=== PATIENT | female | born 1945 | race Caucasian/White ===

== ENCOUNTER → 2017-05-06 10:09 | Outpatient (CLI) | payer MEDICARE, OTHER, SELFPAY ==
[2017-05-06 12:47] LABS: Vitamin D,25 Hydroxy 27.3 ng/mL (19.95-100.01)
== END ==
PROVIDERS: Family Provider Internal Medicine; PCP Internal Medicine; Visit Provider Podiatrist
DX: S92.352A Displaced fracture of fifth metatarsal bone, left foot, initial encounter for closed fracture (principal); X58.XXXA Exposure to other specified factors, initial encounter; E55.9 Vitamin D deficiency, unspecified
CPT/HCPCS: 36415; 82306

== ENCOUNTER → 2017-12-24 09:58 | Outpatient (CLI) | payer MEDICARE, OTHER, SELFPAY | PROVIDERS: Family Provider Internal Medicine; PCP Internal Medicine; Referring Provider Podiatrist; Visit Provider Podiatrist | DX: L03.032 Cellulitis of left toe (principal) ==

== ENCOUNTER → 2017-12-24 18:02 | Outpatient (CLI) | payer SELFPAY | PROVIDERS: Visit Provider Podiatrist | DX: S91.105A Unspecified open wound of left lesser toe(s) without damage to nail, initial encounter (principal) | CPT/HCPCS: 87070; 87075; 87205 ==

== ENCOUNTER → 2018-05-29 15:38 | Outpatient (CLI) | payer MEDICARE, OTHER, SELFPAY ==
[2015-09-16 09:15] VITALS: BMI 29.2
== END ==
PROVIDERS: Referring Provider Internal Medicine Pulmonary Disease; Visit Provider Internal Medicine Pulmonary Disease
DX: J44.9 Chronic obstructive pulmonary disease, unspecified (principal); R05 Cough
CPT/HCPCS: 87070; 87077; 87186; 87205

== ENCOUNTER → 2018-08-21 09:44 | Outpatient (CLI) | payer MEDICARE, OTHER, SELFPAY ==
[2015-09-16 09:15] VITALS: BMI 29.2
[2018-08-21 12:23] LABS: Absolute Lymphocyte Count 1.54 X10^3/ul (0.83-4.51); Absolute Neutrophil Count 3.3 X10^3/uL (2.0-7.7); Basophil# 0.02 X10^3/uL; Basophil% 0.4 % (0-1); Eosinophil# 0.27 X10^3/uL; Eosinophils% 4.9 % (0-5); Hematocrit 41.2 % (37-47); Hemoglobin 13.3 g/dl (12.0-15.0); Lymphocyte # 1.54 X10^3/ul (4.0); Lymphocyte % 28.1 % (19-41); Mean Corp Hgb Conc 32.3 g/gl (32-36); Mean Corpuscular Hgb 27.1 pg (27.0-32.0); Mean Corpuscular Volume 84.1 fL (81-99); Mean Platelet Vol. 9.9 fl (6.2-12.0); Monocyte% 5.5 % (0-10); Neutrophil # 3.34 X10^3/uL (2.7-7.7); Neutrophil % 60.9 % (47-70); Platelet Count 163 K/mm3 (150-450); RBC Distribution Width CV 14.9 % (11.6-14.6); RBC Distribution Width SD 45.3 fl (35.1-43.9); White Blood Count 5.5 K/mm3 (4.4-11.0)
[2018-08-21 12:36] LABS: POSITIVE COUNT NO; POSITIVE DIFFERENTIAL NO; POSITIVE MORPHOLOGY NO
[2018-08-21 12:37] LABS: AST(SGOT) 25 U/L (15-37); Alanine Aminotransfer ALT/SGPT 27 U/L (13-56); Albumin, Serum 3.7 g/dL (3.2-5.0); Alkaline Phosphatase 92 U/L (45-117); Anion Gap 6 (5-15); BUN 24 mg/dL (7-18); BUN/Creat Ratio 22.6 RATIO (10-20); Calcium,Total 8.8 mg/dL (8.5-10.1); Chloride 107 mmol/L (98-107); Cholesterol 145 mg/dL (200); Creatinine, Serum 1.06 mg/dL (0.55-1.02); EST Glomerular Filtration Rate 54 mL/min (>60); Est Glom Filt Rate - Afr Amer 66 mL/min (>60); Free T3 1.6 pg/mL (2.18-3.98); Globulin 3.7 g/dL (2.2-4.2); Glucose 88 mg/dL (74-106); High Density Lipoprotein 35 mg/dL; Potassium 4.2 mmol/L (3.5-5.1); Protein, Total 7.4 g/dL (6.4-8.2); Sodium Level 138 mmol/L (136-145); T4 Free Direct 1.01 ng/dL (0.76-1.46); Thyroid Stim Hormone (TSH) 3.48 uIU/mL (0.358-3.74); Triglycerides 152 mg/dL; Very Low Density Lipoprotein 30 mg/dL (5-40)
[2018-08-21 13:16] LABS: Vitamin D,25 Hydroxy 38.6 ng/mL (29.95-100.01)
== END ==
PROVIDERS: Family Provider Family Medicine; PCP Family Medicine; Referring Provider Family Medicine; Visit Provider Family Medicine
DX: E55.9 Vitamin D deficiency, unspecified (principal); E03.9 Hypothyroidism, unspecified; E78.5 Hyperlipidemia, unspecified; R53.83 Other fatigue; Z51.81 Encounter for therapeutic drug level monitoring
CPT/HCPCS: 36415; 80053; 80061; 82306; 84439; 84443; 84481; 85025

== ENCOUNTER → 2018-08-21 13:16 | Outpatient (CLI) | payer MEDICARE, OTHER, SELFPAY ==
[2015-09-16 09:15] VITALS: BMI 29.2
--- NOTE | 2018-08-21 13:18 | US_ITS ---
STUDY: THYROID ULTRASOUND REASON FOR EXAM: Female, 73 years old. Thyromegaly TECHNIQUE: Ultrasound evaluation of the thyroid was performed with real-time and static stevens-scale imaging. COMPARISON: None. FINDINGS: RIGHT LOBE: The right lobe of the thyroid gland measures 3.1 x 1.1 x 1.0 cm. There is a homogeneous echotexture. There is a well-defined hypoechoic nodule of the posterior mid pole measuring 0.8 x 0.7 x 0.5 cm. There is minimal perinodular vascularity. Margins are regular. LEFT LOBE: The left lobe of the thyroid gland measures 3.1 x 0.8 x 0.9 cm. There is a homogeneous echotexture. There are no demonstrated solid, cystic or complex lesions. ISTHMUS: The isthmus measures 2 mm . The regional lymph nodes are normal. US/Thyroid IMPRESSION: Well-defined hypoechoic nodule of the posterior midpole of the right thyroid lobe measuring 0.8 x 0.7 x 0.5 cm. There is minimal perinodular vascularity. Margins are regular. There is no thyromegaly. Follow-up ultrasound in 6 months is recommended to assess for stability. Electronically Signed: Obey Hernandez MD at 22:10 EDT , Service support ,
== END ==
PROVIDERS: Family Provider Family Medicine; PCP Family Medicine; Referring Provider Family Medicine; Visit Provider Family Medicine
DX: E03.9 Hypothyroidism, unspecified (principal); E01.0 Iodine-deficiency related diffuse (endemic) goiter; E55.9 Vitamin D deficiency, unspecified; E78.5 Hyperlipidemia, unspecified; R53.83 Other fatigue; Z51.81 Encounter for therapeutic drug level monitoring
CPT/HCPCS: 36415; 76536; 80053; 80061; 82306; 84439; 84443; 84481; 85025

== ENCOUNTER → 2019-01-01 10:21 | Outpatient (CLI) | payer MEDICARE, OTHER, SELFPAY ==
[2015-09-16 09:15] VITALS: BMI 29.2
[2019-01-01 11:33] LABS: Absolute Lymphocyte Count 1.26 X10^3/uL (0.83-4.51); Basophil# 0.02 X10^3/uL; Basophil% 0.4 % (0-1); Eosinophil# 0.12 X10^3/uL; Eosinophils% 2.5 % (0-5); Hematocrit 40.5 % (37-47); Hemoglobin 12.9 g/dL (12.0-15.0); Lymphocyte # 1.26 X10^3/ul (4.0); Lymphocyte % 26.8 % (19-41); Mean Corp Hgb Conc 31.9 g/dL (32-36); Mean Corpuscular Volume 84.9 fL (81-99); Mean Platelet Vol. 9.8 fl (6.2-12.0); Monocyte# 0.29 X10^3/uL; Monocyte% 6.2 % (0-10); NRBC Flagged by Analyzer 0 % (0-5); Neutrophil # 3.01 X10^3/uL (2.7-7.7); Neutrophil % 63.9 % (47-70); Platelet Count 143 K/mm3 (150-450); RBC Distribution Width CV 14.4 % (11.6-14.6); RBC Distribution Width SD 44.6 fl (35.1-43.9); Red Blood Count 4.77 M/mm3 (4.2-5.4); White Blood Count 4.7 K/mm3 (4.4-11.0)
== END ==
PROVIDERS: Family Provider Family Medicine; PCP Family Medicine; Referring Provider Internal Medicine Pulmonary Disease; Visit Provider Internal Medicine Pulmonary Disease
DX: J44.9 Chronic obstructive pulmonary disease, unspecified (principal); T78.40XA Allergy, unspecified, initial encounter
CPT/HCPCS: 36415; 85025

== ENCOUNTER → 2019-02-20 09:02 | Outpatient (CLI) | payer MEDICARE, OTHER, SELFPAY ==
--- NOTE | 2019-02-20 09:05 | US_ITS ---
STUDY: THYROID ULTRASOUND REASON FOR EXAM: Female, 73 years old. Thyroid nodule TECHNIQUE: Ultrasound evaluation of the thyroid was performed with real-time and static stevens-scale imaging. COMPARISON: 08/21/2018 FINDINGS: RIGHT LOBE: The right lobe of the thyroid gland measures 2.9 x 1.2 x 1.1 cm. There is a homogeneous echotexture. There is no change in the 8 mm hypoechoic solid nodule posteriorly in the right lobe consistent with an adenoma. LEFT LOBE: The left lobe of the thyroid gland measures 3.4 x 1.0 x 1.2 cm. There is a homogeneous echotexture. There are no demonstrated solid, cystic or complex lesions. ISTHMUS: The isthmus measures 2 mm thick. . The regional lymph nodes are normal. US/Thyroid IMPRESSION: No change in 8mm adenoma the right lobe. Electronically Signed: Hunter Dai MD at 11:16 EST Tel , Service support ,
== END ==
PROVIDERS: Family Provider Family Medicine; PCP Family Medicine; Referring Provider Family Medicine; Visit Provider Family Medicine
DX: E04.1 Nontoxic single thyroid nodule (principal)
CPT/HCPCS: 76536

== ENCOUNTER 2019-05-14 15:35 | Emergency (ER) | payer MEDICARE, OTHER, SELFPAY ==
[2019-05-14 15:37] VITALS: BP 137/90; PULSE 112; RESP 18; TEMP 37.3; O2SAT 96; BMI 28.8
--- NOTE | 2019-05-14 16:53 | RAD_ITS ---
STUDY: X-RAY - LEFT KNEE REASON FOR EXAM: Female, 73 years old. pain after fall TECHNIQUE: 3 view(s) of the knee. COMPARISON: None. FINDINGS: Normal visualized distal femur. Normal visualized proximal tibia and fibula. Normal proximal tibiofibular articulation. Mildly narrowed medial femorotibial compartment. Normal lateral femorotibial compartment. Normal patellofemoral articulation. The soft tissue structures are unremarkable. RAD/Knee 3 Views IMPRESSION: Mild degenerative changes. No evidence for acute fracture Electronically Signed: Irwin Pena MD at 18:08 EST , Service support ,
--- NOTE | 2019-05-14 16:53 | RAD_ITS ---
STUDY: X-RAY - PELVIS REASON FOR EXAM: Female, 73 years old. pain after fall TECHNIQUE: One view of the pelvis was obtained. COMPARISON: None. FINDINGS: There is a non-specific bowel gas pattern. Normal visualized soft tissue structures. Normal bilateral iliac wings, sacroiliac joints and visualized sacrum. Normal visualized bilateral superior and inferior pubic rami. Normal pubic symphysis. Normal ischial tuberosities. Normal visualized right femoral head. Normal right acetabulum. Normal right hip joint. Normal visualized left femoral head. Normal left acetabulum. Severely narrowed left hip joint RAD/Pelvis 1 or 2 Views IMPRESSION: No evidence for acute hip or pelvic fracture Electronically Signed: Irwin Pena MD at 18:07 EST , Service support ,
--- NOTE | 2019-05-14 16:53 | RAD_ITS ---
STUDY: X-RAY - LEFT FEMUR REASON FOR STUDY: Female, 73 years old. pain after fall TECHNIQUE: 4 view(s) of the femur. COMPARISON: None. FINDINGS: Normal visualized femur. Normal visualized soft tissue structure. 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
--- NOTE | 2019-05-14 16:53 | CT_ITS ---
STUDY: CT CERVICAL SPINE WITHOUT CONTRAST REASON FOR EXAM: Female, 73 years old. PT STATED FALL YESTERDAY RADIATION DOSAGE (If Supplied By Facility): CTDIvol = ( 22.26 ) mGy, DLP = ( 493.39 ) mGycm TECHNIQUE: High resolution transaxial imaging was performed without contrast material. Sagittal and coronal images were reconstructed. Individualized dose optimization techniques were used for this CT. COMPARISON: None FINDINGS: Normal craniovertebral junction. Normal anterior atlantoaxial articulation. Normal odontoid process. Decreased cervical lordosis. Normal vertebral bodies and posterior osseous elements. C2-3: Normal endplates. Normal disc height and morphology. Normal central canal. Mild right neuroforaminal stenosis and severe narrowing on the left secondary to bony hypertrophy. C3-4: Mild endplate spurring.. Normal disc height and morphology. Normal central canal. Severe bilateral neuroforaminal stenosis secondary to bony hypertrophy. C4-5: Mild endplate spurring.. Normal disc height and morphology. Normal central canal. Mild bilateral neural foraminal encroachment secondary to bony hypertrophy.. C5-6: Narrowed disc space and endplate spurring. Mild narrowing of the central canal. Severe right neuroforaminal stenosis secondary to bony hypertrophy. C6-7: Narrowed disc space and endplate spurring. No focal disc protrusion. Moderate left neuroforaminal stenosis secondary to bony hypertrophy.. C7-T1: Normal endplates. Normal disc height and morphology. Normal central canal and intervertebral neuroforamina. Normal visualized soft tissue structures. CT/Spine Cervical without Contras IMPRESSION: No evidence for acute fracture or subluxation. Advanced spondylosis and multilevel spinal stenosis largely due to bony hypertrophy. Electronically Signed: Irwin Pena MD at 17:47 EST , Service support ,
--- NOTE | 2019-05-14 16:53 | CT_ITS ---
STUDY: CT BRAIN WITHOUT CONTRAST REASON FOR EXAM: Female, 73 years old. PT STATED FALL YESTERDAY RADIATION DOSAGE (If Supplied By Facility): CTDIvol = ( 44.99 ) mGy, DLP = ( 779.24 ) mGycm TECHNIQUE: Transaxial CT imaging of the brain was performed without administration of intravenous contrast material. Individualized dose optimization techniques were used for this CT. COMPARISON: No relevant priors. FINDINGS: Normal soft tissue structures. Normal calvarium. Calcification of cavernous carotids. Mild atrophy and moderate periventricular white matter ischemic changes. Normal basal ganglia and thalami. Normal brainstem. Normal cerebellum. There is no intracranial hemorrhage. There are no findings of an acute ischemic infarction. Normal visualized paranasal sinuses. CT/Brain/Head without Contrast IMPRESSION: Moderate periventricular white matter ischemic changes. No evidence for acute intracranial bleed. Electronically Signed: Irwin Pena MD at 17:43 EST , Service support ,
--- NOTE | 2019-05-14 16:53 | RAD_ITS ---
STUDY: X-RAY - LEFT TIBIA AND FIBULA REASON FOR EXAM: Female, 73 years old. pain after fall TECHNIQUE: 2 view(s) of the tibia and fibula were obtained. COMPARISON: None. FINDINGS: Normal visualized tibia. Normal visualized fibula. The soft tissue structures are unremarkable. RAD/Tibia & Fibula 2 Views IMPRESSION: Normal x-ray examination of the tibia and fibula. Electronically Signed: Irwin Pena MD at 18:08 EST , Service support ,
--- NOTE | 2019-05-14 16:53 | RAD_ITS ---
STUDY: X-RAY - LEFT FOOT CLINICAL: Female, 73 years old. pain after a fall TECHNIQUE: 3 view(s) of the foot. COMPARISON: None. FINDINGS: Status post talonavicular fusion.. Prominent posterior enthesophyte of the calcaneus Normal visualized subtalar, talonavicular, calcaneocuboid, tarsal and tarsometatarsal articulations. Normal metatarsi. Normal metatarsophalangeal joint of the great toe. Normal tibial and fibular sesamoid bones. Normal interphalangeal joint of the great toe. Normal phalanges of the great toe. Normal second through fifth metatarsophalangeal joints. Normal interphalangeal joints. 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 The soft tissue structures are unremarkable. RAD/Foot min 3 Views IMPRESSION: No evidence for acute fracture or dislocation. Other findings as above Electronically Signed: Irwin Pena MD at 18:05 EST , Service support ,
--- NOTE | 2019-05-14 16:54 | EKG12_ITS ---
Test Reason : FELL Blood Pressure : / mmHG Vent. Rate : 104 BPM Atrial Rate : 104 BPM P-R Int : 132 ms QRS Dur : 068 ms QT Int : 320 ms P-R-T Axes : -12 -49 -19 degrees QTc Int : 420 ms Sinus tachycardia Left axis deviation Anterolateral infarct , age undetermined , cannot be excluded Abnormal ECG Confirmed by JORDON MANN, HEMA ([id number]), tape editor MILI MARTELL ([id number]) on 05/18/2019 9:51:26 AM Referred By: NOEMI Confirmed By:HEMA RUVALCABA MD
--- NOTE | 2019-05-14 16:59 | ED.VIS.FALL ---
History of Present Illness Chief Complaint: Fall Informant: Patient, Family Occurred: Yesterday Mechanism/Context: Same level fall Usually ambulates: Walker Quality of Pain: - - pain Current Severity: Severe Maximum Severity: Severe Worsened by: movement, palpation Relieved by: nothing Narrative: Patient fell last night in her bathroom and has no idea why or if she had any prodromal symptoms or not. Son states that she had a sudden syncopal episode 4 months ago and wonders if maybe she had another one today but he did not witness it, he just heard her fall from another room and then went to find her dazed but not unconscious. She has fibromyalgia for which she sees pain management and is on Opana in addition to other pain medications, walks with a walker at baseline, and states that her pain is usually relatively well controlled but has not been since she fell yesterday. She has not been able to walk at all since then due to pain in her left lower extremity mostly. She also hit her head and it is giving her pain throughout her neck as well. No new focal neurologic symptoms but she has a history of weakness in her left side due to polio. - Past Medical History (1) Fibromyalgia Status: Chronic (2) Polio Status: Chronic Past Medical History - Allergies and Home Meds Allergies/Adverse Reactions: Allergies meperidine HCl [From Demerol] Allergy (Verified 05/14/19 15:35) HALLUCINATIONS Primary Care Physician: Norma Contreras DO [Primary Care Provider] - Lives: With Family Smoking Status: Former smoker Review of Systems General: Denies: Chills, Fever, Sweats Eyes: Denies: Visual changes - bilaterally, Diplopia ENT: Denies: Bilateral ear pain, Rhinorrhea, Sore throat Cardiovascular: Denies: Chest pain, Palpitations Respiratory: Denies: Dyspnea, Cough, Dyspnea on exertion Gastrointestinal: Denies: Abdominal pain, Nausea, Vomiting, Diarrhea, Melena, Hematochezia Genitourinary: Denies: Dysuria, Hematuria, Frequency Musculoskeletal: Reports: Neck pain, Back pain - Chronic, unchanged, Extremity Pain Skin: Denies: Rash, Abscess, Wounds Neurological: Reports: Headache, Weakness - Chronic left side, unchanged. Denies: Numbness Psych: Reports: Anxiety. Denies: Suicidal thoughts Physical Exam Vital Signs/Narrative: Vital Signs Temp Pulse Resp BP Pulse Ox 05/14/19 15:37 99.2 F H 112 H 18 137/90 H 96 Inital Vital Signs reviewed: Yes General: Well nourished, Well developed, - - NAD. Appears uncomfortable in pain Head: Normocephalic, Atraumatic Eyes: Perrl, EOMI ENT: TM's clear, No hemotympanum or drainage, No trauma, - - No midfacial tenderness/trauma. Negative for: Hemotympanum, Otorrhea, Nasal trauma Neck: Spinal Tenderness - Diffuse without step-off or evidence of trauma, Paraspinal Tenderness - Diffuse bilateral Cardiovascular: Regular rate, Regular rhythm, No murmurs Respiratory: No distress, CTA bilaterally, Chest nontender Abdomen: Soft, Nontender, Nondistended, Normal bowel sounds Back: Nontender Extremeties: Able to move left lower extremity throughout. Limited in ankle. Tenderness throughout the left lower extremity even with very superficial palpation, with the exception only at the toes. She is tender everywhere else and it is a very nonfocal exam, from the hip all the way down to the foot. There is a small contusion on the patella anteriorly. There is no deformities. There is no effusion in the knee. The ankle appears little swollen diffusely. The other 3 extremities are atraumatic with range of motion throughout without pain. Skin: Normal color, No rash, No Trauma Neurological: Alert, Oriented x3, Cranial nerves II-XII grossly intact, Normal Sensation, Weakness - Mild, left side Psychological: - - Anxious Diagnostic/Tx/Re-eval Impressions Brain CT 05/14/19 16:53 IMPRESSION: Moderate periventricular white matter ischemic changes. No evidence for acute intracranial bleed. Electronically Signed: Irwin Pena MD at 17:43 EST , Service support , Cervical Spine CT 05/14/19 16:53 IMPRESSION: No evidence for acute fracture or subluxation. Advanced spondylosis and multilevel spinal stenosis largely due to bony hypertrophy. 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 Other findings as above Electronically Signed: Irwin Pena MD at 18:05 EST , Service support , Knee X-Ray 05/14/19 16:53 IMPRESSION: Mild degenerative changes. No evidence for acute fracture Electronically Signed: Irwin Pena MD at 18:08 EST , Service support , Pelvis X-Ray 05/14/19 16:53 IMPRESSION: No evidence for acute hip or pelvic fracture Electronically Signed: Irwin Pena MD at 18:07 EST , Service support , Tibia/Fibula X-Ray 05/14/19 16:53 IMPRESSION: Normal x-ray examination of the tibia and fibula. Electronically Signed: Irwin Pena MD at 18:08 EST , Service support , Ankle X-Ray 05/14/19 17:30 IMPRESSION: Bimalleolar sprain. No evidence for acute fracture Electronically Signed: Irwin Pena MD at 18:02 EST , Service support , 05/14/19 16:53 CT Brain [Brain/Head without Contrast] [CT] Stat Femur Min 2 Views [RAD] Stat Foot min 3 Views [RAD] Stat Knee 3 Views [RAD] Stat Pelvis 1 or 2 Views [RAD] Stat Spine Cervical without Contras [CT] Stat Tibia & Fibula 2 Views [RAD] Stat 05/14/19 17:30 Ankle min 3 Views [RAD] Stat Laboratory Results 05/14/19 05/14/19 05/14/19 17:10 17:10 18:40 WBC 8.3 RBC 4.78 Hgb 12.4 Hct 39.9 MCV 83.5 MCH 25.9 L MCHC 31.1 L RDW Std Deviation 47.7 H RDW Coeff of Shahnaz 15.7 H Plt Count 120 L MPV 10.3 Immature Gran % (Auto) 0.100 Neut % (Auto) 87.4 H Lymph % (Auto) 7.7 L [place] % (Auto) 4.3 Eos % (Auto) 0.4 Baso % (Auto) 0.1 Absolute Neuts (auto) 7.2 Absolute Lymphs (auto) 0.64 L Nucleated RBC % 0 Sodium 139 Potassium 3.8 Chloride 107 Carbon Dioxide 27.0 Anion Gap 5 BUN 19 H Creatinine 1.00 Estim Creat Clear Calc 42.68 Est GFR (MDRD) Af Amer 70 Est GFR (MDRD) Non-Af 58 L BUN/Creatinine Ratio 19.0 Glucose 106 Calcium 9.0 Troponin I < 0.015 Urine Color Yellow Urine Clarity Clear Urine pH 6.0 Ur Specific Lilly 1.020 Urine Protein 30 H Urine Glucose (UA) Normal Urine Ketones 50 H Urine Occult Blood 25 H Urine Nitrite Negative Urine Bilirubin Negative Urine Urobilinogen Normal Ur Leukocyte Esterase 25 H Urine RBC 0 SEEN Urine WBC 0-5 SEEN Ur Squamous Epith Cells 0-5 SEEN Urine Bacteria RARE Urine Mucus 0 SEEN - Rhythm Strip Rhythm Strip: Sinus Tach Rate: 104 Ectopy: None - EKG Initial EKG Interpretation: No Acute Injury Pattern, Sinus Tachycardia, Non-Specific ST Changes, - - lad Prior: No Prior - Medical Decision Making Work-up is unremarkable. She did not lose consciousness, but he has been found her awake right after the fall. Work-up shows no sign of an intracranial injury, cervical injury, or bony injury of the left lower extremity. Her left ankle is a little swollen, family states it was not like that before the fall, consistent with a sprain. The exact mechanism of the injury of her ankle is unknown. She had an extended visit in the ER because she was in so much pain, her fibromyalgia did not help matters. She was having neck spasms. She was not able to bear weight, but once we got an Aircast on her ankle, she was able to bear weight with a walker without any other assistance. is comfortable taking her home. Given appropriate discharge instructions and reasons to return. The cause of the fall is unknown but I see no concerning abnormalities on her work-up. This is only the second time this is happened, and as I discussed with the , I know she is on muscle relaxers and medication such as Opana can certainly cause people to have a higher risk of falling, but she also has a history of polio with residual weakness in the left lower extremity which could also cause her to fall. Follow-up advised. ED Disposition - Plan for ED Patient: Disposition: Home or Assisted Living Diagnosis: Fibromyalgia, Injury of left lower extremity, Fall, Left ankle sprain, Cervical strain, acute Instructions: FALL, Uncertain Cause, Sprain, Ankle, with X-Ray Referrals: Norma Contreras DO [Primary Care Provider] - 3-5 Days
--- NOTE | 2019-05-14 17:06 | ED.RN ---
NO OLD EKG
[2019-05-14] MEDS: HYDROmorphone 1 MG/ML Syringe IV (17:12)
[2019-05-14 17:25] LABS: Absolute Lymphocyte Count 0.64 X10^3/uL (0.83-4.51); Absolute Neutrophil Count 7.2 X10^3/uL (2.0-7.7); Basophil# 0.01 X10^3/uL; Basophil% 0.1 % (0-1); Eosinophil# 0.03 X10^3/uL; Eosinophils% 0.4 % (0-5); Hematocrit 39.9 % (37-47); Hemoglobin 12.4 g/dL (12.0-15.0); Lymphocyte # 0.64 X10^3/ul (4.0); Lymphocyte % 7.7 % (19-41); Mean Corp Hgb Conc 31.1 g/dL (32-36); Mean Corpuscular Hgb 25.9 pg (27.0-32.0); Mean Corpuscular Volume 83.5 fL (81-99); Mean Platelet Vol. 10.3 fl (6.2-12.0); Monocyte# 0.36 X10^3/uL; Monocyte% 4.3 % (0-10); NRBC Flagged by Analyzer 0 % (0-5); Neutrophil # 7.23 X10^3/uL (2.7-7.7); Neutrophil % 87.4 % (47-70); Platelet Count 120 K/mm3 (150-450); RBC Distribution Width CV 15.7 % (11.6-14.6); RBC Distribution Width SD 47.7 fl (35.1-43.9); Red Blood Count 4.78 M/mm3 (4.2-5.4); White Blood Count 8.3 K/mm3 (4.4-11.0)
--- NOTE | 2019-05-14 17:30 | RAD_ITS ---
STUDY: X-RAY - LEFT ANKLE REASON FOR EXAM: Female, 73 years old. fall yesterday, pain TECHNIQUE: 3 view(s) of the ankle. COMPARISON: None. FINDINGS: Normal visualized distal tibia and fibula. Normal medial and lateral malleoli. Normal tibiotalar articulation and ankle mortise. Normal visualized talus . Plantar calcaneal spur and posterior enthesophyte The visualized subtalar, talonavicular, calcaneocuboid and tarsal articulations are normal. Bimalleolar soft tissue swelling.. RAD/Ankle min 3 Views IMPRESSION: Bimalleolar sprain. No evidence for acute fracture Electronically Signed: Irwin Pena MD at 18:02 EST , Service support ,
[2019-05-14 17:43] LABS: Anion Gap 5 (5-15); BUN 19 mg/dL (7-18); Chloride 107 mmol/L (98-107); EST Glomerular Filtration Rate 58 mL/min (>60); Est Glom Filt Rate - Afr Amer 70 mL/min (>60); Estimated Creatinine Clearance 42.68 ml/min; Glucose 106 mg/dL (74-106); Potassium 3.8 mmol/L (3.5-5.1); Sodium Level 139 mmol/L (136-145)
[2019-05-14 17:52] VITALS: BP 137/75; PULSE 110; RESP 18; O2SAT 99
[2019-05-14 18:53] LABS: Mucous, Urine 0 SEEN /hpf (<or=2+); Red Blood Cells-Urine 0 SEEN /hpf (0-5)
[2019-05-14 19:01] VITALS: BP 90/75; PULSE 107; RESP 16; O2SAT 95
[2019-05-14 19:01] LABS: Color, Urine Yellow (Yellow); Glucose, Dipstick Normal (Normal); Ketone-Dipstick 50 mg/dl (Negative); Leukocyte Esterase-Dipstick 25 /ul (Negative); Nitrite-Dipstick Negative (Negative); Occult Blood-Urine 25 /ul (Negative); Protein-Dipstick 30 mg/dl (Negative); Urine Bilirubin Dipstick Negative (Negative); Urine Clarity Clear (Clear); Urine Urobilinogen Normal (Normal)
[2019-05-14 19:39] LABS: Bacteria RARE /hpf (None Seen); Squamous Epithelial Cells - UA 0-5 SEEN /hpf (5-10); White Blood Cells 0-5 SEEN /hpf (0-5)
[2019-05-14] MEDS: HYDROmorphone 0.5 MG/0.5 ML SYRINGE IV (20:18)
[2019-05-14 21:00] VITALS: BP 102/77; PULSE 102; RESP 17; O2SAT 94
[2019-05-14 22:22] VITALS: BP 101/87; PULSE 100; RESP 18; O2SAT 98
== END 2019-05-14 22:23 | disposition home or self-care (01) ==
PROVIDERS: Emergency Provider Emergency Medicine; PCP Family Medicine
DX: S16.1XXA Strain of muscle, fascia and tendon at neck level, initial encounter (principal); S93.402A Sprain of unspecified ligament of left ankle, initial encounter; S80.02XA Contusion of left knee, initial encounter; W18.39XA Other fall on same level, initial encounter; Y93.9 Activity, unspecified; Y92.012 Bathroom of single-family (private) house as the place of occurrence of the external cause; M79.7 Fibromyalgia; Z87.891 Personal history of nicotine dependence
CPT/HCPCS: 70450; 72125; 72170; 73552; 73562; 73590; 73610; 73630; 80048; 81001; 84484; 85025; 93005; 96361; 96374; 96376; 99285; J7040; A4216

== ENCOUNTER → 2019-08-24 08:32 | Outpatient (CLI) | payer MEDICARE, OTHER, SELFPAY ==
[2019-08-24 09:18] LABS: Absolute Lymphocyte Count 1.39 X10^3/uL (0.83-4.51); Absolute Neutrophil Count 3.1 X10^3/uL (2.0-7.7); Basophil# 0.03 X10^3/uL; Basophil% 0.6 % (0-1); Eosinophil# 0.21 X10^3/uL; Eosinophils% 4.3 % (0-5); Hematocrit 41.9 % (37-47); Hemoglobin 13.3 g/dL (12.0-15.0); Lymphocyte # 1.39 X10^3/ul (4.0); Lymphocyte % 28.2 % (19-41); Mean Corp Hgb Conc 31.7 g/dL (32-36); Mean Corpuscular Hgb 27.1 pg (27.0-32.0); Mean Corpuscular Volume 85.5 fL (81-99); Mean Platelet Vol. 10.4 fl (6.2-12.0); Monocyte# 0.23 X10^3/uL; Monocyte% 4.7 % (0-10); NRBC Flagged by Analyzer 0 % (0-5); Neutrophil # 3.06 X10^3/uL (2.7-7.7); POSITIVE COUNT YES; RBC Distribution Width SD 46.8 fl (35.1-43.9); White Blood Count 4.9 K/mm3 (4.4-11.0)
[2019-08-24 09:21] LABS: Platelet Count 106 K/mm3 (150-450)
[2019-08-24 09:56] LABS: ALB/GLOB Ratio 0.9 RATIO (0.9-2.4); AST(SGOT) 38 U/L (15-37); Alanine Aminotransfer ALT/SGPT 28 U/L (13-56); Albumin, Serum 3.5 g/dL (3.2-5.0); Alkaline Phosphatase 96 U/L (45-117); Anion Gap 4 (5-15); BUN 16 mg/dL (7-18); BUN/Creat Ratio 17.5 RATIO (10-20); Calcium,Total 9.7 mg/dL (8.5-10.1); Chloride 107 mmol/L (98-107); Cholesterol 151 mg/dL (200); Creatinine, Serum 0.91 mg/dL (0.55-1.02); EST Glomerular Filtration Rate 64 mL/min (>60); Est Glom Filt Rate - Afr Amer 78 mL/min (>60); Free T3 1.6 pg/mL (2.18-3.98); Glucose 82 mg/dL (74-106); High Density Lipoprotein 37 mg/dL; Potassium 4.4 mmol/L (3.5-5.1); Protein, Total 7.5 g/dL (6.4-8.2); Sodium Level 141 mmol/L (136-145); T4 Free Direct 1.06 ng/dL (0.76-1.46); Thyroid Stim Hormone (TSH) 2.19 uIU/mL (0.358-3.74); Triglycerides 133 mg/dL; Very Low Density Lipoprotein 27 mg/dL (5-40)
== END ==
PROVIDERS: Family Provider Family Medicine; PCP Family Medicine; Referring Provider Family Medicine; Visit Provider Family Medicine
DX: E55.9 Vitamin D deficiency, unspecified (principal); E03.9 Hypothyroidism, unspecified; E78.5 Hyperlipidemia, unspecified; R53.83 Other fatigue; Z51.81 Encounter for therapeutic drug level monitoring
CPT/HCPCS: 36415; 80053; 80061; 82306; 84439; 84443; 84481; 85025

== ENCOUNTER → 2019-09-09 10:34 | Outpatient (CLI) | payer MEDICARE, OTHER, SELFPAY ==
--- NOTE | 2019-09-09 10:53 | EKG12_ITS ---
Test Reason : PRE OP Blood Pressure : / mmHG Vent. Rate : 083 BPM Atrial Rate : 083 BPM P-R Int : 174 ms QRS Dur : 072 ms QT Int : 360 ms P-R-T Axes : 032 -55 010 degrees QTc Int : 423 ms Normal sinus rhythm Left axis deviation Anterolateral infarct , age undetermined Abnormal ECG Confirmed by MANASA SIMS ([id number]), editor index MILI MARTELL ([id number]) on 09/15/2019 8:26:35 AM Referred By: DANNY NELSON Confirmed By:MANASA SIMS
== END ==
PROVIDERS: PCP Family Medicine
DX: Z79.899 Other long term (current) drug therapy (principal)
CPT/HCPCS: 93005

== ENCOUNTER → 2019-11-20 10:31 | Outpatient (CLI) | payer MEDICARE, OTHER, SELFPAY ==
[2019-11-20 12:44] LABS: Free T3 1.7 pg/mL (2.18-3.98); Thyroid Stim Hormone (TSH) 0.07 uIU/mL (0.358-3.74)
== END ==
PROVIDERS: PCP Family Medicine; Visit Provider Family Medicine
DX: E03.9 Hypothyroidism, unspecified (principal)
CPT/HCPCS: 36415; 84439; 84443; 84481

== ENCOUNTER → 2020-04-04 11:14 | Outpatient (CLI) | payer MEDICARE, OTHER, SELFPAY ==
[2020-04-04 13:42] LABS: T4 Free Direct 0.63 ng/dL (0.76-1.46); Thyroid Stim Hormone (TSH) 0.01 uIU/mL (0.358-3.74)
== END ==
PROVIDERS: PCP Family Medicine; Visit Provider Family Medicine
DX: E03.9 Hypothyroidism, unspecified (principal)
CPT/HCPCS: 36415; 84439; 84443; 84481

== ENCOUNTER → 2020-06-21 15:16 | Outpatient (CLI) | payer MEDICARE, OTHER, SELFPAY ==
[2020-06-21 16:50] LABS: Free T3 2.7 pg/mL (2.18-3.98); T4 Free Direct 0.43 ng/dL (0.76-1.46); Thyroid Stim Hormone (TSH) 0.02 uIU/mL (0.358-3.74)
== END ==
PROVIDERS: PCP Family Medicine; Referring Provider Family Medicine; Visit Provider Family Medicine
DX: E03.9 Hypothyroidism, unspecified (principal)
CPT/HCPCS: 84439; 84443; 84481

== ENCOUNTER → 2020-08-31 09:29 | Outpatient (CLI) | payer MEDICARE, OTHER, SELFPAY ==
--- NOTE | 2020-08-31 09:33 | EKG12_ITS ---
Test Reason : HIGH RISK MEDS Blood Pressure : / mmHG Vent. Rate : 087 BPM Atrial Rate : 087 BPM P-R Int : 164 ms QRS Dur : 074 ms QT Int : 352 ms P-R-T Axes : 032 -43 007 degrees QTc Int : 423 ms Normal sinus rhythm Left axis deviation Low voltage QRS Abnormal ECG Confirmed by CAROLINA MANN, JEWELL ([id number]), television news video editor MILI MARTELL ([id number]) on 09/01/2020 11:18:14 A M Referred By: DANNY ANAYA Confirmed By:KYLE FIGUEROA MD
== END ==
PROVIDERS: PCP Family Medicine
DX: Z79.891 Long term (current) use of opiate analgesic (principal)
CPT/HCPCS: 93005

== ENCOUNTER 2021-06-14 06:38 | Observation (INO) | payer MEDICARE, OTHER, SELFPAY ==
--- NOTE | 2021-03-14 21:15 | PCM.HP.BLA ---
History and Physical History and Physical [facility] Patient Name: Veronica Bazzi : 1945 From: ELYSE DAVIS PA-C DATE OF SURGERY: 03/22/2021 SCHEDULED PROCEDURE: left total hip arthroplasty HISTORY OF PRESENT ILLNESS: Preoperative history and physical exam was performed on March 06, 2021. This is a 75-year-old female who has had ongoing pain for years with her left hip. It is been getting progressively worse over the past 1 year. Patient's pain has been dull and stabbing with burning. Pain can reach 9/10 with activities. Pain is increased with going up and down stairs, walking, standing. She has pain getting up from a seated position. She does have start up pain. She feels weaker on the left when compared to the right. She gets occasional numbness down the left leg. Pain is located in the buttock region and groin. It does occasionally wake her at night. She feels unsafe going up and down stairs and walking due to the pain. She has difficulty with activities of daily living including housework, shopping, and leisure activities such as walking. Patient has tried rest and heat with minimal relief. She has been using a cane. She is currently in pain management in which she is currently using methadone and Percocet. Patient denies previous surgery on the left hip. 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 Patient currently denies any recent chest pain, shortness of breath, fevers chills or recent infections. We are obtaining surgical clearance from her primary care physician Dr. Contreras. We are also reaching out the patient's pain management physician for postoperative narcotics. Patient has medical history pertinent for fibromyalgia, thyroid disease, post polio, depression, chronic obstructive pulmonary disease, sleep apnea with use of CPAP machine, and hypertension. REVIEW OF SYSTEMS: ROS: Const: Reports anxiety, weight change, but denies anorexia, fever and difficulty sleeping. CV: Reports peripheral vascular disease, but denies chest pain, heart murmur and irregular heartbeat. Resp: Reports sleep apnea, shortness of breath and wheezing, but denies asthma, cough, pneumonia and tuberculosis. GI: Reports constipation, but denies diarrhea, heartburn, nausea, rectal itching, bloody stools and vomiting. : Denies incontinence. Musculo: Reports pain, trouble walking and weakness, but denies leg swelling. Skin: Denies Raynaud's, history of shingles and tattoo. Neuro: Reports difficulty with balance and dizziness but denies ambulatory dysfunction, numbness/tingling and tremor. Psych: Reports anxiety, depression and stress, but denies insomnia and mental illness. Eleazar/Lymph: Denies anemia, bleeding/bruising tendency and past transfusion. Reviewed, no changes. PAST MEDICAL HISTORY: Advance Care Plan: No Advance Directives Effective Date: 01/09/2021 PMH: Medical Problems: Arthritis, Fibromyalgia, Thyroid Disease, Post Polio, Depression, Chronic Obstructive Pulmonary Disease (COPD), Sleep Apnea, High Blood Pressure Accidents: Fracture - BACK FX - 1999 LT ANKLE FX IN [employer] RT Ankle - (05/14/2019) Surgical Hx: Appendectomy - (1966) GTZ Gallbladder - [facility]Z Shoulder Arthroscopy Rt - (12/18/2008) [facility] BY DR. SEGAL Anesthesia Complications: None Assistive Devices: Cane, Glasses, Brace Reviewed and updated. SOCIAL HISTORY: SH: Marital: .Occupation: Homemaker.Work Status: Housewife.Hand Dominance: Right-handed. Personal Habits: Cigarette Use: Former - 2 PACKS/DAY FOR 10 YEARS.Smokeless Tobacco: Never Used Smokeless Tobacco.E-Cigarette Use: Never used.Alcohol: Currently consumes alcohol, Has consumed alcohol in the past, Occasionally.Drug Use: Denies Use.Enjoy Exercising: Never Exercises. Reviewed, no changes. VITALS: Ht: 59 Wt: 131lb 4oz Wt k.535 BMI: 26.5 BP: 140/60 Pulse: 102 Resp: 20 T: 95.4 T: 35.2C Pain Level: 5 ALLERGIES: Vicodin - Sick Demerol - Goofy MEDICATIONS: Percocet 5-325 mg 1-2 po q6H PRN PAIN, Neurontin 300 mg 1 po BID, Lopressor 50 mg 1/2-1 tab PO daily, Calcium 400mg 1 tab PO tid, Trazodone HCL 150 mg 1 tab PO qhs, Zoloft 100 mg 2 tabs PO daily, Methadone HCL 5 mg 1po q12hrs prn, Senokot 8.6 mg 1 by mouth once daily, Aspirin Adult Low Dose 81 mg by mouth 1 a day, Trelegy Ellipta 100-62.5-25 mcg/Inh once A day, Prilosec OTC 20 mg 1 by mouth every day, Ventolin HFA 108 (90 Base) mcg/Act as needed, Levothyroxine Sodium 25 mcg 1po qday, Daily Vitamin , Liothyronine Sodium 25 mcg, Diclofenac Potassium 25 mg 3 daily, Atorvastatin Calcium 10 mg 1 by mouth every day, Flonase Allergy Relief 50 mcg/Act 0.5mcg, Montelukast Sodium 10 mg 1 by mouth every day, Ipratropium [place] 0.06 % twice a day, Bupropion Hydrochloride ER (XL) 300 mg, Alprazolam 0.5 mg 1 by mouth every day, Ipratropium [place] 0.06 % twice a day PRE-OP EXAM: General appearance:NORMAL Other: Eyes: Conjunctivae and lids: NORMAL Pupils: ERR Ears, Nose, Mouth, and Throat: NORMAL Other: Inspection of lips, teeth and gums: NORMAL Other: Neck: Examination of neck: no masses noted. Respiratory: Assessment of respiratory effort: NORMAL Other: Auscultation of lungs: clear to auscultation no wheezes, rhonchi or rales. Cardiovascular: Auscultation of heart: regular rate and rhythm, no murmurs, gallops or rubs. PHYSICAL EXAMINATION: Patient does walk with an antalgic gait using I cane. Patient has foot drop on the right. She has tenderness to palpation over bilateral greater trochanteric regions. Left hip range of motion: 80 flexion, internal rotation 40, external rotation 35 with pain on range of motion. 4/5 hip strength secondary to pain. Left leg is 4 mm shorter than the right. IMAGING STUDIES: Previous x-rays of the left hip reveal joint space narrowing, subchondral sclerosis, osteophyte formation consistent with severe stage IV osteoarthritis with bony erosions of the femoral head and acetabulum. Acetabulum shows evidence of dysplastic nature where shallow acetabulum likely related to her polio. IMPRESSION: 1. Severe left hip osteoarthritis 2. Fibromyalgia 3. Hypertension 4. Thyroid disease 5. Depression 6. Chronic obstructive pulmonary disease 7. Sleep apnea 8. Postpolio PLAN: Dr. Lyle Mora did discuss and review with the patient all treatment options including surgical versus nonsurgical options. Patient does wish to proceed with the above-stated procedure. Potential risks, benefits, and complications of the procedure were discussed in detail including but not limited to , infection, nerve and blood vessel damage, persistent pain, numbness, tingling, paresthesias, blood clot, pulmonary embolism, and requirement for possible further surgery. The patient expressed full understanding and has no further questions for the doctor. Patient does agree to proceed with the above-stated procedure and has signed the surgery consent form. We discussed the current risks associated with COVID 19. This does include the risk of exposure while in the hospital. Patient was reassured local hospitals have low infection rates and are taking all necessary precautions to avoid exposure to patients. In addition, we discussed strategies that can be used to help limit exposure including those that limit the patient's time in the hospital. Also using strategies to limit the patient's need for continued inpatient services after being discharged from the hospital. Patient was notified that we will need to comply with any screening or testing the hospital wishes to perform or that surgery may be delayed for any positive results. This dictation was created using voice recognition software. Phonetic and/or grammatical errors may exist. ___ I have re-examined the patient. There are no clinical changes since date of exam. ___ See progress notes for changes. ___ Dictated on admission Date: Time: Signature:
--- NOTE | 2021-03-20 10:20 | EKG12_ITS ---
Test Reason : PREOP Blood Pressure : / mmHG Vent. Rate : 079 BPM Atrial Rate : 079 BPM P-R Int : 162 ms QRS Dur : 074 ms QT Int : 372 ms P-R-T Axes : 035 -49 004 degrees QTc Int : 426 ms Normal sinus rhythm Left axis deviation Low voltage QRS Nonspecific ST abnormality Abnormal ECG Confirmed by MARY MANN, NICK ([id number]), commercial production editor JAMEE WITT ([id number]) on 03/20/2021 2:05:16 PM Referred By: Lyle Mora Confirmed By:NICK HERNANDEZ MD
[2021-03-20 10:50] LABS: Absolute Neutrophil Count 2.6 X10^3/uL (2.0-7.7); Basophil# 0.02 X10^3/uL; Basophil% 0.5 % (0-1); Eosinophil# 0.16 X10^3/uL; Eosinophils% 3.7 % (0-5); Hematocrit 38.5 % (37-47); Hemoglobin 11.8 g/dL (12.0-15.0); Lymphocyte % 27.9 % (19-41); Mean Corp Hgb Conc 30.6 g/dL (32-36); Mean Corpuscular Hgb 26.2 pg (27.0-32.0); Mean Corpuscular Volume 85.4 fL (81-99); Mean Platelet Vol. 10.5 fl (6.2-12.0); Monocyte# 0.32 X10^3/uL; Monocyte% 7.4 % (0-10); NRBC Flagged by Analyzer 0 % (0-5); Neutrophil # 2.58 X10^3/uL (2.7-7.7); Platelet Count 202 K/mm3 (150-450); RBC Distribution Width CV 15.2 % (11.6-14.6); RBC Distribution Width SD 46.2 fl (35.1-43.9); Red Blood Count 4.51 M/mm3 (4.2-5.4); White Blood Count 4.3 K/mm3 (4.4-11.0)
[2021-03-20 11:21] LABS: Magnesium 2.4 mg/dL (1.6-2.6)
[2021-03-20 11:30] LABS: Anion Gap 6 (5-15); BUN 8 mg/dL (7-18); BUN/Creat Ratio 10.2 RATIO (10-20); Calcium,Total 9.7 mg/dL (8.5-10.1); Chloride 106 mmol/L (98-107); Creatinine, Serum 0.78 mg/dL (0.55-1.02); EST Glomerular Filtration Rate 76 mL/min (>60); Est Glom Filt Rate - Afr Amer 92 mL/min (>60); Glucose 75 mg/dL (74-106); Potassium 3.8 mmol/L (3.5-5.1); Sodium Level 139 mmol/L (136-145)
--- NOTE | 2021-05-29 12:17 | RAD_ITS ---
STUDY: X-RAY CHEST REASON FOR EXAM: Female, 75 years old. Preop for pelvic surgery TECHNIQUE: PA and lateral views of the chest. COMPARISON: None. FINDINGS: The lungs are mildly hyperexpanded with chronic interstitial changes but no superimposed process. There is no demonstrated pleural abnormality. Normal size heart. Normal mediastinum and keena. Normal visualized pulmonary arteries. There is atherosclerotic calcification of the aortic arch with tortuosity. There are diffuse degenerative changes of the visualized thoracic spine. Normal visualized ribs, clavicles, and shoulders. There is no demonstrated abnormality of the visualized soft tissue structures of the upper abdomen. RAD/Chest PA and Lateral IMPRESSION: Chronic interstitial changes, no superimposed acute pulmonary process Electronically Signed: Irvin Hill MD at 10:10 EDT ,
[2021-05-29 13:25] LABS: Absolute Lymphocyte Count 1.57 X10^3/uL (0.83-4.51); Basophil# 0.02 X10^3/uL; Basophil% 0.4 % (0-1); Eosinophil# 0.23 X10^3/uL; Eosinophils% 4.5 % (0-5); Hematocrit 39.2 % (37-47); Hemoglobin 12.3 g/dL (12.0-15.0); Lymphocyte # 1.57 X10^3/ul (0.83-4.51); Lymphocyte % 30.5 % (19-41); Mean Corp Hgb Conc 31.4 g/dL (32-36); Mean Corpuscular Hgb 27.2 pg (27.0-32.0); Mean Corpuscular Volume 86.7 fL (81-99); Mean Platelet Vol. 9.7 fl (6.2-12.0); Monocyte# 0.29 X10^3/uL; Monocyte% 5.6 % (0-10); NRBC Flagged by Analyzer 0 % (0-5); Neutrophil # 3.03 X10^3/uL (2.7-7.7); Neutrophil % 58.8 % (47-70); Platelet Count 109 K/mm3 (150-450); RBC Distribution Width CV 15.2 % (11.6-14.6); RBC Distribution Width SD 48.8 fl (35.1-43.9); Red Blood Count 4.52 M/mm3 (4.2-5.4); White Blood Count 5.2 K/mm3 (4.4-11.0)
[2021-05-29 13:59] LABS: Albumin, Serum 3.6 g/dL (3.2-5.0); Anion Gap 3 (5-15); BUN 26 mg/dL (7-18); BUN/Creat Ratio 27.5 RATIO (10-20); Calcium,Total 9.8 mg/dL (8.5-10.1); Chloride 106 mmol/L (98-107); Creatinine, Serum 0.94 mg/dL (0.55-1.02); EST Glomerular Filtration Rate 62 mL/min (>60); Est Glom Filt Rate - Afr Amer 75 mL/min (>60); Glucose 78 mg/dL (74-106); Potassium 4.4 mmol/L (3.5-5.1); Sodium Level 139 mmol/L (136-145)
--- NOTE | 2021-05-30 14:34 | HP.PCM_ITS ---
History and Physical History and Physical [facility] Patient Name: Veronica Bazzi : 1945 From: ELYSE DAVIS PA-C DATE OF SURGERY: 06/14/2021 SCHEDULED PROCEDURE: left total hip arthroplasty HISTORY OF PRESENT ILLNESS: Preoperative history and physical exam was performed on May 30, 2021. This is a 75-year-old female who was initially scheduled to undergo left total hip arthroplasty in March 2021. However her preoperative lab work came back normal with low nutritional value. Patient was placed on protein shakes twice daily. Surgery was rescheduled. Patient is continued to complain of left hip pain. She has had ongoing pain for years but has always been increased over the past 1 year. Patient still gets pain constantly going up and down stairs and walking. She has increased pain with standing. She does get start up pain. She still feels weaker in the left lower leg than the right. She has increased pain getting up from a seated position. Pain awakens her at nighttime. She has fallen secondary to the hip pain. Patient feels unsafe with all activities due to the pain. Patient has tried rest, heat with minimal relief. She has used a cane for ambulatory assistance. Patient has been through clinical manager home care, physical therapy, and home exercises with no relief. She denies previous surgery on the left hip. She has been on oral medications and is currently with pain management currently using methadone and Percocet. We are in contact with the pain management doctor Dr. Mares in which we will manage the pain for the first 6 weeks following surgery. We are to stop the methadone and utilize oxycodone for pain control. We have also obtain surgical clearance from the primary care physician Dr. Contreras. Patient has medical history pertinent for fibromyalgia, thyroid disease, post polio, depression, chronic obstructive pulmonary disease, sleep apnea with use of CPAP, and hypertension. She currently denies any chest pain, shortness of breath, fevers chills or recent infections. After failing conservative measures and discussing treatment options with Dr. Lyle Mora, the patient does wish to proceed with a left total hip arthroplasty. REVIEW OF SYSTEMS: Review Of Systems: Constitutional: Reports anxiety, weight change, but denies anorexia, fever and difficulty sleeping. Cardiovasular: Reports peripheral vascular disease, but denies chest pain, heart murmur and irregular heartbeat. Respiratory: Reports sleep apnea, shortness of breath and wheezing, but denies asthma, cough, pneumonia and tuberculosis. Gastrointestinal: Reports constipation, but denies diarrhea, heartburn, nausea, rectal itching, bloody stools and vomiting. Genitourinary: Denies incontinence. Musculoskeletal: Reports pain, trouble walking and weakness, but denies leg swelling. Skin: Denies Raynaud's, history of shingles and tattoo. Neurological: Reports difficulty with balance and dizziness but denies ambulatory dysfunction, numbness/tingling and tremor. Psychiatric: Reports anxiety, depression and stress, but denies insomnia and mental illness. Hematologic/Lymphatic: Denies anemia, bleeding/bruising tendency and past transfusion. Reviewed and updated. PAST MEDICAL HISTORY: Advance Care Plan: No Advance Directives Effective Date: 01/09/2021 Past Medical History: Medical Problems: Arthritis, Fibromyalgia, Thyroid Disease, Post Polio, Depression, Chronic Obstructive Pulmonary Disease (COPD), Sleep Apnea, High Blood Pressure Accidents: Fracture - BACK FX - 1999 LT ANKLE FX IN [employer] RT Ankle - (05/14/2019) Surgical Hx: Appendectomy - (1966) [facility] Gallbladder - [facility]Z Shoulder Arthroscopy Rt - (12/18/2008) [facility] BY DR. SEGAL RT Foot Reconstruction, LT Foot Reconstruction Anesthesia Complications: None Assistive Devices: Cane, Glasses - READING, Brace Reviewed and updated. SOCIAL HISTORY: Social History: Marital: .Occupation: Homemaker.Work Status: Housewife.Hand Dominance: Right-handed. Personal Habits: Cigarette Use: Former - 2 PACKS/DAY FOR 10 YEARS.Smokeless Tobacco: Never Used Smokeless Tobacco.E-Cigarette Use: Never used.Alcohol: Denies use.Drug Use: Denies Use.Enjoy Exercising: Never Exercises. Reviewed and updated. VITALS: Ht: 62 Wt: 132lb Wt k.875 BMI: 24.1 BP: 126/80 Pulse: 83 Resp: 16 T: 97.9 T: 36.6C Pain Level: 3 ALLERGIES: Vicodin - Sick Demerol - Goofy MEDICATIONS: Ferrous Sulfate 325 (65 Fe) MG take 1 tablet by mouth twice a day, Folic Acid 1 mg 1 by mouth every day, Percocet 5-325 mg 1-2 po q6H PRN PAIN, Neurontin 300 mg 1 po BID, Lopressor 50 mg 1/2-1 tab PO daily, Calcium 400mg 1 tab PO tid, Trazodone HCL 150 mg 1 tab PO qhs, Zoloft 100 mg 2 tabs PO daily, Methadone HCL 5 mg 1po q12hrs prn, Senokot 8.6 mg 1 by mouth once daily, Aspirin Adult Low D ose 81 mg by mouth 1 a day, Trelegy Ellipta 100-62.5-25 mcg/Inh once A day, Prilosec OTC 20 mg 1 by mouth every day, Ventolin HFA 108 (90 Base) mcg/Act as needed, Levothyroxine Sodium 25 mcg 1po qday, Daily Vitamin 1po qday, Liothyronine Sodium 25 mcg, Diclofenac Potassium 25 mg 3 daily, Atorvastatin Calcium 10 mg 1 by mouth every day, Flonase Allergy Relief 50 mcg/Act 0.5mcg, Montelukast Sodium 10 mg 1 by mouth every day, Ipratropium [place] 0.06 % twice a day, Bupropion Hydrochloride ER (XL) 300 mg 1po qday, Alprazolam 0.5 mg 1 by mouth every day PRE-OP EXAM: General appearance:NORMAL Other: Eyes: Conjunctivae and lids: NORMAL Pupils: ERR Ears, Nose, Mouth, and Throat: NORMAL Other: Inspection of lips, teeth and gums: NORMAL Other: Neck: Examination of neck: no masses noted. Respiratory: Assessment of respiratory effort: NORMAL Other: Auscultation of lungs: clear to auscultation no wheezes, rhonchi or rales. Cardiovascular: Auscultation of heart: regular rate and rhythm, no murmurs, gallops or rubs. PHYSICAL EXAMINATION: Patient currently uses and I cane. She does walk with an antalgic gait. Patient has foot drop on her right lower extremity. The left hip continues to have tenderness over the lateral aspect of the greater trochanteric region. She has increased pain with any range of motion of the left hip. Flexion approximately 80, internal rotation 35, external rotation 35 with pain. 4/5 hip strength secondary to pain. Left leg is 4 mm shorter than the right. Sensation intact to light touch. IMAGING STUDIES: Previous x-rays of the left hip reveal joint space narrowing, subchondral sclerosis, osteophyte formation consistent with severe stage IV osteoarthritis with bony erosions of the femoral head and acetabulum. Acetabulum shows evidence of dysplastic nature where shallow acetabulum likely related to her polio. IMPRESSION: 1. Severe left hip osteoarthritis 2. Fibromyalgia 3. Hypertension 4. Thyroid disease 5. Depression 6. Chronic obstructive pulmonary disease 7. Sleep apnea 8. Postpolio PLAN: Dr. Lyle Mora did discuss and review with the patient all treatment options including surgical versus nonsurgical options. Patient does wish to proceed with the above-stated procedure. Potential risks, benefits, and complications of the procedure were discussed in detail including but not limited to , infection, nerve and blood vessel damage, persistent pain, numbness, tingling, paresthesias, blood clot, pulmonary embolism, and requirement for possible further surgery. The patient expressed full understanding and has no further questions for the doctor. Patient does agree to proceed with the above-stated procedure and has signed the surgery consent form. We discussed the current risks associated with COVID 19. This does include the risk of exposure while in the hospital. Patient was reassured local hospitals have low infection rates and are taking all necessary precautions to avoid exposure to patients. In addition, we discussed strategies that can be used to help limit exposure including those that limit the patient's time in the hospital. Also using strategies to limit the patient's need for continued inpatient services after being discharged from the hospital. Patient was notified that we will need to comply with any screening or testing the hospital wishes to perform or that surgery may be delayed for any positive results. This dictation was created using voice recognition software. Phonetic and/or grammatical errors may exist. ___ I have re-examined the patient. There are no clinical changes since date of exam. ___ See progress notes for changes. ___ Dictated on admission Date: Time: Signature:
[2021-06-14] VITALS (24 sets, daily range): BP systolic 83–143; BP diastolic 46–82; PULSE 70–107; RESP 12–18; TEMP 36.4–37.2; O2SAT 92–100; BMI 24.2
[2021-06-14 06:11] LABS: Bedside Glucose 101 mg/dL (74-106)
[2021-06-14] MEDS: Acetaminophen 500 MG Tablet 1000 MG PO ×3 (06:21→22:02)
[2021-06-14] MEDS: Gabapentin 600 MG Tablet PO (06:21)
[2021-06-14] MEDS: Celecoxib 200 MG Capsule 400 MG PO (06:21)
[2021-06-14] MEDS: Lactated Ringers 1,000 ML 999 ML IV ×2 (06:22→10:10)
--- NOTE | 2021-06-14 06:41 | PCM.OPRPT ---
Report of Operation Date of Procedure: 06/14/21 Pre-Operative Diagnosis: Left hip primary osteoarthritis Post-Operative Diagnosis: Left hip primary osteoarthritis Surgery/Procedure Performed:: Left minimally invasive direct anterior hip replacement Description of Surgical Findings:: Stable hip with equal leg lengths Surgeon: Lyle Mora heat treating bluer: Shane Garcia Type of Anesthesia: Spinal Anesthesiologist: Altaf Smyth Special Medications: 2 g Ancef, 1 g TXA at incision, 1 g TXA closure, 10 mg Decadron, joint cocktail (5 mg Duramorph, 30 mL of 0.5% Ropivicaine, 1000 units of epinephrine, 30 mg of Toradol) Specimen's removed: Bony cuts Estimated Blood Loss (mL): 200 Fluids Replaced: 700 mL crystalloid Description of Procedure: Components used: 1. Accolade 2 Ruthie femoral stem size 3 127? 2. Ruthie trident 2 acetabular shell size 54 mm 3. [place] X3 polyethylene 42E 4. [place] Biolox delta 38mm, 0mm femoral head 5. [place] MDM metal liner alpha code E Brief history operative indications: 75 yo F who failed conservative measures for their hip osteoarthritis. X-rays were consistent with osteoarthritis including joint space narrowing, osteophyte formation and subchondral cysts. Total hip replacement was discussed with the patient with risks and benefits including but not limited to blood loss, DVTs, PEs, neurovascular damage, dislocation, general risks of anesthesia including loss of life. Patient demonstrated an understanding medical clearance is obtained the patient was consented for surgery. Patient had atypical asymmetric left hip morphology. Preoperatively she was examined and noted to have a leg length discrepancy. Procedure: On the date of procedure the patient's L hip was marked in the preoperative area. Patient was then taken back to the operating room where anesthesia assumed control of the C-spine and airway and administered anesthetic. Patient was transferred to the operating table and placed in the supine position. The hips were placed at the break of the bed and a sacral bump was placed. L The lower extremity was then prepped out in a sterile fashion using chlorhexidine while the surgeon scrubbed. The PA was vital in the positioning of the patient. Upon reentering the room the left lower extremity was draped in the standard orthopedic fashion and the incision was marked. A timeout was called and everyone agreed upon the side, the site, the procedure be performed, antibody given, and patient's identity. At this time incision was made through skin, subcutaneous tissue, and fat down to fascia. The fascia was then incised and the TFL was retracted laterally. A retractor was placed on the lateral border of the femoral neck. Attention was directed to the inferior portion of the approach and all crossing vessels were identified and appropriately coagulated. A retractor was then placed on the medial portion of the femoral neck. The anterior capsule was then cleared of all soft tissue and then H shaped capsulotomy was made. The retractors were then placed inside the capsule. The femoral neck was identified and a cleanup cut was made. At this time a power corkscrew was used to remove the femoral head. Attention was then turned toward the acetabulum where the soft tissues were appropriately retracted and the acetabulum was sequentially reamed to 54 mm. A 54 mm cup was then selected and impacted into place. 3 SCREWS WERE PLACED IN SAFE ZONE Acetabular liner was impacted into place and locking mechanism was verified. The position of the acetabular cup was then verified under live fluoroscopy. Attention was then turned to the femur. Soft tissue releases on the medial and lateral femoral neck were appropriately done, the leg was externally rotated and lateralized. A Carter retractor was placed medially and proximally to the greater trochanter this allowed appropriate visualization and exposure of the femoral canal. Rongeour was then used to remove excess lateral bone. A canal finder and entry broach were used to open the proximal canal. Once we verified we were down the femoral canal we subsequently broached up to a size 3 femur. The appropriate neck was placed in the previously selected head was trialed with a 0 mm neck. Traction was pulled and the hip was reduced with internal rotation. Once it was appropriately reduced and stability was checked. There was minimal shuck, equal leg lengths and appropriate stability with hyperextension and external rotation as well as with 90? flexion and internal rotation. Fluoroscopy was then also used to verify the position of the components and leg lengths using the PRERESECTION FLUORO OF THE OPERATIVE SIDE for comparison. The trial components were then dislocated the proximal femur was again exposed and the components were removed from the wound. The final components were verified and opened. The wound was copiously irrigated out with normal saline. The acetabulum was checked for any residual debris. The final components were placed and impacted. Traction and internal rotation were again used to reduce the hip. After adequate reduction the hip remained stable with appropriate leg lengths. The final components were once again checked with live fluoroscopy and were found to be satisfactory. The wound was then copiously irrigated with normal saline once more, and hemostasis was obtained. Closure was then done using #1 Vicryl runner to close the fascia. A 2-0 vicryl interuppted sutures were used to close the subcutaneous skin. A 3-0 Monocryl and Steri-Strips were used for final skin closure. A Silverlon dressing was placed. Patient was awakened by anesthesia and transferred to the [facility]. Patient was then transferred to the PACU for recovery. During the course of the procedure the physician guide alpine (PE) played a vital role. Their intimate knowledge of my steps in the procedure aided in safe and expedient completion of the procedure. The PE played a vital rolls in positioning particularly in obtaining the appropriate positioning of the sacral bump. The PE was also vital in the retraction of soft tissues during the exposure and especially the femoral work as this is a vital part of the procedure to prevent complications and fractures. The PE was also vital and protecting soft tissues during times of bony cuts and reaming. He also played a vital role in closure with my direct supervision. The PE was also important during reduction and dislocation of the joint and trials intraoperatively. Postoperative plan: Patient will get 24 hours postop antibiotics. Patient will get in-house physical therapy and will be weight-bear as tolerated. Patient will follow up in office in 2 weeks for a wound check and x-rays. Aspirin 81 mg twice daily. Complications No intraoperative complications Admit VTE Documentation VTE Present on Admission: No VTE Mechan Device Prophylaxis: SCD's and Thigh High DANNY Hose VTE Pharm Prophylaxis ordered?: Yes
[2021-06-14] MEDS: Cefazolin 2 GM in 0.9% Normal Saline 100 ML IV (07:22)
--- NOTE | 2021-06-14 07:30 | RAD_ITS ---
STUDY: X-RAY - PELVIS AND LEFT HIP REASON FOR EXAM: Female, 75 years old. PAIN TECHNIQUE: 1 views of the pelvis and hip. COMPARISON: 05/14/2019 FINDINGS: 14 seconds of fluoroscopy of the left hip was utilized (in the operating room during hip arthroplasty in 8 images are submitted for interpretation.. RAD/Hip 1 view with Pelvis IMPRESSION: Fluoroscopy during left hip arthroplasty. Electronically Signed: Hunter Dai MD at 17:07 EDT ,
--- NOTE | 2021-06-14 07:30 | HIP_PTH ---
PATIENT: MARIUM ADAN LOC: MS3 U#:[id number] AGE/SX: 75/F ROOM: VT317 RE06/14/[address]: Dr. Lyle Mora MD : 1945 BED: 1 DIS: 06/15/2021 SPEC #: [id number] RECD: 06/14/21 11:32 STATUS: CHAS BOWIE #: [id number] JORDANA: 06/14/21 07:[address]: Lyle Mora DEPT: SURGICAL PATHOLOGY RECD BY: Felicita Lux ENTERED: 06/14/21 12:27 SP TYPE: TOTAL HIP OTHR DR: Dr. Norma Contreras, DO Tissues: Hip, NOS Procedures: Decalcification bone/plaque Surgery Specimen Level IV HEADER OPERATION: ERAS, direct anterior total hip arthroplasty PRE-OP DIAGNOSIS: Left hip osteoarthritis TISSUE SUBMITTED: Left femoral head MICROSCOPIC DIAGNOSIS Left femoral head, total hip resection: Severe degenerative joint disease. AM:aida 06/22/2021 MICROSCOPIC DESCRIPTION Slides are reviewed. GROSS DESCRIPTION Received is one container labeled with the patient's name and designated left femoral head. The specimen consists of a talbert femoral head measuring 4.5 x 5 x 4 cm. The articular surface displays prominent osteophyte formation and bone erosion. Also present in the container is a detached piece of bone consistent with portion of femoral neck measuring 3 x 1.5 x 1 cm. Also present in the container are a few detached fragments of bone measuring in aggregate 3 x 1.5 x 1 cm. The soft tissue predominantly consists of bone reaming measuring in aggregate 9 x 8 x 2 cm. Manager Recruiting sections are submitted in two cassettes as follows: 1 ? bone reamings, 2 ? femoral head after decalcification. / SJ:aida 06/14/2021 TC:5 CPT: 62871, 63252
[2021-06-14] MEDS: TXA 1000mg in NS100 100ml (IVPB at Incision) 660 MG IV (07:32)
[2021-06-14] MEDS: dexAMETHasone 10 MG/ML Vial IV (07:50)
[2021-06-14] MEDS: TXA 1000mg in NS100 100ml (IVPB at Closure) 660 MG IV (09:05)
--- NOTE | 2021-06-14 09:51 | RAD_ITS ---
STUDY: X-RAY - PELVIS AND LEFT HIP REASON FOR EXAM: Female, 75 years old. Post Op -- AP both hips on single jesús/lateral of op hip PACU TECHNIQUE: 2 views of the pelvis and hip. COMPARISON: None. FINDINGS: The patient is status post left total hip replacement. There is good alignment. Postoperative soft tissue changes. RAD/Hip Min 2 Views (Portable) IMPRESSION: Status post left total hip replacement. There is good alignment. Postoperative soft tissue changes. Electronically Signed: Dave Palma MD at 11:27 EDT ,
[2021-06-14] MEDS: Lactated Ringers 1,000 ML 125 ML IV (11:05)
--- NOTE | 2021-06-14 14:34 | PN.HOSP_ITS ---
Documented by User: Cortney Valenzuela NP, CONTRACT TECHNICAL WRITER-C 06/14/21 14:40 Subjective Subjective Patient seen and examined. Underwent left hip replacement secondary to primary osteoarthritis. Hospitalist services consulted for medical management. Patient denies significant pain. Denies other symptoms or complaints. Objective Data Objective Data Vital Signs: Vital Signs Temp Pulse Resp BP Pulse Ox 97.7 F L 80 18 102/82 H 98 06/14/21 13:40 06/14/21 13:40 06/14/21 13:40 06/14/21 13:40 06/14/21 13:40 Oxygen Flow Rate (L/min) 4 Oxygen Delivery Method Room Air Weight: 132 lb 4.438 oz Body Mass Index (BMI) 24.2 Intake & Output: Intake and Output for Last 24 Hours 06/12/21 06/13/21 06/14/21 23:59 23:59 23:59 Intake Total 3233.5 / 3233.5 Balance 3233.5 / 3233.5 Lab / Micro Data Result Diagrams: 05/29/21 12:05 05/29/21 12:05 Labs: Laboratory Results - last 24 hr 06/14/21 06:04: POC Glucose 101 Micro: Microbiology 06/13/21 12:36 Interface Orders SARS-CoV-2 Antigen (Rapid) - Final 05/29/21 12:05 Nasal Secretion Nasal Screen MRSA/MSSA - Final 03/20/21 09:49 Swab (Method) Nasal Screen MRSA/MSSA - Final 03/20/21 10:36 Interface Orders SARS-CoV-2 Antigen (Rapid) - Final Radiography Diagnostic Testing: Radiology Impression Hip X-Ray 06/14/21 09:51 IMPRESSION: Status post left total hip replacement. There is good alignment. Postoperative soft tissue changes. Electronically Signed: Dave Palma MD at 11:27 EDT , Physical Exam Const alert, oriented x3 and no apparent distress Orientation / Consciousness: awake, oriented to person, oriented to place and oriented to time HEENT normocephalic and moist oral mucous membranes Eyes PERRL, EOMs intact bilaterally and conjunctivae normal Neck no lymphadenopathy Resp normal respiratory effort and clear to auscultation bilaterally Cardio regular rate, regular rhythm and no murmurs Peripheral Pulses: pulses 2+ throughout GI normal to inspection, nondistended, normoactive bowel sounds, non-tender and non-distended Extremity normal to inspection Skin no rashes or lesions noted Skin Narrative: Postop dressing intact Lesions: no lesions Rashes: no rashes Trauma: no lacerations or abrasions Neuro CN's II-XII intact bilaterally, no focal motor deficits, no sensory deficits noted and deep tendon reflexes 2+ bilaterally Psych mental status grossly normal and affect normal Assessment & Plan Assessment/Plan (1) Hip osteoarthritis: PLAN: 1. Left hip primary osteoarthritis status post left anterior hip replacement-management per orthopedic medicine. PT/OT. As needed pain regimen. 2. Chronic COPD-no exacerbation. As needed albuterol aerosol. 3. ALETHA-continue PAP regimen. 4. Hypertension-continue metoprolol 5. Arthritis/fibromyalgia-on methadone, gabapentin. 6. Anxiety/depression-on sertraline, bupropion, as needed alprazolam. 7. Hyperlipidemia-continue statin. 8. GERD-continue PPI. DVT prophylaxis-aspirin twice daily per surgery This patient was seen by ARIANE Garcia under the supervision of Dr. Howard. Time spent examining patient, reviewing data and subsequent management of care: 12 Minutes Documented by User: Dr. Khai Howard MD 06/14/21 15:27 Objective Data Lab / Micro Data Result Diagrams: 05/29/21 12:05 05/29/21 12:05 Charges/Coding Addendum Addendum: Dr. Howard: I personally reviewed the chart and examined the patient, and agree with the above findings. 75-year-old female presents to the hospital for an elective left hip replacement secondary to osteoarthritis. She is doing well, pain is controlled. Denies any changes to her medications or medical history recently. Can continue with her home medications at this time and monitor renal function. Clinical time spent in all aspects of patient care: 14 minutes Visit Charges OBSV E&M: 67129 Subsequent observation care L2
[2021-06-14] MEDS: Ipratropium Bromide 0.06% NASAL SPRAY 1 SPRAY NASAL ×2 (14:55→22:00)
[2021-06-14] MEDS: Cefazolin 1 GM/50 ML BAG IV (15:00)
[2021-06-14] MEDS: oxyCODONE 5 MG Tablet PO (17:34)
[2021-06-14] MEDS: Ensure Surgery 237 ML LIQUID PO (17:34)
[2021-06-14] MEDS: Aspirin 81 MG TAB.CHEW PO (17:34)
[2021-06-14] MEDS: Budesonide Respules 0.5 MG/2 ML AMPUL.NEB. INHALATION (19:35)
[2021-06-14] MEDS: Ipratropium/Albuterol Sulfate 3 ML AMPUL.NEB INHALATION (19:35)
[2021-06-14] MEDS: Morphine 4 MG/ML Syringe IV (19:53)
[2021-06-14] MEDS: Sertraline 100 MG Tablet 200 MG PO (22:02)
[2021-06-14] MEDS: Senna/Docusate Sodium 1 Tablet 2 TABLET PO (22:02)
[2021-06-14] MEDS: traZODone 100 MG Tablet PO (22:02)
[2021-06-14] MEDS: Gabapentin 300 MG Capsule PO (22:02)
[2021-06-14] MEDS: Atorvastatin Calcium 10 MG Tablet PO (22:04)
[2021-06-15] MEDS: Cefazolin 1 GM/50 ML BAG IV (01:16)
[2021-06-15 01:28] VITALS: BP 100/55; PULSE 95; RESP 18; TEMP 36.5; O2SAT 97
[2021-06-15] MEDS: oxyCODONE 5 MG Tablet PO ×2 (04:24→08:38)
[2021-06-15 04:30] VITALS: BP 119/64; PULSE 65; RESP 18; TEMP 36.7; O2SAT 97
[2021-06-15 06:10] LABS: Hematocrit 25.3 % (37-47); Hemoglobin 8.5 g/dL (12.0-15.0); Mean Corp Hgb Conc 33.6 g/dL (32-36); Mean Corpuscular Hgb 28.5 pg (27.0-32.0); Mean Corpuscular Volume 84.9 fL (81-99); Mean Platelet Vol. 10.3 fl (6.2-12.0); POSITIVE COUNT YES; Platelet Count 75 K/mm3 (150-450); RBC Distribution Width CV 14.9 % (11.6-14.6); Red Blood Count 2.98 M/mm3 (4.2-5.4); White Blood Count 5.6 K/mm3 (4.4-11.0)
[2021-06-15 06:11] LABS: Scan Indicated on CBC? Y/N YES- FLAGS NOTED
[2021-06-15] MEDS: Ipratropium Bromide 0.06% NASAL SPRAY 1 SPRAY NASAL (06:18)
[2021-06-15] MEDS: Acetaminophen 500 MG Tablet 1000 MG PO ×2 (06:19→14:26)
[2021-06-15 06:34] LABS: Anion Gap 2 (5-15); BUN 26 mg/dL (7-18); BUN/Creat Ratio 32.2 RATIO (10-20); Calcium,Total 8.7 mg/dL (8.5-10.1); Chloride 111 mmol/L (98-107); Creatinine, Serum 0.81 mg/dL (0.55-1.02); EST Glomerular Filtration Rate 74 mL/min (>60); Est Glom Filt Rate - Afr Amer 89 mL/min (>60); Estimated Creatinine Clearance 48.92 ml/min; Glucose 114 mg/dL (74-106); Potassium 4.6 mmol/L (3.5-5.1); Sodium Level 141 mmol/L (136-145)
[2021-06-15 06:35] LABS: Differential Comment SCANNED
[2021-06-15] MEDS: Ipratropium/Albuterol Sulfate 3 ML AMPUL.NEB INHALATION ×2 (07:19→14:20)
[2021-06-15 07:24] VITALS: PULSE 88; RESP 18; O2SAT 91
[2021-06-15] MEDS: Budesonide Respules 0.5 MG/2 ML AMPUL.NEB. INHALATION (07:29)
[2021-06-15] MEDS: Ensure Surgery 237 ML LIQUID PO ×2 (08:01→11:54)
[2021-06-15] MEDS: Aspirin 81 MG TAB.CHEW PO (08:01)
[2021-06-15] MEDS: Calcium Carbonate 500 MG Tablet 1000 MG PO (08:01)
[2021-06-15] MEDS: Famotidine 20 MG Tablet PO (08:02)
[2021-06-15] MEDS: Pantoprazole Sodium 20 MG Tablet PO (08:03)
[2021-06-15] MEDS: Cholecalciferol (VIT D3) 25 MCG TABLET (1,000 UNITS) PO (08:04)
[2021-06-15] MEDS: Senna/Docusate Sodium 1 Tablet 2 TABLET PO (08:04)
[2021-06-15] MEDS: buPROPion (XL) 300 MG TABLET.XL PO (08:04)
[2021-06-15] MEDS: Diclofenac 75 MG Tablet PO (08:04)
[2021-06-15] MEDS: Montelukast 10 MG Tablet PO (08:05)
[2021-06-15 08:11] VITALS: BP 107/96; PULSE 96; RESP 16; TEMP 36.4; O2SAT 98
[2021-06-15 08:37] VITALS: BP 107/96; PULSE 96
[2021-06-15] MEDS: Gabapentin 300 MG Capsule PO (08:37)
[2021-06-15] MEDS: Fluticasone 0.05% 1 SPRAY NASAL.SRY NASAL (08:37)
[2021-06-15] MEDS: Metoprolol Tartrate 25 MG Tablet PO (08:37)
--- NOTE | 2021-06-15 10:22 | PN.ORTHO_ITS ---
Subjective Subjective The patient was sitting in bedside chair upon examination. Patient denies any chest pain, shortness of breath, dizziness, lightheadedness, nausea or vomiting, or calf pain. Pain is controlled on medications. No adverse overnight events. Overall patient is doing well. She just had physical therapy and tolerated this well. Patient also reports she has her at home. Plan is for discharge home with outpatient physical therapy to begin on June 19, 2021. Objective Data Objective Data Vital Signs: Vital Signs Temp Pulse Resp BP Pulse Ox 97.6 F L 96 16 107/96 H 98 06/15/21 08:11 06/15/21 08:37 06/15/21 08:11 06/15/21 08:37 06/15/21 08:11 Oxygen Flow Rate (L/min) 4 Oxygen Delivery Method Room Air Weight: 60 kg Body Mass Index (BMI) 24.2 Intake & Output: Intake and Output for Last 24 Hours 06/13/21 06/14/21 06/15/21 23:59 23:59 23:59 Intake Total 4283.5 / 4283.5 50 / 50 Balance 4283.5 / 4283.5 50 / 50 Lab / Micro Data Result Diagrams: 06/15/21 05:07 06/15/21 05:07 Labs: Laboratory Results - last 24 hr 06/15/21 05:07: WBC 5.6, RBC 2.98 L, Hgb 8.5 L, Hct 25.3 L, MCV 84.9, MCH 28.5, MCHC 33.6, RDW Std Deviation 47.0 H, RDW Coeff of Shahnaz 14.9 H, Plt Count 75 L, MPV 10.3, Differential Comment SCANNED 06/15/21 05:07: Sodium 141, Potassium 4.6, Chloride 111 H, Carbon Dioxide 28.0, Anion Gap 2 L, BUN 26 H, Creatinine 0.81, Estim Creat Clear Calc 48.92, Est GFR (MDRD) Af Amer 89, Est GFR (MDRD) Non-Af 74, BUN/Creatinine Ratio 32.2 H, Glucose 114 H, Calcium 8.7 Micro: Microbiology 06/13/21 12:36 Interface Orders SARS-CoV-2 Antigen (Rapid) - Final 05/29/21 12:05 Nasal Secretion Nasal Screen MRSA/MSSA - Final 03/20/21 09:49 Swab (Method) Nasal Screen MRSA/MSSA - Final 03/20/21 10:36 Interface Orders SARS-CoV-2 Antigen (Rapid) - Final Radiography Diagnostic Testing: Radiology Impression Hip/Pelvis X-Ray 06/14/21 07:30 IMPRESSION: Fluoroscopy during left hip arthroplasty. Electronically Signed: Hunter Dai MD at 17:07 EDT , Hip X-Ray 06/14/21 09:51 IMPRESSION: Status post left total hip replacement. There is good alignment. Postoperative soft tissue changes. Electronically Signed: Dave Palma MD at 11:27 EDT , Physical Exam Narrative Vital signs stable and afebrile. SCDs and DANNY hose are on bilaterally Patient's left thigh is soft and supple Patient is able to plantarflex and dorsiflex actively. Sensation is intact to light touch to saphenous, sural, superficial and deep peroneal, and tibial distribution. Dressing is clean dry and intact. Negative Homans bilaterally, negative signs and symptoms of DVT. Const alert, oriented x3 and no apparent distress Assessment & Plan Assessment/Plan (1) S/P total left hip arthroplasty: PLAN: 1. S/P direct anterior left total hip arthroplasty POD #1 2. Continue Pain Medications: Tylenol and oxycodone. Preoperatively we did discuss case with her pain management doctor. Pain management is going to manage all of her pain medications postoperatively. This was discussed with the patient and she was instructed to make sure she is in contact with them with regards to appropriate medications and prescriptions. She reports that she has already discussed this with her pain management doctor. 3. DVT Prophylaxis: Take 81 mg aspirin twice daily for 4 weeks postoperatively for DVT prophylaxis. Patient reports no previous history of DVT in the past. 4. PT/OT: Weightbearing as tolerated with walker 5. H & H: 8.5/25.3, asymptomatic. Postoperative anemia secondary to acute blood loss and dilutional from surgery without any intra operative complications. Case was discussed with the hospitalist and we are repeating a CBC later today. As long as patient is stable plan will be for discharge home. Medicine is okay with discharge as long as there is no further drop in hemoglobin. Patient already takes ferrous sulfate as a home medication. 6. Continue postoperative medical management per medicine 7. Encouraged Incentive Spirometry 8. Disposition: Plan will be for possible discharge home today as long as nick pride's hemoglobin remained stable. Clinically she is asymptomatic. Patient will continue with her ferrous sulfate at home. I did recommend follow-up with her primary care physician in 1 to 2 weeks for repeat lab work. She voiced understanding. I did discuss case with case management and they will assist with appropriate appointment. No prescriptions are required as patient already has aspirin and senna at home. Pain management is managing her postoperative pain medications. She has outpatient physical therapy established. Patient will contact her office with any complications upon discharge.. I have reviewed the [place] Automated Rx Reporting System (OARRS) report for this patient for refill pattern and other prescriber involvement as part of the appropriate surveillance for the provision of acute and chronic controlled medications. The report was requested and reviewed on the date of this entry and was considered in the prescribing process.
--- NOTE | 2021-06-15 10:30 | PCM.DC ---
Discharge Instructions Diet Discharge Diet: No restrictions Activity Discharge Activity: May Not Drive (while taking narcotic pain medications.) May shower in (days): 1 (only if incision is dry and without drainage. Do NOT soak/submerge in tub/pool/mar/stream/hot tub.)) Ice area for (Minutes): 20 (Every 1-2 hours while awake[address] place barrier between ice and skin.) Weight Bearing Status: Weight bearing as tolerated (With walker) Keep extremity elevated above heart level: Operative Extremity Dressing / Incision Call your doctor if your incision/area has: Continuous Slow Oozing, Sudden Increased Bleeding, Increased Pain/ Swelling, Increased Redness and Foul Smelling Discharge Call your doctor if you observe: Fever of 101 or Higher, Shortness of breath, Chest pain, Calf discomfort and Uncontrolled pain Remove Dressing in: 4 days (Okay to remove on June 19, 2021) Additional Dressing/Incision Instructions:: Follow [facility] Post-op Instructions. Once postoperative dressing has been removed, only use gentle soap and water over the incision. Do not use any ointments, Neosporin, salves, alcohol pads over the incision for 6 weeks postoperatively. Do not submerge underwater for 6 weeks postoperatively. Continue with DANNY hose/elastic stockings for 2 weeks postoperatively. May remove at nighttime but needs to be placed back on the leg during the day. Do NOT use alcohol with narcotic pain medication. Do NOT make important decisions while taking narcotic medication. If you have problems with taking your medication (rash, itching, nausea, etc.) call the office at once. Follow Up Care Test Results: Test results from this visit will be discussed in further detail at your follow-up appointment, if applicable. Discharge Plan Admission Admit Date/Time: 06/14/21 06:38 Attending Provider: Lyle Mora Primary Care Provider: Norma Contreras Consulting Providers: Khai Howard Discharge Orders/Prescriptions Prescriptions: New sennosides-docusate sodium [Stool Softener-Stimulant Laxat] 8.6-50 mg Tablet 2 tab PO BID Qty: 0 RF: 0 aspirin 81 mg Tablet,Chewable 81 mg PO BIDCM 30 Days Qty: 60 RF: 0 Continued sertraline 100 MG tablet 200 mg PO QHS RF: 0 oxycodone-acetaminophen 1 TABLET tablet 1 tab PO Q12H PRN PRN (Reason: Pain) RF: 0 alprazolam 0.5 MG tablet 0.5 mg PO TID PRN PRN (Reason: Anxiety) RF: 0 calcium carbonate 600 MG tablet 1,200 mg PO DAILY RF: 0 omeprazole 10 MG capsule 20 mg PO DAILY RF: 0 trazodone 150 MG tablet 100 mg PO QHS RF: 0 metoprolol tartrate 25 MG tablet 25 mg PO DAILY RF: 0 Gralise 300 MG tablet extended release 24 hr 300 mg PO BID RF: 0 albuterol sulfate 1 INHALER inhaler 1 - 2 puff inhalation Q4H PRN PRN (Reason: Sob &/Or Wheezing) RF: 0 bupropion HCl 300 MG tablet extended release 24 hr 300 mg PO DAILY RF: 0 sennosides [Vegetable Laxative] 8.6 mg Tablet 8.6 mg PO BID PRN (Reason: STOOL SOFTNER) RF: 0 atorvastatin 10 mg tablet 10 mg PO QHS RF: 0 diclofenac sodium 75 mg tablet,delayed release (DR/EC) 75 mg PO BID RF: 0 montelukast 10 mg tablet 10 mg PO DAILY RF: 0 ipratropium bromide 42 mcg (0.06 %) spray,non-aerosol 1 spray INTRANASAL TID RF: 0 methadone 5 mg tablet 5 mg PO BID RF: 0 fluticasone propionate 50 mcg/actuation spray,suspension 1 spray INTRANASAL DAILY RF: 0 ferrous sulfate 325 mg (65 mg iron) Capsule, Extended Release 325 mg PO DAILY RF: 0 cholecalciferol (vitamin D3) [Vitamin D3] 25 mcg (1,000 unit) Capsule 25 mcg PO DAILY RF: 0 Trelegy Ellipta 100-62.5-25 mcg blister with device 1 inh INHALATION DAILY RF: 0 Discontinued aspirin 81 MG tablet,chewable 81 mg PO DAILY@0800 RF: 0 Referrals / Follow Up: Physical,Therapy [Other] - 06/19/21 ([facility]) Norma Contreras DO [Primary Care Provider] - 06/29/21 1:20 pm (JUNE 29, 2021 @ 01:20PM) Shane Garcia PA-C [PHYSICIAN STUDENT SERVICES DEAN] - 06/29/21 3:45 pm Disposition Disposition (needs filled in before D/C Order can be placed): Home, Self Care
--- NOTE | 2021-06-15 10:43 | PCM.PN.HOSP ---
Subjective Subjective She is feeling well today. Denies any complaints. No significant blood loss. Hemoglobin did drop to 8.5 and I discussed this with her and that we will repeat one at about 11:00 to ensure stability. She indicates the plan was to go home later today if she does well with therapy. So far she has been doing well. Objective Data Objective Data Vital Signs: Vital Signs Temp Pulse Resp BP Pulse Ox 97.6 F L 96 16 107/96 H 98 06/15/21 08:11 06/15/21 08:37 06/15/21 08:11 06/15/21 08:37 06/15/21 08:11 Oxygen Flow Rate (L/min) 4 Oxygen Delivery Method Room Air Weight: 60 kg Body Mass Index (BMI) 24.2 Intake & Output: Intake and Output for Last 24 Hours 06/13/21 06/14/21 06/15/21 23:59 23:59 23:59 Intake Total 4283.5 / 4283.5 50 / 50 Balance 4283.5 / 4283.5 50 / 50 Lab / Micro Data Result Diagrams: 06/15/21 05:07 06/15/21 05:07 Labs: Laboratory Results - last 24 hr 06/15/21 05:07: WBC 5.6, RBC 2.98 L, Hgb 8.5 L, Hct 25.3 L, MCV 84.9, MCH 28.5, MCHC 33.6, RDW Std Deviation 47.0 H, RDW Coeff of Shahnaz 14.9 H, Plt Count 75 L, MPV 10.3, Differential Comment SCANNED 06/15/21 05:07: Sodium 141, Potassium 4.6, Chloride 111 H, Carbon Dioxide 28.0, Anion Gap 2 L, BUN 26 H, Creatinine 0.81, Estim Creat Clear Calc 48.92, Est GFR (MDRD) Af Amer 89, Est GFR (MDRD) Non-Af 74, BUN/Creatinine Ratio 32.2 H, Glucose 114 H, Calcium 8.7 Micro: Microbiology 06/13/21 12:36 Interface Orders SARS-CoV-2 Antigen (Rapid) - Final 05/29/21 12:05 Nasal Secretion Nasal Screen MRSA/MSSA - Final 03/20/21 09:49 Swab (Method) Nasal Screen MRSA/MSSA - Final 03/20/21 10:36 Interface Orders SARS-CoV-2 Antigen (Rapid) - Final Radiography Diagnostic Testing: Radiology Impression Hip/Pelvis X-Ray 06/14/21 07:30 IMPRESSION: Fluoroscopy during left hip arthroplasty. Electronically Signed: Hunter Dai MD at 17:07 EDT , Hip X-Ray 06/14/21 09:51 IMPRESSION: Status post left total hip replacement. There is good alignment. Postoperative soft tissue changes. Electronically Signed: Dave Palma MD at 11:27 EDT , Physical Exam Const alert, oriented x3, no apparent distress and average body habitus Constitutional Narrative: Older white female sitting up on the toilet, appears comfortable, therapy at the bedside, patient is nontoxic and appears to be moving quite well, patient observed ambulating in the hallway with a walker Exam Limitations: no limitations HEENT head/scalp atraumatic and moist oral mucous membranes Head and Scalp: normocephalic Resp normal respiratory effort, no retractions, no use of accessory muscles and clear to auscultation bilaterally Auscultation: Negative for crackles, rales, rhonchi or wheezes Cardio regular rate, regular rhythm, S1 normal heart sound, S2 normal heart sound, no murmurs, no rub, no gallops, no clicks and no JVD GI normal to inspection, nondistended, normoactive bowel sounds, soft to palpation, non-tender and non-distended; Negative for hepatosplenomegaly Extremity no clubbing, cyanosis or edema Extremity Narrative: Left hip anterior incision is clean and dry with bandage in place-bandage shows no signs of drainage and area is soft with only mild ecchymosis surrounding Peripheral Pulses: Yes pulses 2+ throughout Neuro oriented x3, moves all extremities and no focal motor deficits Sensorium / Orientation: awake and alert Speech: speech normal Assessment & Plan Assessment/Plan (1) Hip osteoarthritis: (2) S/P total left hip arthroplasty: (3) Acute anemia: PLAN: Left hip osteoarthritis status post left anterior total hip arthroplasty -Postop day 1 -Pain management per primary service -Recommend bowel regimen -Patient is seen by chronic pain and they will help with management of her postoperative pain after discharge -PT/OT -Weightbearing as tolerated -Hip precautions per primary service -If hemoglobin is stable would deem okay for discharge -No current signs of active blood loss Acute anemia -Patient has history of chronic anemia but hemoglobin prior to surgery was 12.3 -Postoperative hemoglobin is 8.5 -Only 200 cc blood loss documented -Signs of acute blood loss -Suspect this may be dilutional from fluids -Repeat hemoglobin at 1100 and if stable okay for discharge History of COPD -Currently stable -On room air -As needed nebs ALETHA -Continue CPAP regimen Hypertension -Continue metoprolol Chronic pain secondary to arthritis/fibromyalgia -Continue methadone -Continue gabapentin -Patient follows with pain management will be assisting with pain management for her knee after discharge Hyperlipidemia -Continue statin GERD -Continue PPI Anxiety/depression -Continue sertraline -Continue bupropion -As needed Xanax DVT prophylaxis -Aspirin 81 mg twice daily per surgery recommendations Charges/Coding Visit Charges Inpatient E&M: 78064 Subs Hosp L2
--- NOTE | 2021-06-15 11:05 | CASEMGMT ---
GABRIELE WILKERSON Face to Face with patient for initial transition planning/care coordination assessment. GABRIELE WILKERSON introduced self and role at [facility]. Patient lying in bed, alert and oriented. Patient willing to participate in assessment and is able to answer all questions appropriately. Care providers, pharmacy, and demographics verified. Patient wishes to discharge home and has outpatient therapy setup at [facility]. Patient states she has no further needs or concerns at this time. CM to follow for discharge planning needs that may arise. PCP: Diane Specialists: Raj Mora; [facility] Preferred Pharmacy: [facility] Insurance: [facility], [place] [id number] Prescription Benefit: yes Living Will/HPOA: none LNOK: Living Arrangements: Patient lives with in a single story home with 3-4 steps and railing to enter the home. Patient states she was independent at home prior to surgery Transportation: DME/HHC: Patient states she has grab bars, shower chair, walker and cpap at home. Patient is setup with [facility] for outpatient therapy starting Saturday. Disposition Plan: Patient to discharge home with outpatient therapy, family support, and follow-up plans in place. Rocio FERNÁNDEZ, RN, CM
--- NOTE | 2021-06-15 11:11 | CASEMGMT ---
GABRIELE CM in to complete ALVAR[employer]O form with patient. RN RHEA explained ALVARADO form to patient, patient voiced understanding. Patient signed ALVARADO form and filed in chart. Patient provided with copy of signed ALVARADO form. Patient had no further questions or concerns at this time.
[2021-06-15 11:22] LABS: Absolute Lymphocyte Count 1.12 X10^3/uL (0.83-4.51); Absolute Neutrophil Count 6.1 X10^3/uL (2.0-7.7); Basophil# 0.01 X10^3/uL; Basophil% 0.1 % (0-1); Eosinophil# 0.01 X10^3/uL; Eosinophils% 0.1 % (0-5); Hematocrit 27.9 % (37-47); Hemoglobin 9.2 g/dL (12.0-15.0); Lymphocyte # 1.12 X10^3/ul (0.83-4.51); Lymphocyte % 14.1 % (19-41); Mean Corpuscular Hgb 28.4 pg (27.0-32.0); Mean Corpuscular Volume 86.1 fL (81-99); Mean Platelet Vol. 10.7 fl (6.2-12.0); Monocyte% 8.8 % (0-10); NRBC Flagged by Analyzer 0 % (0-5); Neutrophil % 76.6 % (47-70); Platelet Count 108 K/mm3 (150-450); RBC Distribution Width CV 15.1 % (11.6-14.6); RBC Distribution Width SD 47.2 fl (35.1-43.9); Red Blood Count 3.24 M/mm3 (4.2-5.4)
[2021-06-15] MEDS: Ferrous Sulfate 325 MG Tablet PO (11:54)
[2021-06-15 14:22] VITALS: PULSE 101; RESP 18
== END 2021-06-15 14:39 | disposition home or self-care (01) ==
LOC: SDC 10:10 → MS3 10:10
PROVIDERS: Anesthesiology; Internal Medicine; Admitting Provider Specialist; PCP Family Medicine; Referring Provider Specialist; Visit Provider Specialist
PROC: (CPT 27284; principal; 2021-06-14 07:05)
DX: M16.12 Unilateral primary osteoarthritis, left hip (principal); J44.9 Chronic obstructive pulmonary disease, unspecified; M79.7 Fibromyalgia; Q65.89 Other specified congenital deformities of hip; F32.A Depression, unspecified; D62 Acute posthemorrhagic anemia; G47.33 Obstructive sleep apnea (adult) (pediatric); I10 Essential (primary) hypertension; E07.9 Disorder of thyroid, unspecified; Z79.899 Other long term (current) drug therapy; Z79.51 Long term (current) use of inhaled steroids; Z79.82 Long term (current) use of aspirin; Z87.891 Personal history of nicotine dependence; Z86.12 Personal history of poliomyelitis; F41.9 Anxiety disorder, unspecified; K21.9 Gastro-esophageal reflux disease without esophagitis
CPT/HCPCS: 27130; 36415; 71046; 73501; 73502; 76000; 80048; 82040; 82962; 83735; 85025; 85027; 87081; 87426; 88305; 88311; 93005; 94640; 96365; 96366; 96375; 97110; 97116; 97162; 97166; 97530; 97535; 99218; 99251; C1776; C9803; J7050; J7120; G0378; G0463; J3475

== ENCOUNTER → 2021-10-20 | Outpatient (CLI) | payer MEDICARE, OTHER, SELFPAY ==
[2021-10-20 11:18] LABS: Absolute Lymphocyte Count 1.45 X10^3/uL (0.83-4.51); Absolute Neutrophil Count 2.4 X10^3/uL (2.0-7.7); Basophil# 0.01 X10^3/uL; Basophil% 0.2 % (0-1); Eosinophil# 0.19 X10^3/uL; Eosinophils% 4.4 % (0-5); Hematocrit 40.9 % (37-47); Hemoglobin 12.6 g/dL (12.0-15.0); Lymphocyte # 1.45 X10^3/ul (0.83-4.51); Lymphocyte % 33.8 % (19-41); Mean Corp Hgb Conc 30.8 g/dL (32-36); Mean Corpuscular Hgb 25.7 pg (27.0-32.0); Mean Corpuscular Volume 83.3 fL (81-99); Mean Platelet Vol. 9.3 fl (6.2-12.0); Monocyte# 0.25 X10^3/uL; Monocyte% 5.8 % (0-10); NRBC Flagged by Analyzer 0 % (0-5); Neutrophil # 2.37 X10^3/uL (2.7-7.7); Neutrophil % 55.3 % (47-70); Platelet Count 135 K/mm3 (150-450); RBC Distribution Width SD 48.5 fl (35.1-43.9); Red Blood Count 4.91 M/mm3 (4.2-5.4); White Blood Count 4.3 K/mm3 (4.4-11.0)
[2021-10-20 11:59] LABS: Free T3 1.4 pg/mL (2.18-3.98); Thyroid Stim Hormone (TSH) 0.05 uIU/mL (0.358-3.74)
[2021-10-24 23:12] LABS: Zinc, Plasma or Serum 77 ug/dL (44-115)
== END | disposition home or self-care (01) ==
LOC: LAB 10:54
PROVIDERS: PCP Family Medicine; Referring Provider Family Medicine; Visit Provider Family Medicine
DX: E03.9 Hypothyroidism, unspecified (principal); D64.9 Anemia, unspecified; E56.9 Vitamin deficiency, unspecified
CPT/HCPCS: 36415; 84439; 84443; 84481; 84630; 85025

== ENCOUNTER → 2021-12-11 | Outpatient (CLI) | payer MEDICARE, OTHER, SELFPAY ==
[2021-12-11 10:46] LABS: Free T3 1.5 pg/mL (2.18-3.98); T4 Free Direct 0.86 ng/dL (0.76-1.46)
== END | disposition home or self-care (01) ==
LOC: LAB 09:40
PROVIDERS: PCP Family Medicine; Referring Provider Family Medicine; Visit Provider Family Medicine
DX: E03.9 Hypothyroidism, unspecified (principal)
CPT/HCPCS: 36415; 84439; 84443; 84481

== ENCOUNTER → 2022-02-06 | Outpatient (CLI) | payer MEDICARE, OTHER, SELFPAY ==
[2022-02-06 12:32] LABS: Absolute Lymphocyte Count 1.44 X10^3/uL (0.83-4.51); Absolute Neutrophil Count 2.6 X10^3/uL (2.0-7.7); Basophil# 0.02 X10^3/uL; Basophil% 0.4 % (0-1); Eosinophil# 0.22 X10^3/uL; Eosinophils% 4.8 % (0-5); Lymphocyte # 1.44 X10^3/ul (0.83-4.51); Lymphocyte % 31.6 % (19-41); Mean Corp Hgb Conc 30.8 g/dL (32-36); Mean Corpuscular Hgb 27.6 pg (27.0-32.0); Mean Corpuscular Volume 89.9 fL (81-99); Mean Platelet Vol. 9.7 fl (6.2-12.0); Monocyte# 0.28 X10^3/uL; Monocyte% 6.2 % (0-10); NRBC Flagged by Analyzer 0 % (0-5); Neutrophil # 2.58 X10^3/uL (2.7-7.7); Neutrophil % 56.8 % (47-70); Platelet Count 133 K/mm3 (150-450); RBC Distribution Width CV 13.7 % (11.6-14.6); Red Blood Count 4.34 M/mm3 (4.2-5.4); White Blood Count 4.6 K/mm3 (4.4-11.0)
[2022-02-06 13:07] LABS: ALB/GLOB Ratio 0.9 RATIO (0.9-2.4); AST(SGOT) 27 U/L (15-37); Alanine Aminotransfer ALT/SGPT 29 U/L (13-56); Albumin, Serum 3.5 g/dL (3.2-5.0); Alkaline Phosphatase 98 U/L (45-117); Anion Gap 6 (5-15); BUN 18 mg/dL (7-18); BUN/Creat Ratio 20.7 RATIO (10-20); Chloride 107 mmol/L (98-107); Cholesterol 124 mg/dL (200); Creatinine, Serum 0.87 mg/dL (0.55-1.02); EST Glomerular Filtration Rate 68 mL/min (>60); Est Glom Filt Rate - Afr Amer 82 mL/min (>60); Free T3 1.2 pg/mL (2.18-3.98); Globulin 4.1 g/dL (2.2-4.2); Glucose 76 mg/dL (74-106); High Density Lipoprotein 36 mg/dL; Potassium 4.2 mmol/L (3.5-5.1); Protein, Total 7.6 g/dL (6.4-8.2); Sodium Level 140 mmol/L (136-145); T4 Free Direct 1.01 ng/dL (0.76-1.46); Thyroid Stim Hormone (TSH) 3.19 uIU/mL (0.358-3.74); Triglycerides 114 mg/dL; Very Low Density Lipoprotein 23 mg/dL (5-40)
== END | disposition home or self-care (01) ==
LOC: LAB 11:46
PROVIDERS: PCP Family Medicine; Visit Provider Family Medicine
DX: E78.5 Hyperlipidemia, unspecified (principal); E03.9 Hypothyroidism, unspecified; Z51.81 Encounter for therapeutic drug level monitoring
CPT/HCPCS: 36415; 80053; 80061; 84439; 84443; 84481; 85025

== ENCOUNTER → 2022-05-16 | Outpatient (CLI) | payer MEDICARE, OTHER, SELFPAY ==
--- NOTE | 2022-05-16 13:43 | EKG12_ITS ---
Test Reason : METHADONE THERAPY Blood Pressure : / mmHG Vent. Rate : 073 BPM Atrial Rate : 073 BPM P-R Int : 162 ms QRS Dur : 074 ms QT Int : 372 ms P-R-T Axes : 052 -46 008 degrees QTc Int : 409 ms Normal sinus rhythm Left anterior fascicular block Abnormal ECG Confirmed by MARY MANN, NICK ([id number]), clinical editor MILI MARTELL ([id number]) on 05/17/2022 9:51:18 AM Referred By: Norma Contreras Confirmed By:NICK HERNANDEZ MD
[2022-05-16 14:22] LABS: Free T3 3.1 pg/mL (2.18-3.98); T4 Free Direct 0.44 ng/dL (0.76-1.46); Thyroid Stim Hormone (TSH) 0.02 uIU/mL (0.358-3.74)
== END | disposition home or self-care (01) ==
PROVIDERS: PCP Family Medicine; Referring Provider Family Medicine; Visit Provider Family Medicine
DX: E03.9 Hypothyroidism, unspecified (principal); E78.5 Hyperlipidemia, unspecified; Z51.81 Encounter for therapeutic drug level monitoring; Z79.899 Other long term (current) drug therapy
CPT/HCPCS: 36415; 84439; 84443; 84481; 93005

== ENCOUNTER → 2022-05-23 | Outpatient (CLI) | payer MEDICARE, OTHER, SELFPAY ==
[2022-05-23 10:20] LABS: Absolute Lymphocyte Count 1.49 X10^3/uL (0.83-4.51); Absolute Neutrophil Count 2.7 X10^3/uL (2.0-7.7); Basophil# 0.02 X10^3/uL; Basophil% 0.4 % (0-1); Eosinophil# 0.29 X10^3/uL; Hematocrit 39.3 % (37-47); Hemoglobin 12.3 g/dL (12.0-15.0); Lymphocyte # 1.49 X10^3/ul (0.83-4.51); Mean Corp Hgb Conc 31.3 g/dL (32-36); Mean Corpuscular Hgb 26.6 pg (27.0-32.0); Mean Corpuscular Volume 85.1 fL (81-99); Mean Platelet Vol. 10.7 fl (6.2-12.0); Monocyte# 0.26 X10^3/uL; Monocyte% 5.4 % (0-10); NRBC Flagged by Analyzer 0 % (0-5); Neutrophil # 2.73 X10^3/uL (2.7-7.7); Platelet Count 119 K/mm3 (150-450); RBC Distribution Width CV 13.9 % (11.6-14.6); RBC Distribution Width SD 42.8 fl (35.1-43.9); Red Blood Count 4.62 M/mm3 (4.2-5.4); White Blood Count 4.8 K/mm3 (4.4-11.0)
[2022-05-23 10:48] LABS: Anion Gap 6 (5-15); BUN 19 mg/dL (7-18); BUN/Creat Ratio 20.9 RATIO (10-20); Calcium,Total 9.6 mg/dL (8.5-10.1); Chloride 106 mmol/L (98-107); Creatinine, Serum 0.91 mg/dL (0.55-1.02); EST Glomerular Filtration Rate 64 mL/min (>60); Est Glom Filt Rate - Afr Amer 78 mL/min (>60); Free T3 2.9 pg/mL (2.18-3.98); Glucose 89 mg/dL (74-106); Potassium 4.8 mmol/L (3.5-5.1); Sodium Level 139 mmol/L (136-145); T4 Free Direct 0.43 ng/dL (0.76-1.46); Thyroid Stim Hormone (TSH) 0.03 uIU/mL (0.358-3.74)
== END | disposition home or self-care (01) ==
LOC: BFHLAB 08:28
PROVIDERS: PCP Family Medicine; Visit Provider Family Medicine
DX: Z51.81 Encounter for therapeutic drug level monitoring (principal); E03.9 Hypothyroidism, unspecified; R42 Dizziness and giddiness
CPT/HCPCS: 36415; 80048; 84439; 84443; 84481; 85025

== ENCOUNTER → 2022-07-23 | Outpatient (CLI) | payer MEDICARE, OTHER, SELFPAY ==
[2022-07-23 16:05] LABS: Free T3 0.9 pg/mL (2.18-3.98); T4 Free Direct 0.58 ng/dL (0.76-1.46); Thyroid Stim Hormone (TSH) 4.85 uIU/mL (0.358-3.74)
== END | disposition home or self-care (01) ==
LOC: BFHLAB 13:05
PROVIDERS: PCP Family Medicine; Referring Provider Family Medicine; Visit Provider Family Medicine
DX: E03.9 Hypothyroidism, unspecified (principal)
CPT/HCPCS: 36415; 84439; 84443; 84481

== ENCOUNTER → 2022-10-02 | Outpatient (CLI) | payer MEDICARE, OTHER, SELFPAY ==
[2022-10-02 19:05] LABS: Bacteria 0 SEEN /hpf (None Seen); Mucous, Urine 0 SEEN /hpf (<or=2+); Red Blood Cells-Urine 0 SEEN /hpf (0-5)
--- NOTE | 2022-10-02 19:30 | RAD_ITS ---
INDICATION: COUGH, WEAKNESS EXAMINATION/TECHNIQUE: X-RAY - XR Chest 2 Views COMPARISON: Prior study dated: May 29, 2021 FINDINGS: LINES/DEVICES: None. LUNGS: No new consolidation, edema or effusion. There is a stable curvilinear opacity within the right lower lung suggestive of atelectasis and/or scarring. No pneumothorax. MEDIASTINUM AND CARDIOVASCULAR STRUCTURES: Cardiac silhouette not enlarged. Central airways and mediastinal contour are unremarkable. BONES AND SOFT TISSUES: There are degenerative changes of the thoracic spine. RAD/Chest PA and Lateral IMPRESSION: No radiographic evidence of acute cardiopulmonary disease. Electronically Signed: Kimi Teresa MD at 8:29 EDT ,
[2022-10-02 19:47] LABS: Color, Urine Yellow (Yellow); Glucose, Dipstick Normal (Normal); Ketone-Dipstick 5 mg/dl (Negative); Leukocyte Esterase-Dipstick 25 /ul (Negative); Nitrite-Dipstick Negative (Negative); Occult Blood-Urine Negative /ul (Negative); Protein-Dipstick 15 mg/dl (Negative); Specific Gravity, Urine 1.025 (1.002-1.030); Urine Bilirubin Dipstick Negative (Negative); Urine Clarity Clear (Clear); Urine Urobilinogen 1 mg/dl (Normal)
[2022-10-02 19:48] LABS: Absolute Neutrophil Count 3.7 X10^3/uL (2.0-7.7); Basophil# 0.03 X10^3/uL; Basophil% 0.5 % (0-1); Hematocrit 38.7 % (37-47); Hemoglobin 11.9 g/dL (12.0-15.0); Lymphocyte % 26.8 % (19-41); Mean Corp Hgb Conc 30.7 g/dL (32-36); Mean Corpuscular Hgb 27.4 pg (27.0-32.0); Monocyte# 0.33 X10^3/uL; Monocyte% 5.5 % (0-10); NRBC Flagged by Analyzer 0 % (0-5); Neutrophil # 3.69 X10^3/uL (2.7-7.7); Platelet Count 135 K/mm3 (150-450); RBC Distribution Width CV 14.6 % (11.6-14.6); RBC Distribution Width SD 47.8 fl (35.1-43.9); Red Blood Count 4.35 M/mm3 (4.2-5.4)
[2022-10-02 20:01] LABS: ALB/GLOB Ratio 0.9 RATIO (0.9-2.4); AST(SGOT) 40 U/L (15-37); Alanine Aminotransfer ALT/SGPT 30 U/L (13-56); Albumin, Serum 3.4 g/dL (3.2-5.0); Alkaline Phosphatase 95 U/L (45-117); Anion Gap 3 (5-15); BUN 22 mg/dL (7-18); BUN/Creat Ratio 16.9 RATIO (10-20); Calcium,Total 8.9 mg/dL (8.5-10.1); Chloride 106 mmol/L (98-107); EST Glomerular Filtration Rate 42 mL/min (>60); Est Glom Filt Rate - Afr Amer 51 mL/min (>60); Globulin 3.9 g/dL (2.2-4.2); Glucose 81 mg/dL (74-106); Potassium 4.9 mmol/L (3.5-5.1); Protein, Total 7.3 g/dL (6.4-8.2); Sodium Level 137 mmol/L (136-145); Thyroid Stim Hormone (TSH) 5.58 uIU/mL (0.358-3.74)
[2022-10-02 20:10] LABS: Hyaline Cast 5-10 SEEN /lpf (0-5); Squamous Epithelial Cells - UA 0-5 SEEN /hpf (5-10); White Blood Cells 0-5 SEEN /hpf (0-5)
== END | disposition home or self-care (01) ==
PROVIDERS: PCP Family Medicine; Referring Provider Family Medicine; Visit Provider Family Medicine
DX: I95.9 Hypotension, unspecified (principal); E03.9 Hypothyroidism, unspecified; R05.9 Cough, unspecified; R53.1 Weakness
CPT/HCPCS: 36415; 71046; 80053; 81001; 84443; 85025

== ENCOUNTER → 2022-11-21 | Outpatient (CLI) | payer MEDICARE, OTHER, SELFPAY ==
[2022-11-21 17:53] LABS: Absolute Lymphocyte Count 1.06 X10^3/uL (0.83-4.51); Absolute Neutrophil Count 3.8 X10^3/uL (2.0-7.7); Basophil# 0.03 X10^3/uL; Basophil% 0.6 % (0-1); Eosinophil# 0.16 X10^3/uL; Hematocrit 37.7 % (37-47); Hemoglobin 11.6 g/dL (12.0-15.0); Lymphocyte # 1.06 X10^3/ul (0.83-4.51); Mean Corp Hgb Conc 30.8 g/dL (32-36); Mean Corpuscular Hgb 27.9 pg (27.0-32.0); Mean Corpuscular Volume 90.6 fL (81-99); Mean Platelet Vol. 10.7 fl (6.2-12.0); Monocyte# 0.23 X10^3/uL; Monocyte% 4.3 % (0-10); NRBC Flagged by Analyzer 0 % (0-5); Neutrophil # 3.81 X10^3/uL (2.7-7.7); Neutrophil % 71.9 % (47-70); Platelet Count 109 K/mm3 (150-450); RBC Distribution Width CV 14.5 % (11.6-14.6); RBC Distribution Width SD 48.6 fl (35.1-43.9); Red Blood Count 4.16 M/mm3 (4.2-5.4); White Blood Count 5.3 K/mm3 (4.4-11.0)
[2022-11-21 18:07] LABS: Vitamin B12 555 pg/mL (211-911); Vitamin D,25 Hydroxy 68.2 ng/mL
[2022-11-21 18:24] LABS: ALB/GLOB Ratio 0.9 RATIO (0.9-2.4); AST(SGOT) 40 U/L (15-37); Alanine Aminotransfer ALT/SGPT 25 U/L (13-56); Albumin, Serum 3.5 g/dL (3.2-5.0); Alkaline Phosphatase 102 U/L (45-117); Anion Gap 6 (5-15); BUN 16 mg/dL (7-18); CRP 4.69 mg/L (0.0-3.0); Calcium,Total 9.2 mg/dL (8.5-10.1); Chloride 105 mmol/L (98-107); Creatinine, Serum 1.07 mg/dL (0.55-1.02); EST Glomerular Filtration Rate 53 mL/min (>60); Est Glom Filt Rate - Afr Amer 64 mL/min (>60); Free T3 1.4 pg/mL (2.18-3.98); Globulin 3.8 g/dL (2.2-4.2); Glucose 86 mg/dL (74-106); Iron 84 ug/dL (50-170); Potassium 4.6 mmol/L (3.5-5.1); Protein, Total 7.3 g/dL (6.4-8.2); Sodium Level 139 mmol/L (136-145); T4 Free Direct 0.89 ng/dL (0.76-1.46); Thyroid Stim Hormone (TSH) 3.44 uIU/mL (0.358-3.74)
[2022-11-21 18:25] LABS: Erythrocyte Sedimentation Rate 11 mm/hr (0-30)
== END | disposition home or self-care (01) ==
LOC: BFHLAB 15:06
PROVIDERS: PCP Family Medicine; Referring Provider Family Medicine; Visit Provider Family Medicine
DX: E03.9 Hypothyroidism, unspecified (principal); E55.9 Vitamin D deficiency, unspecified; E53.8 Deficiency of other specified B group vitamins; M25.50 Pain in unspecified joint; Z51.81 Encounter for therapeutic drug level monitoring
CPT/HCPCS: 36415; 80053; 82306; 82607; 83540; 84439; 84443; 84481; 85025; 85652; 86140

== ENCOUNTER → 2023-01-29 | Outpatient (CLI) | payer MEDICARE, OTHER, SELFPAY ==
[2023-01-29 11:09] LABS: Absolute Lymphocyte Count 1.59 X10^3/uL (0.83-4.51); Absolute Neutrophil Count 2.9 X10^3/uL (2.0-7.7); Basophil# 0.04 X10^3/uL; Basophil% 0.8 % (0-1); Eosinophil# 0.21 X10^3/uL; Eosinophils% 4.2 % (0-5); Hematocrit 38.3 % (37-47); Hemoglobin 11.4 g/dL (12.0-15.0); Lymphocyte # 1.59 X10^3/ul (0.83-4.51); Lymphocyte % 31.8 % (19-41); Mean Corp Hgb Conc 29.8 g/dL (32-36); Mean Corpuscular Volume 90.5 fL (81-99); Mean Platelet Vol. 9.8 fl (6.2-12.0); Monocyte# 0.28 X10^3/uL; Monocyte% 5.6 % (0-10); NRBC Flagged by Analyzer 0 % (0-5); Neutrophil # 2.85 X10^3/uL (2.7-7.7); Platelet Count 127 K/mm3 (150-450); RBC Distribution Width CV 14.1 % (11.6-14.6); RBC Distribution Width SD 46.4 fl (35.1-43.9); Red Blood Count 4.23 M/mm3 (4.2-5.4)
[2023-01-29 11:37] LABS: ALB/GLOB Ratio 0.9 RATIO (0.9-2.4); AST(SGOT) 32 U/L (15-37); Alanine Aminotransfer ALT/SGPT 19 U/L (13-56); Albumin, Serum 3.5 g/dL (3.2-5.0); Alkaline Phosphatase 96 U/L (45-117); Anion Gap 4 (5-15); BUN 17 mg/dL (7-18); BUN/Creat Ratio 14.9 RATIO (10-20); Calcium,Total 8.6 mg/dL (8.5-10.1); Chloride 107 mmol/L (98-107); Cholesterol 132 mg/dL (200); Creatinine, Serum 1.14 mg/dL (0.55-1.02); EST Glomerular Filtration Rate 49 mL/min (>60); Est Glom Filt Rate - Afr Amer 60 mL/min (>60); Globulin 3.8 g/dL (2.2-4.2); Glucose 77 mg/dL (74-106); High Density Lipoprotein 35 mg/dL; Potassium 4.5 mmol/L (3.5-5.1); Protein, Total 7.3 g/dL (6.4-8.2); Sodium Level 139 mmol/L (136-145); Thyroid Stim Hormone (TSH) 4.79 uIU/mL (0.358-3.74); Triglycerides 162 mg/dL; Very Low Density Lipoprotein 32 mg/dL (5-40)
[2023-01-30 04:07] LABS: Thyroid Peroxidase AB 20 IU/mL (0-34)
== END | disposition home or self-care (01) ==
LOC: LAB 10:24
PROVIDERS: Internal Medicine Endocrinology, Diabetes & Metabolism; PCP Family Medicine; Referring Provider Family Medicine; Visit Provider Family Medicine
DX: E03.9 Hypothyroidism, unspecified (principal); E04.1 Nontoxic single thyroid nodule; E78.5 Hyperlipidemia, unspecified; M79.7 Fibromyalgia; Z51.81 Encounter for therapeutic drug level monitoring
CPT/HCPCS: 36415; 80053; 80061; 84439; 84443; 85025; 86376

== ENCOUNTER 2023-02-17 15:02 | Emergency (ER) | payer MEDICARE, OTHER, SELFPAY ==
[2023-02-17 15:04] VITALS: BP 154/79; PULSE 71; RESP 18; TEMP 35.7; BMI 27.0
--- NOTE | 2023-02-17 15:15 | RAD_ITS ---
EXAM: XR LEFT WRIST COMPLETE, 3 OR MORE VIEWS CLINICAL INDICATION: injury TECHNIQUE: Frontal, lateral and oblique views of the left wrist. COMPARISON: No relevant prior studies available. FINDINGS: BONES/JOINTS: Degenerative findings of the first carpal metacarpal joint. No acute fracture. No subluxation. Normal alignment. No sclerotic or destructive changes observed. SOFT TISSUES: Soft tissue swelling around the wrist. There is an impacted fracture of the distal radius. No radiopaque foreign body. RAD/Wrist min 3 Views IMPRESSION: Soft tissue swelling around the wrist. There is an impacted fracture of the distal radius. Electronically Signed: Nick Alicea MD at 15:41 EST ,
--- NOTE | 2023-02-17 15:16 | EDS_ITS ---
HPI History of Present Illness Chief Complaint: Upper Extremity Injury Informant: patient Occured/Mechanism Mechanism/Context: Yes fall Narrative Narrative: Patient present secondary to left wrist injury that occurred 1 week ago. She states she fell backwards injuring her left hand. She has had some swelling and bruising. She has been using a Velcro wrist splint but was not seen for evaluation after her injury. She states she thought it would get better but she has had increased burning pain in her hand over the last couple of days. She does describe intermittent paresthesias. She is already on methadone and Percocet at home for pain. [facility] Medical History Ambulates with cane Anemia Arthritis Back pain COPD (chronic obstructive pulmonary disease) CPAP (continuous positive airway pressure) dependence Fibromyalgia Former smoker Gastric reflux History of echocardiogram History of stress test Hypertension Hypothyroidism (acquired) [place] Post-menopausal Seasonal allergies Sleep apnea Thyroid disease Thyroid nodule Home Medications alprazolam 0.5 mg tablet 0.5 mg PO TID PRN PRN Anxiety 09/12/15 [History Last Taken Unknown] calcium carbonate 600 mg calcium (1,500 mg) tablet 1,200 mg PO DAILY 09/12/15 [History Last Taken Unknown] gabapentin 300 mg tablet,extended release 24 hr (Gralise) 300 mg PO BID 09/12/15 [History Last Taken Unknown] metoprolol tartrate 25 mg tablet 25 mg PO DAILY 09/12/15 [History Last Taken 09/16/15 07:00] oxycodone-acetaminophen 5 mg-325 mg tablet 1 tab PO Q12H PRN PRN Pain 09/12/15 [History Last Taken Unknown] sertraline 100 mg tablet 200 mg PO QHS 09/12/15 [History Last Taken Unknown] trazodone 150 mg tablet 100 mg PO QHS 09/12/15 [History Last Taken Unknown] albuterol sulfate 90 mcg/actuation aerosol inhaler 1 - 2 puff inhalation Q4H PRN PRN Sob &/Or Wheezing 05/14/19 [History Last Taken Unknown] bupropion HCl 300 mg 24 hr tablet, extended release 300 mg PO DAILY 05/14/19 [History Last Taken Unknown] atorvastatin 10 mg tablet 10 mg PO QHS 03/16/21 [History Last Taken Unknown] cholecalciferol (vitamin D3) 25 mcg (1,000 unit) capsule (Vitamin D3) 25 mcg PO DAILY 03/16/21 [History Last Taken Unknown] diclofenac sodium 75 mg tablet,delayed release 75 mg PO BID 03/16/21 [History Last Taken Unknown] ferrous sulfate 325 mg (65 mg iron) capsule,extended release 325 mg PO DAILY 03/16/21 [History Last Taken Unknown] fluticasone fur. 100 mcg-umeclid 62.5 mcg-vilant 25 mcg inhalat.powder (Trelegy Ellipta) 1 inh inhalation DAILY 03/16/21 [History Last Taken Unknown] fluticasone propionate 50 mcg/actuation nasal spray,suspension 1 spray intranasal DAILY 03/16/21 [History Last Taken Unknown] methadone 5 mg tablet 5 mg PO BID 03/16/21 [History Last Taken Unknown] montelukast 10 mg tablet 10 mg PO DAILY 03/16/21 [History Last Taken Unknown] aspirin 81 mg chewable tablet 81 mg PO BIDCM 30 days #60 tabs 06/15/21 [Rx Last Taken Unknown] levothyroxine 25 mcg capsule 25 mcg PO DAILY 12/04/22 [History Last Taken Unknown] mecobalamin (vitamin B12) 1,000 mcg chewable tablet 1,000 mcg PO DAILY 12/04/22 [History Last Taken Unknown] Allergy/AdvReac Type Severity Reaction Status Date / Time meperidine HCl [From Demerol] Allergy HALLUCINATI Verified 02/17/23 15:04 ONS Surgical History History of shoulder replacement Hx laparoscopic cholecystectomy Hx of amputation of lesser toe Hx of appendectomy Hx of bilateral cataract extraction Hx of colonoscopy Hx of foot surgery Social History Smoking Status: Former smoker alcohol intake: never substance use type: does not use what type of physical activity do you participate in: none ROS ROS ED Constitutional Constitutional ED: Denies chills or fever(s) ENT ENT ED: Denies rhinorrhea Cardiovascular Cardiovascular: Denies chest pain Respiratory/Chest Respiratory/Chest: Denies cough or dyspnea Gastrointestinal Gastrointestinal: Denies abdominal pain, nausea or vomiting Musculoskeletal Musculoskeletal: Reports extremity pain; Denies back pain Integumentary Denies Abrasions or rash Neurologic Neurologic: Reports paresthesias and weakness; Denies headache(s) Psychiatric Psychiatric: Denies anxiety or depression Allergic/Immunologic Allergic/Immunologic ED: Denies lip swelling or urticaria EXAM Physical Exam Const Vital Signs: 02/17/23 15:04 Temperature 96.3 F L Temperature Source Temporal Pulse Rate 71 Respiratory Rate 18 Blood Pressure 154/79 H Blood Pressure Mean 104 Oxygen Delivery Method Room Air Positive well nourished and well developed General Appearance ED: well developed Eyes EOMs intact bilaterally Neck full ROM Chest Wall inspection of chest normal and palpation of chest normal Resp normal respiratory effort and clear to auscultation bilaterally Cardio regular rate and regular rhythm GI non-tender Palpation: soft Extremity Extremity Narrative: Old appearing ecchymosis noted to the left hand and distal left forearm. Mild tenderness and edema noted over the distal radius. Good cap refill and sensation. She can wiggle fingers without difficulty. No focal tenderness at the elbow or shoulder. Neuro oriented x3 and moves all extremities MDM MDM MDM Narrative Medical decision making narrative: X-rays of the left hand and wrist obtained to evaluate for possible fracture. Differential diagnosis includes fracture, contusion, sprain, strain. Radiography Diagnostic Testing: Radiology Impression Wrist X-Ray 02/17/23 15:15 IMPRESSION: Soft tissue swelling around the wrist. There is an impacted fracture of the distal radius. Electronically Signed: Nick Alicea MD at 15:41 EST , Hand X-Ray 02/17/23 15:23 IMPRESSION: Soft tissue swelling around the wrist. There is an impacted fracture of the distal radius. Electronically Signed: Nick Alicea MD at 15:40 EST , Treatment and Re-Evaluation Narrative: Left rib and hand x-rays per my interpretation reveal a nondisplaced left distal radius fracture. Radiology interpretation is reviewed and agrees. Test results discussed with patient and family at bedside. She is placed in an [facility]- Glass splint by myself. Following splint application she has good cap refill distally and can wiggle fingers. Patient has seen Dr. Mora in the past and will follow-up with him. Patient is already on methadone and Percocet at home for baseline pain control. Discharge Plan Triage Chief Complaint: Upper Extremity Injury ED Provider: Nancy Goodman Dx/Rx/DC Orders Clinical Impression: Left wrist fracture Instructions: ED Fracture, Wrist, General Prescriptions: No Action levothyroxine 25 mcg capsule 25 mcg PO DAILY mecobalamin (vitamin B12) 1,000 mcg tablet,chewable 1,000 mcg PO DAILY sertraline 100 MG tablet 200 mg PO QHS oxycodone-acetaminophen 1 TABLET tablet 1 tab PO Q12H PRN PRN (Reason: Pain) alprazolam 0.5 MG tablet 0.5 mg PO TID PRN PRN (Reason: Anxiety) calcium carbonate 600 MG tablet 1,200 mg PO DAILY trazodone 150 MG tablet 100 mg PO QHS metoprolol tartrate 25 MG tablet 25 mg PO DAILY Gralise 300 MG tablet extended release 24 hr 300 mg PO BID albuterol sulfate 1 INHALER inhaler 1 - 2 puff inhalation Q4H PRN PRN (Reason: Sob &/Or Wheezing) bupropion HCl 300 MG tablet extended release 24 hr 300 mg PO DAILY atorvastatin 10 mg tablet 10 mg PO QHS diclofenac sodium 75 mg tablet,delayed release (DR/EC) 75 mg PO BID montelukast 10 mg tablet 10 mg PO DAILY methadone 5 mg tablet 5 mg PO BID fluticasone propionate 50 mcg/actuation spray,suspension 1 spray INTRANASAL DAILY Patient Comments: 1 spray intranasally daily in each nostril ferrous sulfate 325 mg (65 mg iron) Capsule, Extended Release 325 mg PO DAILY cholecalciferol (vitamin D3) [Vitamin D3] 25 mcg (1,000 unit) Capsule 25 mcg PO DAILY Trelegy Ellipta 100-62.5-25 mcg blister with device 1 inh INHALATION DAILY aspirin 81 mg Tablet,Chewable 81 mg PO BIDCM 30 Days Qty: 60 0RF Rx Instructions: Take 81 mg aspirin twice daily for 4 weeks postoperatively for DVT prophylaxis Primary Care Provider: Norma Contreras Referrals: Norma Contreras DO [Primary Care Provider] - Lyle Mora MD [Med Staff - Active Staff] - 3-5 Days Disposition Disposition: Home, Self Care
--- NOTE | 2023-02-17 15:23 | RAD_ITS ---
STUDY: XR Hand Min 3 Views REASON FOR EXAM: Female, 77 years old. injury TECHNIQUE: XR Hand Min 3 Views LEFT COMPARISON: None. FINDINGS: Normal radiocarpal articulation. Normal distal radioulnar joint. Normal visualized carpal bones. Normal carpal articulations There is degenerative arthrosis of the carpometacarpal (CMC) articulation of the thumb. Normal second through fifth carpometacarpal joints. Normal metacarpi. Soft tissue swelling around the wrist. There is an impacted fracture of the distal radius. Normal metacarpophalangeal joint of the thumb. Normal interphalangeal joint of the thumb. Normal proximal and distal phalanges of the thumb. Normal metacarpophalangeal joints of the second through fifth fingers. There is diffuse articular joint space narrowing of the proximal and distal interphalangeal joints of the second through fifth fingers, but without erosive changes or periarticular soft tissue swelling. Normal phalanges of the second through fifth fingers. RAD/Hand Min 3 Views IMPRESSION: Soft tissue swelling around the wrist. There is an impacted fracture of the distal radius. Electronically Signed: Nick Alicea MD at 15:40 EST Reading Location ID and State: [facility] / [place] , Service support ,
== END 2023-02-17 16:10 | disposition home or self-care (01) ==
PROVIDERS: Emergency Provider Emergency Medicine; PCP Family Medicine; Visit Provider Emergency Medicine
DX: S62.102A Fracture of unspecified carpal bone, left wrist, initial encounter for closed fracture (principal); J44.9 Chronic obstructive pulmonary disease, unspecified; G47.30 Sleep apnea, unspecified; Z87.891 Personal history of nicotine dependence; W19.XXXA Unspecified fall, initial encounter
CPT/HCPCS: 73110; 73130; 99282

== ENCOUNTER → 2023-05-01 | Outpatient (CLI) | payer MEDICARE, OTHER, SELFPAY ==
--- OUTSIDE RECORDS SUMMARY | 2023-05-01 15:11 | XMS RPT_ITS | CCD ---
Author Name Unknown Address [address] [place] [id number] Organization [facility] Care Team Providers Care Rate Quoting Operator Name Role Phone Unavailable Primary Care Provider Ginna HERNÁNDEZ MD, DR CARL Thomas JR Primary Care Physician Unavailable Primary Care Provider Ginna Haro Primary Care Provider Ginna MARES, TORY Cortez Attending Unavailable MARLEN, TORY Cortez Attending Unavailable MARLEN, TORY Cortez Attending Unavailable MARLEN, TORY Cortez Attending Unavailable DORIAN ELAL Attending Unavail able MARLEN, TORY Cortez Attending Unavailable MARLEN, TORY Cortez Attending Unavailable MARLEN, TORY Cortez Attending Unavailable MARLEN, TORY Cortez Attending Unavailable Allergies Allergy Classification Reported Allergen(s) Allergy Type Date of Onset Reaction(s) Facility (20 sources) Meperidine; Translations: [meperidine] Drug Allergy 07-10-2017 Unknown [facility] Medications Current Medications Medication Drug Class(es) Dates Sig (Normalized) Sig (Original) aspirin 81 mg oral tablet (2 sources) Platelet Aggregation Inhibitor, Nonsteroidal Anti-inflammatory Drug Start: 06-25-2014 take 1 dose by mouth once daily aspirin Dose : 81 mg =, Oral, qDay Start Date: 06/25/14 Status: Ordered Calcium (2 sources) Phosphate Binder, Calcium Start: 06-25-2014 take 1 tablet by mouth three times daily Calcium 600+D Dose = 1 tab(s), Oral, TID Start Date: 06/25/14 Status: Ordered gabapentin 300 mg oral capsule (20 sources) Anti-epileptic Agent Start: 06-25-2014 End: 05-25-2023 take 1 capsule by mouth twice daily gabapentin (NEURONTIN) 300 mg capsule Indications: Degeneration of intervertebral disc of lumbar region Take 1 capsule by mouth two times a day for 120 days. 60 capsule 3 01/25/2023 05/25/2023 Active Completed/Discontinued Medications Medication Drug Class(es) Dates Sig (Normalized) Sig (Original) acetaminophen 325 mg / oxyCODONE hydrochloride 5 mg oral tablet (20 sources) Opioid Agonist Start: 12-21-2022 End: 01-20-2023 take 1 tablet by mouth twice daily as needed for pain oxyCODONE-acetaminop hen (PERCOCET) 5-325 mg tablet Indications: Degeneration of intervertebral disc of lumbar region Take 1 tablet by mouth two times a day as needed for pain for up to 30 days. 60 tablet 0 12/21/2022 Active Problems Active Problems Problem Classification Problem Date Documented Date Episodic/Chronic Anxiety disorders (2 sources) Mixed anxiety and depressive disorder 10-19-2013 Chronic Chronic obstructive pulmonary disease and bronchiectasis (2 sources) Chronic obstructive lung disease 10-19-2013 Chronic Essential hypertension (2 sources) Hypertensive disorder 06-25-2014 Chronic Heart valve disorders (2 sources) Mitral valve prolapse 10-19-2013 Chronic Osteoarthritis (20 sources) Osteoarthritis of hip; Translations: [Other unilateral secondary osteoarthritis of hip] Onset: 07-10-2017 Chronic Other connective tissue disease (3 sources) Fibromyositis; Translations: [Fibromyalgia] Onset: 07-10-2017 08-17-2021 Episodic Residual codes; unclassified (20 sources) Sleep apnea; Translations: [Sleep apnea, unspecified] Onset: 08-17-2021 08-17-2021 Chronic Spondylosis; intervertebral disc disorders; other back problems (20 sources) Degeneration of lumbar intervertebral disc; Translations: [Other intervertebral disc degeneration, lumbar region] Onset: 07-10-2017 08-17-2021 Chronic Spondylosis; intervertebral disc disorders; other back problems (2 sources) Backache 10-19-2013 Episodic Unclassified (2 sources) Foot repair 10-19-2013 Past or Other Problems Problem Classification Problem Date Documented Da te Episodic/Chronic Other aftercare (20 sources) Long-term current use of drug therapy; Translations: [Other terminal gauger supervisor (current) drug therapy] Onset: 04-03-2018 08-17-2021 Episodic Other aftercare (1 source) Other terminal gauger supervisor (current) drug therapy; Translations: [Other terminal gauger supervisor (current) drug therapy] Onset: 08-17-2021 Episodic Other connective tissue disease (20 sources) Myofascial pain syndrome; Translations: [Myalgia, other site] Onset: 07-10-2017 Episodic Other connective tissue disease (1 source) Myalgia, other site; Translations: [Myofascial pain syndrome] Onset: 10-23-2021 Episodic Results Test Name Value Interpretation Reference Range Facil ity Vital Signs Date Time Vital Sign Value Performing Clinician Mary Jo mitchell 02-12-2023 09:15-0500 Body temperature 97.81 [degF] Tory Mares PA-C Work Phone: [facility] 02-12-2023 09:15-0500 Diastolic blood pressure 86 mm[Hg] Toyr Mares PA-C Work Phone: [facility] 02-12-2023 09:15-0500 Heart rate 72 /min Tory MCINTYRE-C Work Phone: [facility] 02-12-2023 09:15-0500 Respiratory rate 18 /min Tory Mares PA-C Work Phone: [facility] 02-12-2023 09:15-0500 SaO2% (BldA) [Mass fraction] 96 % Tory Mares PA-C Work Phone: [facility] 02-12-2023 09:15-0500 Systolic blood pressure 133 mm[Hg] Tory Mares PA-C Work Phone: [facility] 12-31-2022 08:43-0400 Body temperature 97.2 [degF] Tory Mares PA-C Work Phone: [facility] 12-31-2022 08:43-0400 Diastolic blood pressure 84 mm[Hg] Tory Mares PA-C Work Phone: [facility] 12-31-2022 08:43-0400 Heart rate 71 /min Tory Mares PA-C Work Phone: [facility] 12-31-2022 08:43-0400 Respiratory rate 18 /min Tory Mares PA-C Work Phone: [facility] 12-31-2022 08:43-0400 SaO2% (BldA) [Mass fraction] 97 % Tory Mares PA-C Work Phone: [facility] 12-31-2022 08:43-0400 Systolic blood pressure 148 mm[Hg] Tory Mares PA-C Work Phone: [facility] 10-02-2022 10:02-0400 Body height 157.5 cm Tory Mares PA-C Work Phone: [facility] 10-02-2022 10:02-0400 Body temperature 96.6 [degF] Tory Mares PA-C Work Phone: [facility] 10-02-2022 10:02-0400 Body weight 63.05 kg Tory Mares PA-C Work Phone: [facility] 10-02-2022 10:02-0400 Diastolic blood pressure 62 mm[Hg] Tory Mares PA-C Work Phone: [facility] 10-02-2022 10:02-0400 Heart rate 82 /min Tory MCINTYRE-C Work Phone: [facility] 10-02-2022 10:02-0400 SaO2% (BldA) [Mass fraction] 97 % Tory Mares PA-C Work Phone: [facility] 10-02-2022 10:02-0400 Systolic blood pressure 123 mm[Hg] Tory Mares PA-C Work Phone: [facility] 08-21-2022 09:50-0400 Body temperature 97.81 [degF] Tory Mares PA-C Work Phone: [facility] 08-21-2022 09:50-0400 Diastolic blood pressure 65 mm[Hg] Tory Mares PA-C Work Phone: [facility] 08-21-2022 09:50-0400 Heart rate 71 /min Tory Mares PA-C Work Phone: [facility] 08-21-2022 09:50-0400 Respiratory rate 18 /min Tory Mares PA-C Work Phone: [facility] 08-21-2022 09:50-0400 SaO2% (BldA) [Mass fraction] 95 % Tory Mares PA-C Work Phone: [facility] 08-21-2022 09:50-0400 Systolic blood pressure 139 mm[Hg] Tory Mares PA-C Work Phone: [facility] 07-10-2022 09:33-0400 Body height 157.5 cm Tory Mares PA-C Work Phone: [facility] 07-10-2022 09:33-0400 Body temperature 96.4 [degF] Tory Mares PA-C Work Phone: [facility] 07-10-2022 09:33-0400 Body weight 62.6 kg Tory Mares PA-C Work Phone: [facility] 07-10-2022 09:33-0400 Diastolic blood pressure 62 mm[Hg] Tory Mares PA-C Work Phone: [facility] 07-10-2022 09:33-0400 Heart rate 76 /min Tory Mares PA-C Work Phone: [facility] 07-10-2022 09:33-0400 Respiratory rate 20 /min Tory Mares PA-C Work Phone: [facility] 07-10-2022 09:33-0400 SaO2% (BldA) [Mass fraction] 94 % Tory Mares PA-C Work Phone: [facility] 07-10-2022 09:33-0400 Systolic blood pressure 134 mm[Hg] Tory Mares PA-C Work Phone: [facility] 05-28-2022 10:16-0400 Body temperature 97.59 [degF] Tory Mares PA-C Work Phone: [facility] 05-28-2022 10:16-0400 Diastolic blood pressure 77 mm[Hg] Tory Mares PA-C Work Phone: [facility] 05-28-2022 10:16-0400 Heart rate 88 /min Tory Mares PA-C Work Phone: [facility] 05-28-2022 10:16-0400 Respiratory rate 20 /min Tory Mares PA-C Work Phone: [facility] 05-28-2022 10:16-0400 SaO2% (BldA) [Mass fraction] 95 % Tory Mares PA-C Work Phone: [facility] 05-28-2022 10:16-0400 Systolic blood pressure 127 mm[Hg] Tory Mares PA-C Work Phone: [facility] 04-16-2022 10:02-0500 Body height 157.5 cm Dorian Leal MD Work Phone: [facility] 04-16-2022 10:02-0500 Body temperature 97.9 [degF] Dorian Leal MD Work Phone: [facility] 04-16-2022 10:02-0500 Body weight 67.13 kg Dorian Leal MD Work Phone: [facility] 04-16-2022 10:02-0500 Diastolic blood pressure 77 mm[Hg] Dorian Leal MD Work Phone: [facility] 04-16-2022 10:02-0500 Heart rate 102 /min Dorian Leal MD Work Phone: [facility] 04-16-2022 10:02-0500 Respiratory rate 20 /min Dorian Leal MD Work Phone: [facility] 04-16-2022 10:02-0500 SaO2% (BldA) [Mass fraction] 96 % Dorian Leal MD Work Phone: [facility] 04-16-2022 10:02-0500 Systolic blood pressure 136 mm[Hg] Dorian Leal MD Work Phone: [facility] 02-27-2022 10:35-0500 Diastolic blood pressure 80 mm[Hg] Tory Mares PA-C Work Phone: [facility] 02-27-2022 10:35-0500 Heart rate 89 /min Tory Mares PA-C Work Phone: [facility] 02-27-2022 10:35-0500 Systolic blood pressure 156 mm[Hg] Tory Mares PA-C Work Phone: [facility] 02-27-2022 10:32-0500 Body height 157.5 cm Tory Mares PA-C Work Phone: [facility] 02-27-2022 10:32-0500 Body temperature 97.5 [degF] Tory Mares PA-C Work Phone: [facility] 02-27-2022 10:32-0500 Body weight 67.59 kg Tory Mares PA-C Work Phone: [facility] 02-27-2022 10:32-0500 Respiratory rate 20 /min Tory Mares PA-C Work Phone: [facility] 02-27-2022 10:32-0500 SaO2% (BldA) [Mass fraction] 96 % Tory Mares PA-C Work Phone: [facility] 01-16-2022 10:17-0400 Body height 157.5 cm Tory Mares PA-C Work Phone: [facility] 01-16-2022 10:17-0400 Body temperature 97.3 [degF] Tory Mares PA-C Work Phone: [facility] 01-16-2022 10:17-0400 Body weight 63.5 kg Tory Mares PA-C Work Phone: [facility] 01-16-2022 10:17-0400 Diastolic blood pressure 52 mm[Hg] Tory Mares PA-C Work Phone: [facility] 01-16-2022 10:17-0400 Heart rate 70 /min Tory Mares PA-C Work Phone: [facility] 01-16-2022 10:17-0400 Respiratory rate 20 /min Tory Mares PA-C Work Phone: [facility] 01-16-2022 10:17-0400 SaO2% (BldA) [Mass fraction] 98 % Tory Mares PA-C Work Phone: [facility] 01-16-2022 10:17-0400 Systolic blood pressure 134 mm[Hg] Tory Mares PA-C Work Phone: [facility] 12-05-2021 10:09-0400 Body height 160 cm Tory Mares PA-C Work Phone: [facility] 12-05-2021 10:09-0400 Body temperature 97.3 [degF] Tory Mares PA-C Work Phone: [facility] 12-05-2021 10:09-0400 Body weight 63.05 kg Tory Mares PA-C Work Phone: [facility] 12-05-2021 10:09-0400 Diastolic blood pressure 72 mm[Hg] Tory Mares PA-C Work Phone: [facility] 12-05-2021 10:09-0400 Heart rate 78 /min Tory Mares PA-C Work Phone: [facility] 12-05-2021 10:09-0400 Respiratory rate 20 /min Tory Mares PA-C Work Phone: [facility] 12-05-2021 10:09-0400 SaO2% (BldA) [Mass fraction] 96 % Tory Mares PA-C Work Phone: [facility] 12-05-2021 10:09-0400 Systolic blood pressure 132 mm[Hg] Tory Mares PA-C Work Phone: [facility] 10-24-2021 10:19-0400 Body height 160 cm Tory Mares PA-C Work Phone: [facility] 10-24-2021 10:19-0400 Body temperature 97.81 [degF] Tory Mares PA-C Work Phone: [facility] 10-24-2021 10:19-0400 Body weight 14.97 kg Tory Mares PA-C Work Phone: [facility] 10-24-2021 10:19-0400 Diastolic blood pressure 65 mm[Hg] Tory Mares PA-C Work Phone: [facility] 10-24-2021 10:19-0400 Heart rate 86 /min Tory Mares PA-C Work Phone: [facility] 10-24-2021 10:19-0400 Respiratory rate 20 /min Tory Mares PA-C Work Phone: [facility] 10-24-2021 10:19-0400 SaO2% (BldA) [Mass fraction] 96 % Tory Mares PA-C Work Phone: [facility] 10-24-2021 10:19-0400 Systolic blood pressure 136 mm[Hg] Tory Mares PA-C Work Phone: [facility] 09-12-2021 10:08-0400 Body temperature 97.39 [degF] Tory Mares PA-C Work Phone: [facility] 09-12-2021 10:08-0400 Body weight 60.78 kg Tory Mares PA-C Work Phone: [facility] 09-12-2021 10:08-0400 Diastolic blood pressure 84 mm[Hg] Tory Mares PA-C Work Phone: [facility] 09-12-2021 10:08-0400 Heart rate 97 /min Tory MCINTYRE-C Work Phone: [facility] 09-12-2021 10:08-0400 Respiratory rate 20 /min Tory Mares PA-C Work Phone: [facility] 09-12-2021 10:08-0400 SaO2% (BldA) [Mass fraction] 98 % Tory Mares PA-C Work Phone: [facility] 09-12-2021 10:08-0400 Systolic blood pressure 135 mm[Hg] Tory Marse PA-C Work Phone: [facility] Encounters Encounter Date Encounter Type Care Provider Facility Start: 03-26-2023 End: 03-26-2023 ambulatory TORY MARES Facility:[id number] Start: 02-26-2023 Refill Tory fraga PA-C Work Phone: Pain Management Procedures Date Procedure Procedure Detail Performing Clinician Appendectomy ELYSE Jang Appendectomy Appendectomy( Confirmed ) RA Y SUSAN DIOP Cholecystectomy ELYSE DAVIS PA-C Cholecystectomy Cholecystectomy( Confirme d ) ELYSE DAVIS PA-C Plan of Treatment Date Care Activity Detail Author Start: 12-31-2022 End: 03-02-2023 TOXASSURE FLEX 23, URINE TOXASSURE FLEX 23, URINE Lab Routine Degeneration of intervertebral disc of lumbar region Other terminal gauger supervisor (current) drug therapy Expected: 12/31/2022, Expires: 03/02/2023 [facility] Work Phone: Immunizations Immunization Date Immunization Notes Care Provider Fa cility 01-10-2022 influenza virus vacc ine, unspecified formulation Tory Mares PA-C Work Phone: [facility] Payers Date Payer Category Payer Medicare [id number] 2015 Unknown [employer] [place] MEDICARE SUPPLEMENT [id number] 2015-Present [phone] [id number] [employer] [employer] [place] [address] Indemnity [id number] 2015 Unknown [employer] [employer] [place] [employer] [employer] [place] MEDIC[employer] SUPPLEMENT [id number] 2015-Present [phone] [id number] [employer] [place] [place] [address] Indemnity [id number] 2014 Medicare MEDICARE MEDICAR E A AND B [id number] 2014-Present [phone] [place] [address] Medicare [id number] 2014 Medicare MEDICARE MEDICAR E A AND B [id number] 2014-Present [phone] [place] [address] Medicare [id number] 2014 Medicare [id number] Social History Date Type Detail Facility Tobacco smoking status [facility] Tobacco smoking consumption unknown [facility] Start: 1945 Sex Assigned At Not on file [facility] Tobacco smoking status Never smoked tobacco (finding) [facility] Sex Assigned At Female [facility] Start: 08-17-2021 End: 09-12-2021 Tobacco smoking status NHIS Ex-smoker [facility] Start: 08-17-2021 End: 09-12-2021 Tobacco use and exposure Smokeless tobacco non-user [facility] Start: 09-12-2021 End: 02-12-2023 Alcohol intake Ex-drinker (finding) [facility] Start: 09-02-2021 End: 01-16-2022 Exposure to SARS-CoV-2 (event) Not sure [facility] History of tobacco use Current smoker [facility] Start: 10-02-2022 End: 02-12-2023 History of Social function [facility] Start: 10-02-2022 End: 02-12-2023 Tobacco use panel [facility] National Score (1-100), lower number is lower risk 56 [facility] Functional Status Date Assessment Result Facility 06-19-2021 Functional Status [facility] Clinical Notes 09-12-2021 to 03-26-2023 Telephone Encounter - Tory Mares PA-C - 02/26/2023 3:21 PM ESTTelephone Encounter - Yenny Swann RN - 02/26/2023 3:19 PM ESTPatient InstructionsPatient InstructionsPatient Instructions Note Date & Type Note Facility 03-26-2023 Note HNO ID: [id number] Author: TORY MARES PA-C Service: ? Author Type: Physician Director Marketing Communications Type: Progress Notes Filed: 03/26/2023 09:22 Note Text: This note was created using Nuvyyoter. Subjective Veronica Adan is a 77 year old female. The patient primarily being seen for back pain Patient was last seen on: 02/12/23 At that time, the treatment plan was: see notes Current Meds: Methadone last dose last pm,Percocet last dose last pm, Gabapentin last dose last pm Efficacy: meds help pain Side effects: tiredness TENS unit: no How often used: Benefit: Physical Therapy: Last UDS: 12/31/22 Last injection: none OARRS reviewed yes At the present time, the patient reports benefit with her present analgesic therapy. She has issues with tiredness with the medications. Since her previous visit, she broke her left wrist about a week ago after falling. She is seeing [facility]. INTAKE PAIN ASSESSMENT 02/12/2023 03/26/2023 Are you having pain associated with your visit today? Yes, Provider notified Yes, Provider notified Pain Scales Verbal (Numeric Rating or Visual Analog Scale) Verbal (Numeric Rating or Visual Analog Scale) Pain Level 6 6 Pain Location Back-Lower Back-Lower Description Dull Dull Duration Units - - Frequency Continuous Continuous Intervention/Comfort measure Medication;Relaxation;Heat Medication HPI PAST MEDICAL HISTORY Diagnosis Date Ankle fracture 12/2018 right Anxiety state Bronchitis, chronic (HCC) Depression Hypothyroidism ALETHA (obstructive sleep apnea) PAST SURGICAL HISTORY Procedure Laterality Date FOOT SURGERY HX REMOVAL GALLBLADDER REMV CATARACT EXTRACAP,INSERT LENS 2019 TOTAL HIP REPLACEMENT Left 06/14/2021 Social History Tobacco Use Smoking status: Former Smokeless tobacco: Never Substance Use Topics Alcohol use: Not Currently Drug use: Never Review of Systems Constitutional: Negative for fever and unexpected weight change. Musculoskeletal: +back pain, joint pain, muscles cramps/weakness, stiffness, arthritis, sciatica, and leg pain with exertion. Objective BP 125/77 (BP Site: Right Arm, BP Position: Sitting, BP Cuff Size: Large Adult) Pulse 84 Temp 36.3 ?C (97.3 ?F) Resp 18 SpO2 100% Physical Exam Vitals and nursing note reviewed. Constitutional: Appearance: Normal appearance. She is well-developed, well-groomed and normal weight. HENT: Head: Normocephalic and atraumatic. Right Ear: Hearing normal. Left Ear: Hearing normal. Eyes: Conjunctiva/sclera: Conjunctivae normal. Musculoskeletal: Comments: She is using a cane for assistance with her gait which is unsteady. She has tenderness to palpation in the cervical and lumbar region with spasms noted in the trapezius and paraspinal muscles. There is tenderness to palpation in the knees bilaterally with crepitus noted. Strength 5/5 throughout. Sensation is intact to light touch throughout. There is a brace on the right foot secondary to foot drop. SLR is negative. She has a cast on her left arm. Neurological: Mental Status: She is alert and oriented to person, place, and time. Psychiatric: Attention and Perception: Attention and perception normal. Mood and Affect: Mood and affect normal. Behavior: Behavior normal. Behavior is cooperative. Thought Content: Thought content normal. Judgment: Judgment normal. Assessment and Plan ASSESSMENT/PLAN: 1. Degeneration of intervertebral disc of lumbar region - ICD9: 722.52, ICD10: M51.36 (primary diagnosis) The OARRS report has been reviewed and is consistent with the patients medical history and medication intake. The patient will continue with methadone, Percocet, and gabapentin. You can try taking 1/2 of a methadone 4 times a day to see if that helps with the drowsiness or 1/2 in the AM, 1/2 in the afternoon, and one in the evening. Patient was previously offered naloxone. She will continue with core strengthening and range of motion exercises. Next EKG is due 05/2023 Follow-up in office in 6 weeks time. FU with [facility] for the fractured left radius. - METHADONE 5 MG TABLET (Two stable chronic illnesses/prescription drug management) 2. Lumbar spondylosis - ICD9: 721.3, ICD10: M47.816 3. Degeneration of intervertebral disc of cervical region - ICD9: 722.4, ICD10: M50.30 4. Osteoarthritis, generalized - ICD9: 715.00, ICD10: M15.9 5. Myofascial pain syndrome - ICD9: 729.1, ICD10: M79.18 Tory Mares PA-C [facility] 02-26-2023 Miscellaneous Notes The following approved medication requests have been transmitted electronically. Requested Prescriptions Pending Prescriptions Disp Refills methadone (DOLOPHINE) 5 mg tablet 60 tablet 0 Sig: Take 1 tablet by mouth every 12 hours as needed for pain for up to 30 days. Tory Mares PA-C Patient phones requesting refills as follows: Requested Prescriptions Pending Prescriptions Disp Refills methadone (DOLOPHINE) 5 mg tablet 60 tablet 0 Sig: Take 1 tablet by mouth every 12 hours as needed for pain for up to 30 days. Please review and advise. Yenny Swann RN documented in this encounter [facility] 02-12-2023 Note HNO ID: [id number] Author: Tory Mares PA-C Service: ? Author Type: Physician Director Marketing Communications Type: Progress Notes Filed: 02/12/2023 9:36 AM Note Text: This note was created using Nuvyyoter. Subjective Veronica dAan is a 77 year old female. The patient primarily being seen for low back pain Patient was last seen on: 12/31/22 At that time, the treatment plan was: see notes Current Meds: Methadone last pm/ Percocet yest./ Gabapentin last pm Efficacy: helpful Side effects: tiredness TENS unit: How often used: Benefit: Physical Therapy: Last UDS: 12/31/22 Last injection: OARRS reviewed At the present time, the patient reports benefit with her present analgesic therapy. She denies any adverse effects. Since her previous visit, she denies any hospitalizations or ER visits. Otherwise, she has nothing further to discuss at this time. INTAKE PAIN ASSESSMENT 12/31/2022 02/12/2023 Are you having pain associated with your visit today? Yes, Provider notified Yes, Provider notified Pain Scales Verbal (Numeric Rating or Visual Analog Scale) Verbal (Numeric Rating or Visual Analog Scale) Pain Level 6 6 Pain Location Back-Lower Back-Lower Description Aching Dull Duration Units - - Frequency Continuous Continuous Intervention/Comfort measure Medication;Relaxation;Heat Medication;Relaxation;Heat HPI PAST MEDICAL HISTORY Diagnosis Date Ankle fracture 12/2018 right Anxiety state Bronchitis, chronic (HCC) Depression Hypothyroidism ALETHA (obstructive sleep apnea) PAST SURGICAL HISTORY Procedure Laterality Date FOOT SURGERY HX REMOVAL GALLBLADDER REMV CATARACT EXTRACAP,INSERT LENS 2019 TOTAL HIP REPLACEMENT Left 06/14/2021 Social History Tobacco Use Smoking status: Former Smokeless tobacco: Never Substance Use Topics Alcohol use: Not Currently Drug use: Never Review of Systems Constitutional: Negative for fever and unexpected weight change. Musculoskeletal: +back pain, joint pain, muscles cramps/weakness, stiffness, arthritis, sciatica, and leg pain with exertion. Objective BP 133/86 (BP Site: Left Arm, BP Position: Sitting, BP Cuff Size: Large Adult) Pulse 72 Temp 36.6 ?C (97.8 ?F) (Temporal) Resp 18 SpO2 96% Physical Exam Vitals and nursing note reviewed. Constitutional: Appearance: Normal appearance. She is well-developed, well-groomed and normal weight. HENT: Head: Normocephalic and atraumatic. Right Ear: Hearing normal. Left Ear: Hearing normal. Eyes: Conjunctiva/sclera: Conjunctivae normal. Musculoskeletal: Comments: She is using a cane for assistance with her gait which is unsteady. She has tenderness to palpation in the cervical and lumbar region with spasms noted in the trapezius and paraspinal muscles. There is tenderness to palpation in the knees bilaterally with crepitus noted. Strength 5/5 throughout. Sensation is intact to light touch throughout. There is a brace on the right foot secondary to foot drop. SLR is negative. Neurological: Mental Status: She is alert and oriented to person, place, and time. Psychiatric: Attention and Perception: Attention and perception normal. Mood and Affect: Mood and affect normal. Behavior: Behavior normal. Behavior is cooperative. Thought Content: Thought content normal. Judgment: Judgment normal. Assessment and Plan ASSESSMENT/PLAN: 1. Degeneration of intervertebral disc of lumbar region - ICD9: 722.52, ICD10: M51.36 (primary diagnosis) The OARRS report has been reviewed and is consistent with the patients medical history and medication intake. The patient's most recent drug screen has been reviewed and is appropriate and consistent with current therapy. The patient will continue with methadone, Percocet, and gabapentin. You can try taking 1/2 of a methadone 4 times a day to see if that helps with the drowsiness or 1/2 in the AM, 1/2 in the afternoon, and one in the evening. Patient was previously offered naloxone. She will continue with core strengthening and range of motion exercises. Next EKG is due 05/2023 Follow-up in office in 6 weeks time. 2. Lumbar spondylosis - ICD9: 721.3, ICD10: M47.816 3. Degeneration of intervertebral disc of cervical region - ICD9: 722.4, ICD10: M50.30 4. Osteoarthritis, generalized - ICD9: 715.00, ICD10: M15.9 5. Myofascial pain syndrome - ICD9: 729.1, ICD10: M79.18 Tory Mares PA-C [facility] 02-12-2023 Instructions Tory Mares PA-C - 02/12/2023 9:26 AM EST The OARRS report has been reviewed and is consistent with the patients medical history and medication intake. The patient's most recent drug screen has been reviewed and is appropriate and consistent with current therapy. The patient will continue with methadone, Percocet, and gabapentin. You can try taking 1/2 of a methadone 4 times a day to see if that helps with the drowsiness or 1/2 in the AM, 1/2 in the afternoon, and one in the evening. Patient was previously offered naloxone. She will continue with core strengthening and range of motion exercises. Next EKG is due 05/2023 Follow-up in office in 6 weeks time. I discussed the patient with Dr. Leal who agrees with my assessment and plan. All of the above is to improve functionality and quality of life. No evidence of drug abuse or diversion is seen at this time. documented in this encounter [facility] 02-12-2023 History of Presen t illness Narrative This note was created using Loopd Viariter. Subjective Veronica Adan is a 77 year old female. The patient primarily being seen for low back pain Patient was last seen on: 12/31/22 At that time, the treatment plan was: see notes Current Meds: Methadone last pm/ Percocet yest./ Gabapentin last pm Efficacy: helpful Side effects: tiredness TENS unit: How often used: Benefit: Physical Therapy: Last UDS: 12/31/22 Last injection: OARRS reviewed At the present time, the patient reports benefit with her present analgesic therapy. She denies any adverse effects. Since her previous visit, she denies any hospitalizations or ER visits. Otherwise, she has nothing further to discuss at this time. INTAKE PAIN ASSESSMENT 12/31/2022 02/12/2023 Are you having pain associated with your visit today? Yes, Provider notified Yes, Provider notified Pain Scales Verbal (Numeric Rating or Visual Analog Scale) Verbal (Numeric Rating or Visual Analog Scale) Pain Level 6 6 Pain Location Back-Lower Back-Lower Description Aching Dull Duration Units - - Frequency Continuous Continuous Intervention/Comfort measure Medication;Relaxation;Heat Medication;Relaxation;Heat HPI PAST MEDICAL HISTORY Diagnosis Date Ankle fracture 12/2018 right Anxiety state Bronchitis, chronic (HCC) Depression Hypothyroidism ALETHA (obstructive sleep apnea) PAST SURGICAL HISTORY Procedure Laterality Date FOOT SURGERY HX REMOVAL GALLBLADDER REMV CATARACT EXTRACAP,INSERT LENS 2019 TOTAL HIP REPLACEMENT Left 06/14/2021 Social History Tobacco Use Smoking status: Former Smokeless tobacco: Never Substance Use Topics Alcohol use: Not Currently Drug use: Never Review of Systems Constitutional: Negative for fever and unexpected weight change. Musculoskeletal: +back pain, joint pain, muscles cramps/weakness, stiffness, arthritis, sciatica, and leg pain with exertion. Objective BP 133/86 (BP Site: Left Arm, BP Position: Sitting, BP Cuff Size: Large Adult) Pulse 72 Temp 36.6 C (97.8 F) (Temporal) Resp 18 SpO2 96% Physical Exam Vitals and nursing note reviewed. Constitutional: Appearance: Normal appearance. She is well-developed, well-groomed and normal weight. HENT: Head: Normocephalic and atraumatic. Right Ear: Hearing normal. Left Ear: Hearing normal. Eyes: Conjunctiva/sclera: Conjunctivae normal. Musculoskeletal: Comments: She is using a cane for assistance with her gait which is unsteady. She has tenderness to palpation in the cervical and lumbar region with spasms noted in the trapezius and paraspinal muscles. There is tenderness to palpation in the knees bilaterally with crepitus noted. Strength 5/5 throughout. Sensation is intact to light touch throughout. There is a brace on the right foot secondary to foot drop. SLR is negative. Neurological: Mental Status: She is alert and oriented to person, place, and time. Psychiatric: Attention and Perception: Attention and perception normal. Mood and Affect: Mood and affect normal. Behavior: Behavior normal. Behavior is cooperative. Thought Content: Thought content normal. Judgment: Judgment normal. Assessment and Plan ASSESSMENT/PLAN: 1. Degeneration of intervertebral disc of lumbar region - ICD9: 722.52, ICD10: M51.36 (primary diagnosis) The OARRS report has been reviewed and is consistent with the patients medical history and medication intake. The patient's most recent drug screen has been reviewed and is appropriate and consistent with current therapy. The patient will continue with methadone, Percocet, and gabapentin. You can try taking 1/2 of a methadone 4 times a day to see if that helps with the drowsiness or 1/2 in the AM, 1/2 in the afternoon, and one in the evening. Patient was previously offered naloxone. She will continue with core strengthening and range of motion exercises. Next EKG is due 05/2023 Follow-up in office in 6 weeks time. 2. Lumbar spondylosis - ICD9: 721.3, ICD10: M47.816 3. Degeneration of intervertebral disc of cervical region - ICD9: 722.4, ICD10: M50.30 4. Osteoarthritis, generalized - ICD9: 715.00, ICD10: M15.9 5. Myofascial pain syndrome - ICD9: 729.1, ICD10: M79.18 Tory Mares PA-C documented in this encounter [facility] 01-25-2023 Miscellaneous Notes The following approved medication requests have been transmitted electronically. Requested Prescriptions Pending Prescriptions Disp Refills methadone (DOLOPHINE) 5 mg tablet 60 tablet 0 Sig: Take 1 tablet by mouth every 12 hours as needed for pain for up to 30 days. gabapentin (NEURONTIN) 300 mg capsule 60 capsule 3 Sig: Take 1 capsule by mouth two times a day for 120 days. Tory Mares PA-C Patient phones requesting refills as follows: Requested Prescriptions Pending Prescriptions Disp Refills methadone (DOLOPHINE) 5 mg tablet 60 tablet 0 Sig: Take 1 tablet by mouth every 12 hours as needed for pain for up to 30 days. gabapentin (NEURONTIN) 300 mg capsule 60 capsule 3 Sig: Take 1 capsule by mouth two times a day for 120 days. Please review and advise. Yenny Swann RN documented in this encounter [facility] 12-31-2022 Note HNO ID: [id number] Author: Tory Mares PA-C Service: ? Author Type: Physician Director Marketing Communications Type: Progress Notes Filed: 12/31/2022 8:53 AM Note Text: This note was created using CrossLoop. Subjective Veronica Adan is a 77 year old female. The patient primarily being seen for low back pain Patient was last seen on: 11/15/22 At that time, the treatment plan was: see notes Current Meds: Methadone last pm/ Percocet 2 days ago/ Gabapentin last pm Efficacy: helpful Side effects: denies TENS unit: How often used: Benefit: Physical Therapy: Last UDS: 12/31/22 Last injection: OARRS reviewed At the present time, the patient reports benefit with her present analgesic therapy. She denies any adverse effects. Since her previous visit, she denies any hospitalizations or ER visits. Otherwise, she has nothing further to discuss at this time. INTAKE PAIN ASSESSMENT 11/15/2022 12/31/2022 Are you having pain associated with your visit today? Yes, Provider notified Yes, Provider notified Pain Scales Verbal (Numeric Rating or Visual Analog Scale) Verbal (Numeric Rating or Visual Analog Scale) Pain Level 6 6 Pain Location Generalized Back-Lower Description Aching;Dull Aching Duration Units - - Frequency Intermittent Continuous Intervention/Comfort measure Medication;Heat Medication;Relaxation;Heat HPI PAST MEDICAL HISTORY Diagnosis Date Ankle fracture 12/2018 right Anxiety state Bronchitis, chronic (HCC) Depression Hypothyroidism ALETHA (obstructive sleep apnea) PAST SURGICAL HISTORY Procedure Laterality Date FOOT SURGERY HX REMOVAL GALLBLADDER REMV CATARACT EXTRACAP,INSERT LENS 2019 TOTAL HIP REPLACEMENT Left 06/14/2021 Social History Tobacco Use Smoking status: Former Smokeless tobacco: Never Substance Use Topics Alcohol use: Not Currently Drug use: Never Review of Systems Constitutional: Negative for fever and unexpected weight change. Musculoskeletal: +back pain, joint pain, muscles cramps/weakness, stiffness, arthritis, sciatica, and leg pain with exertion. Objective BP 148/84 (BP Site: Left Arm, BP Position: Sitting, BP Cuff Size: Large Adult) Pulse 71 Temp 36.2 ?C (97.2 ?F) (Temporal) Resp 18 SpO2 97% Physical Exam Vitals and nursing note reviewed. Constitutional: Appearance: Normal appearance. She is well-developed, well-groomed and normal weight. HENT: Head: Normocephalic and atraumatic. Right Ear: Hearing normal. Left Ear: Hearing normal. Eyes: Conjunctiva/sclera: Conjunctivae normal. Musculoskeletal: Comments: She is using a cane for assistance with her gait which is unsteady. She has tenderness to palpation in the cervical and lumbar region with spasms noted in the trapezius and paraspinal muscles. There is tenderness to palpation in the knees bilaterally with crepitus noted. Strength 5/5 throughout. Sensation is intact to light touch throughout. There is a brace on the right foot secondary to foot drop. SLR is negative. Neurological: Mental Status: She is alert and oriented to person, place, and time. Psychiatric: Attention and Perception: Attention and perception normal. Mood and Affect: Mood and affect normal. Behavior: Behavior normal. Behavior is cooperative. Thought Content: Thought content normal. Judgment: Judgment normal. Assessment and Plan ASSESSMENT/PLAN: 1. Degeneration of intervertebral disc of lumbar region - ICD9: 722.52, ICD10: M51.36 (primary diagnosis) The OARRS report has been reviewed and is consistent with the patients medical history and medication intake. The patient underwent a random drug screen at today's office visit. The patient will continue with methadone, Percocet, and gabapentin. Patient was previously offered naloxone. She will continue with core strengthening and range of motion exercises. Next EKG is due 05/2023 Follow-up in office in 6 weeks time. - TOXASSURE? FLEX 23, URINE 2. Lumbar spondylosis - ICD9: 721.3, ICD10: M47.816 3. Degeneration of intervertebral disc of cervical region - ICD9: 722.4, ICD10: M50.30 4. Osteoarthritis, generalized - ICD9: 715.00, ICD10: M15.9 5. 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 FLEX 23, URINE Tory Mares PA-C [facility] 12-31-2022 Instructions Tory Mares PA-C - 12/31/2022 8:48 AM EDT The OARRS report has been reviewed and is consistent with the patients medical history and medication intake. The patient underwent a random drug screen at today's office visit. The patient will continue with methadone, Percocet, and gabapentin. Patient was previously offered naloxone. She will continue with core strengthening and range of motion exercises. Next EKG is due 05/2023 Follow-up in office in 6 weeks time. I discussed the patient with Dr. Leal who agrees with my assessment and plan. All of the above is to improve functionality and quality of life. No evidence of drug abuse or diversion is seen at this time. documented in this encounter [facility] 12-31-2022 History of Presen t illness Narrative This note was created using CrossLoop. Subjective Veronica Adan is a 77 year old female. The patient primarily being seen for low back pain Patient was last seen on: 11/15/22 At that time, the treatment plan was: see notes Current Meds: Methadone last pm/ Percocet 2 days ago/ Gabapentin last pm Efficacy: helpful Side effects: denies TENS unit: How often used: Benefit: Physical Therapy: Last UDS: 12/31/22 Last injection: OARRS reviewed At the present time, the patient reports benefit with her present analgesic therapy. She denies any adverse effects. Since her previous visit, she denies any hospitalizations or ER visits. Otherwise, she has nothing further to discuss at this time. INTAKE PAIN ASSESSMENT 11/15/2022 12/31/2022 Are you having pain associated with your visit today? Yes, Provider notified Yes, Provider notified Pain Scales Verbal (Numeric Rating or Visual Analog Scale) Verbal (Numeric Rating or Visual Analog Scale) Pain Level 6 6 Pain Location Generalized Back-Lower Description Aching;Dull Aching Duration Units - - Frequency Intermittent Continuous Intervention/Comfort measure Medication;Heat Medication;Relaxation;Heat HPI PAST MEDICAL HISTORY Diagnosis Date Ankle fracture 12/2018 right Anxiety state Bronchitis, chronic (HCC) Depression Hypothyroidism ALETHA (obstructive sleep apnea) PAST SURGICAL HISTORY Procedure Laterality Date FOOT SURGERY HX REMOVAL GALLBLADDER REMV CATARACT EXTRACAP,INSERT LENS 2019 TOTAL HIP REPLACEMENT Left 06/14/2021 Social History Tobacco Use Smoking status: Former Smokeless tobacco: Never Substance Use Topics Alcohol use: Not Currently Drug use: Never Review of Systems Constitutional: Negative for fever and unexpected weight change. Musculoskeletal: +back pain, joint pain, muscles cramps/weakness, stiffness, arthritis, sciatica, and leg pain with exertion. Objective BP 148/84 (BP Site: Left Arm, BP Position: Sitting, BP Cuff Size: Large Adult) Pulse 71 Temp 36.2 C (97.2 F) (Temporal) Resp 18 SpO2 97% Physical Exam Vitals and nursing note reviewed. Constitutional: Appearance: Normal appearance. She is well-developed, well-groomed and normal weight. HENT: Head: Normocephalic and atraumatic. Right Ear: Hearing normal. Left Ear: Hearing normal. Eyes: Conjunctiva/sclera: Conjunctivae normal. Musculoskeletal: Comments: She is using a cane for assistance with her gait which is unsteady. She has tenderness to palpation in the cervical and lumbar region with spasms noted in the trapezius and paraspinal muscles. There is tenderness to palpation in the knees bilaterally with crepitus noted. Strength 5/5 throughout. Sensation is intact to light touch throughout. There is a brace on the right foot secondary to foot drop. SLR is negative. Neurological: Mental Status: She is alert and oriented to person, place, and time. Psychiatric: Attention and Perception: Attention and perception normal. Mood and Affect: Mood and affect normal. Behavior: Behavior normal. Behavior is cooperative. Thought Content: Thought content normal. Judgment: Judgment normal. Assessment and Plan ASSESSMENT/PLAN: 1. Degeneration of intervertebral disc of lumbar region - ICD9: 722.52, ICD10: M51.36 (primary diagnosis) The OARRS report has been reviewed and is consistent with the patients medical history and medication intake. The patient underwent a random drug screen at today's office visit. The patient will continue with methadone, Percocet, and gabapentin. Patient was previously offered naloxone. She will continue with core strengthening and range of motion exercises. Next EKG is due 05/2023 Follow-up in office in 6 weeks time. - TOXASSURE FLEX 23, URINE 2. Lumbar spondylosis - ICD9: 721.3, ICD10: M47.816 3. Degeneration of intervertebral disc of cervical region - ICD9: 722.4, ICD10: M50.30 4. Osteoarthritis, generalized - ICD9: 715.00, ICD10: M15.9 5. Myofascial pain syndrome - ICD9: 729.1, ICD10: M79.18 6. 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 Author Type: Physician Director Marketing Communications Type: Progress Notes Filed: 11/15/2022 10:03 AM Note Text: This note was created using Loopd Viar[employer]. Subjective Veronica Adan is a 77 year old female. The patient primarily being seen for generalized pain Patient was last seen on: 10/02/22 At that time, the treatment plan was: see notes Current Meds: Methadone - last dose last pm, Percocet - few days ago, Gabapentin - last pm Efficacy: help Side effects: none TENS unit: no How often used: Benefit: Physical Therapy: 2021 - at [place] Last UDS: 07/10/22 Last injection: none OARRS reviewed At the present time, the patient reports benefit with her present analgesic therapy. She denies any adverse effects. Since her previous visit, she denies any hospitalizations or ER visits. 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 INTAKE PAIN ASSESSMENT 10/02/2022 11/15/2022 Are you having pain associated with your visit today? Yes, Provider notified Yes, Provider notified Pain Scales Verbal (Numeric Rating or Visual Analog Scale) Verbal (Numeric Rating or Visual Analog Scale) Pain Level 6 6 Pain Location Generalized Generalized Description Aching;Dull Aching;Dull Duration Units Years - Frequency Intermittent Intermittent Intervention/Comfort measure Medication;Heat Medication;Heat HPI PAST MEDICAL HISTORY Diagnosis Date Ankle fracture 12/2018 right Anxiety state Bronchitis, chronic (HCC) Depression Hypothyroidism ALETHA (obstructive sleep apnea) PAST SURGICAL HISTORY Procedure Laterality Date FOOT SURGERY HX REMOVAL GALLBLADDER REMV CATARACT EXTRACAP,INSERT LENS 2019 TOTAL HIP REPLACEMENT Left 06/14/2021 Social History Tobacco Use Smoking status: Former Smokeless tobacco: Never Substance Use Topics Alcohol use: Not Currently Drug use: Never Review of Systems Constitutional: Negative for fever and unexpected weight change. Musculoskeletal: +back pain, joint pain, muscles cramps/weakness, stiffness, arthritis, sciatica, and leg pain with exertion. Objective BP 105/65 (BP Site: Left Arm, BP Position: Sitting, BP Cuff Size: Large Adult) Pulse 85 Temp 36.4 ?C (97.5 ?F) (Temporal) Ht 157.5 cm (5' 2 ) Wt 69.4 kg (153 lb) SpO2 94% BMI 27.98 kg/m? Physical Exam Vitals and nursing note reviewed. Constitutional: Appearance: Normal appearance. She is well-developed, well-groomed and normal weight. HENT: Head: Normocephalic and atraumatic. Right Ear: Hearing normal. Left Ear: Hearing normal. Eyes: Conjunctiva/sclera: Conjunctivae normal. Musculoskeletal: Comments: She is using a cane for assistance with her gait which is unsteady. She has tenderness to palpation in the cervical and lumbar region with spasms noted in the trapezius and paraspinal muscles. There is tenderness to palpation in the knees bilaterally with crepitus noted. Strength 5/5 throughout. Sensation is intact to light touch throughout. There is a brace on the right foot secondary to foot drop. SLR is negative. Neurological: Mental Status: She is alert and oriented to person, place, and time. Psychiatric: Attention and Perception: Attention and perception normal. Mood and Affect: Mood and affect normal. Behavior: Behavior normal. Behavior is cooperative. Thought Content: Thought content normal. Judgment: Judgment normal. Assessment and Plan ASSESSMENT/PLAN: 1. Degeneration of intervertebral disc of lumbar region - ICD9: 722.52, ICD10: M51.36 (primary diagnosis) The OARRS report has been reviewed and is consistent with the patients medical history and medication intake. The patient will continue with methadone, Percocet, and gabapentin. Patient was previously offered naloxone. She will continue with core strengthening and range of motion exercises. Next EKG is due 05/2023 Follow-up in office in 6 weeks time - METHADONE 5 MG TABLET 2. Lumbar spondylosis - ICD9: 721.3, ICD10: M47.816 3. Degeneration of intervertebral disc of cervical region - ICD9: 722.4, ICD10: M50.30 4. Osteoarthritis, generalized - ICD9: 715.00, ICD10: M15.9 5. Myofascial pain syndrome - ICD9: 729.1, ICD10: M79.18 Tory Mares PA-C [facility] 10-17-2022 Miscellaneous Notes The following approved medication requests have been transmitted electronically. Requested Prescriptions Pending Prescriptions Disp Refills methadone (DOLOPHINE) 5 mg tablet 60 tablet 0 Sig: Take 1 tablet by mouth every 12 hours as needed for pain for up to 30 days. Do not start before October 19, 2022. Tory Mares PA-C Patient phones requesting refills as follows: Requested Prescriptions Pending Prescriptions Disp Refills methadone (DOLOPHINE) 5 mg tablet 60 tablet 0 Sig: Take 1 tablet by mouth every 12 hours as needed for pain for up to 30 days. Do not start before October 19, 2022. Please review and advise. Yenny Swann RN documented in this encounter [facility] 10-02-2022 Note HNO ID: [id number] Author: Tory Mares PA-C Service: ? Author Type: Physician Director Marketing Communications Type: Progress Notes Filed: 10/02/2022 10:14 AM Note Text: This note was created using [employer]. Subjective Veronica Adan is a 77 year old female. The patient primarily being seen for generalized pain Patient was last seen on: 07/10/22 At that time, the treatment plan was: see notes Current Meds: Methadone - last dose last pm, Percocet - this am, Gabapentin - last pm Efficacy: help Side effects: none TENS unit: no How often used: Benefit: Physical Therapy: 2021 - at [facility] Last UDS: 07/10/22 Last injection: none OARRS reviewed At the present time, the patient reports benefit with her present analgesic therapy. She denies any adverse effects. Since her previous visit, she denies any hospitalizations or ER visits. Otherwise, she has nothing further to discuss at this time. INTAKE PAIN ASSESSMENT 08/21/2022 10/02/2022 Are you having pain associated with your visit today? Yes, Provider notified Yes, Provider notified Pain Scales Verbal (Numeric Rating or Visual Analog Scale) Verbal (Numeric Rating or Visual Analog Scale) Pain Level 6 6 Pain Location Generalized Generalized Description Aching;Dull Aching;Dull Duration Units - Years Frequency Continuous Intermittent Intervention/Comfort measure Medication;Relaxation;Heat Medication;Heat HPI PAST MEDICAL HISTORY Diagnosis Date Ankle fracture 12/2018 right Anxiety state Bronchitis, chronic (HCC) Depression Hypothyroidism ALETHA (obstructive sleep apnea) PAST SURGICAL HISTORY Procedure Laterality Date FOOT SURGERY HX REMOVAL GALLBLADDER REMV CATARACT EXTRACAP,INSERT LENS 2019 TOTAL HIP REPLACEMENT Left 06/14/2021 Social History Tobacco Use Smoking status: Former Smokeless tobacco: Never Substance Use Topics Alcohol use: Not Currently Drug use: Never Review of Systems Constitutional: Negative for fever and unexpected weight change. Musculoskeletal: +back pain, joint pain, muscles cramps/weakness, stiffness, arthritis, sciatica, and leg pain with exertion. Objective BP 123/62 (BP Site: Left Arm, BP Position: Sitting, BP Cuff Size: Large Adult) Pulse 82 Temp (!) 35.9 ?C (96.6 ?F) (Temporal) Ht 157.5 cm (5' 2 ) Wt 63 kg (139 lb) SpO2 97% BMI 25.42 kg/m? Physical Exam Vitals and nursing note reviewed. Constitutional: Appearance: Normal appearance. She is well-developed, well-groomed and normal weight. HENT: Head: Normocephalic and atraumatic. Right Ear: Hearing normal. Left Ear: Hearing normal. Eyes: Conjunctiva/sclera: Conjunctivae normal. Musculoskeletal: Comments: She is using a cane for assistance with her gait. She has tenderness to palpation in the cervical and lumbar region with spasms noted in the trapezius and paraspinal muscles. There is tenderness to palpation in the knees bilaterally with crepitus noted. Strength 5/5 throughout. Sensation is intact to light touch throughout. There is a brace on the right foot secondary to foot drop. SLR is negative. Neurological: Mental Status: She is alert and oriented to person, place, and time. Psychiatric: Attention and Perception: Attention and perception normal. Mood and Affect: Mood and affect normal. Behavior: Behavior normal. Behavior is cooperative. Thought Content: Thought content normal. Judgment: Judgment normal. Assessment and Plan ASSESSMENT/PLAN: 1. Degeneration of intervertebral disc of lumbar region - ICD9: 722.52, ICD10: M51.36 (primary diagnosis) The OARRS report has been reviewed and is consistent with the patients medical history and medication intake. The patient will continue with methadone, Percocet, and gabapentin. Patient was previously offered naloxone. She will continue with core strengthening and range of motion exercises. Next EKG is due 05/2023 Follow-up in office in 6 weeks time. 2. Lumbar spondylosis - ICD9: 721.3, ICD10: M47.816 3. Degeneration of intervertebral disc of cervical region - ICD9: 722.4, ICD10: M50.30 4. Osteoarthritis, generalized - ICD9: 715.00, ICD10: M15.9 5. Myofascial pain syndrome - ICD9: 729.1, ICD10: M79.18 Tory Mares PA-C [facility] 10-02-2022 Instructions Tory aMres PA-C - 10/02/2022 10:09 AM EDT The OARRS report has been reviewed and is consistent with the patients medical history and medication intake. The patient will continue with methadone, Percocet, and gabapentin. Patient was previously offered naloxone. She will continue with core strengthening and range of motion exercises. Next EKG is due 05/2023 Follow-up in office in 6 weeks time. I discussed the patient with Dr. Leal who agrees with my assessment and plan. All of the above is to improve functionality and quality of life. No evidence of drug abuse or diversion is seen at this time. documented in this encounter [facility] 10-02-2022 History of Presen t illness Narrative This note was created using CrossLoop. Subjective Veronica Adan is a 77 year old female. The patient primarily being seen for generalized pain Patient was last seen on: 07/10/22 At that time, the treatment plan was: see notes Current Meds: Methadone - last dose last pm, Percocet - this am, Gabapentin - last pm Efficacy: help Side effects: none TENS unit: no How often used: Benefit: Physical Therapy: 2021 - at [facility] Last UDS: 07/10/22 Last injection: none OARRS reviewed At the present time, the patient reports benefit with her present analgesic therapy. She denies any adverse effects. Since her previous visit, she denies any hospitalizations or ER visits. Otherwise, she has nothing further to discuss at this time. INTAKE PAIN ASSESSMENT 08/21/2022 10/02/2022 Are you having pain associated with your visit today? Yes, Provider notified Yes, Provider notified Pain Scales Verbal (Numeric Rating or Visual Analog Scale) Verbal (Numeric Rating or Visual Analog Scale) Pain Level 6 6 Pain Location Generalized Generalized Description Aching;Dull Aching;Dull Duration Units - Years Frequency Continuous Intermittent Intervention/Comfort measure Medication;Relaxation;Heat Medication;Heat HPI PAST MEDICAL HISTORY Diagnosis Date Ankle fracture 12/2018 right Anxiety state Bronchitis, chronic (HCC) Depression Hypothyroidism ALETHA (obstructive sleep apnea) PAST SURGICAL HISTORY Procedure Laterality Date FOOT SURGERY HX REMOVAL GALLBLADDER REMV CATARACT EXTRACAP,INSERT LENS 2019 TOTAL HIP REPLACEMENT Left 06/14/2021 Social History Tobacco Use Smoking status: Former Smokeless tobacco: Never Substance Use Topics Alcohol use: Not Currently Drug use: Never Review of Systems Constitutional: Negative for fever and unexpected weight change. Musculoskeletal: +back pain, joint pain, muscles cramps/weakness, stiffness, arthritis, sciatica, and leg pain with exertion. Objective BP 123/62 (BP Site: Left Arm, BP Position: Sitting, BP Cuff Size: Large Adult) Pulse 82 Temp (!) 35.9 C (96.6 F) (Temporal) Ht 157.5 cm (5' 2 ) Wt 63 kg (139 lb) SpO2 97% BMI 25.42 kg/m Physical Exam Vitals and nursing note reviewed. Constitutional: Appearance: Normal appearance. She is well-developed, well-groomed and normal weight. HENT: Head: Normocephalic and atraumatic. Right Ear: Hearing normal. Left Ear: Hearing normal. Eyes: Conjunctiva/sclera: Conjunctivae normal. Musculoskeletal: Comments: She is using a cane for assistance with her gait. She has tenderness to palpation in the cervical and lumbar region with spasms noted in the trapezius and paraspinal muscles. There is tenderness to palpation in the knees bilaterally with crepitus noted. Strength 5/5 throughout. Sensation is intact to light touch throughout. There is a brace on the right foot secondary to foot drop. SLR is negative. Neurological: Mental Status: She is alert and oriented to person, place, and time. Psychiatric: Attention and Perception: Attention and perception normal. Mood and Affect: Mood and affect normal. Behavior: Behavior normal. Behavior is cooperative. Thought Content: Thought content normal. Judgment: Judgment normal. Assessment and Plan ASSESSMENT/PLAN: 1. Degeneration of intervertebral disc of lumbar region - ICD9: 722.52, ICD10: M51.36 (primary diagnosis) The OARRS report has been reviewed and is consistent with the patients medical history and medication intake. The patient will continue with methadone, Percocet, and gabapentin. Patient was previously offered naloxone. She will continue with core strengthening and range of motion exercises. Next EKG is due 05/2023 Follow-up in office in 6 weeks time. 2. Lumbar spondylosis - ICD9: 721.3, ICD10: M47.816 3. Degeneration of intervertebral disc of cervical region - ICD9: 722.4, ICD10: M50.30 4. Osteoarthritis, generalized - ICD9: 715.00, ICD10: M15.9 5. Myofascial pain syndrome - ICD9: 729.1, ICD10: M79.18 Tory Mares PA-C documented in this encounter [facility] 09-19-2022 Miscellaneous Notes The following approved medication requests have been transmitted electronically. Requested Prescriptions Pending Prescriptions Disp Refills methadone (DOLOPHINE) 5 mg tablet 60 tablet 0 Sig: Take 1 tablet by mouth every 12 hours as needed for pain for up to 30 days. Tory Mares PA-C Patient phones requesting refills as follows: Requested Prescriptions Pending Prescriptions Disp Refills methadone (DOLOPHINE) 5 mg tablet 60 tablet 0 Sig: Take 1 tablet by mouth every 12 hours as needed for pain for up to 30 days. Please review and advise. Yenny Swann RN documented in this encounter [facility] 08-21-2022 Note HNO ID: [id number] Author: Tory Mares PA-C Service: ? Author Type: Physician Director Marketing Communications Type: Progress Notes Filed: 08/21/2022 10:07 AM Note Text: This note was created using Loopd Viar[employer]. Subjective Veronica Adan is a 77 year old female. The patient primarily being seen for generalized pain Patient was last seen on: 07/10/22 At that time, the treatment plan was: see notes Current Meds: Methadone last pm/ Percocet 2 days ago/ Gabapentin last pm Efficacy: helpful Side effects: denies TENS unit: How often used: Benefit: Physical Therapy: 2021 Last UDS: 07/10/22 Last injection: OARRS reviewed At the present time, the patient reports benefit with her present analgesic therapy. She denies any adverse effects. Since her previous visit, she denies any hospitalizations or ER visits. Otherwise, she has nothing further to discuss at this time. INTAKE PAIN ASSESSMENT 07/10/2022 08/21/2022 Are you having pain associated with your visit today? Yes, Provider notified Yes, Provider notified Pain Scales Verbal (Numeric Rating or Visual Analog Scale) Verbal (Numeric Rating or Visual Analog Scale) Pain Level 5 6 Pain Location Generalized Generalized Description Aching;Dull;Sharp Aching;Dull Duration Units Years - Frequency Intermittent Continuous Intervention/Comfort measure Medication;Heat Medication;Relaxation;Heat PAST MEDICAL HISTORY Diagnosis Date Ankle fracture 12/2018 right Anxiety state Bronchitis, chronic (HCC) Depression Hypothyroidism ALETHA (obstructive sleep apnea) PAST SURGICAL HISTORY Procedure Laterality Date FOOT SURGERY HX REMOVAL GALLBLADDER REMV CATARACT EXTRACAP,INSERT LENS 2019 TOTAL HIP REPLACEMENT Left 06/14/2021 Social History Tobacco Use Smoking status: Former Smokeless tobacco: Never Substance Use Topics Alcohol use: Not Currently Drug use: Never HPI Review of Systems Constitutional: Negative for fever and unexpected weight change. Musculoskeletal: +back pain, joint pain, muscles cramps/weakness, stiffness, arthritis, sciatica, and leg pain with exertion. Objective BP 139/65 (BP Site: Left Arm, BP Position: Sitting, BP Cuff Size: Large Adult) Pulse 71 Temp 36.6 ?C (97.8 ?F) (Temporal) Resp 18 SpO2 95% Physical Exam Vitals and nursing note reviewed. Constitutional: Appearance: Normal appearance. She is well-developed, well-groomed and normal weight. HENT: Head: Normocephalic and atraumatic. Right Ear: Hearing normal. Left Ear: Hearing normal. Eyes: Conjunctiva/sclera: Conjunctivae normal. Musculoskeletal: Comments: She is using a cane for assistance with her gait. She has tenderness to palpation in the cervical and lumbar region with spasms noted in the trapezius and paraspinal muscles. There is tenderness to palpation in the knees bilaterally with crepitus noted. Strength 5/5 throughout. Sensation is intact to light touch throughout. There is a brace on the right foot secondary to foot drop. SLR is negative. Neurological: Mental Status: She is alert and oriented to person, place, and time. Psychiatric: Attention and Perception: Attention and perception normal. Mood and Affect: Mood and affect normal. Behavior: Behavior normal. Behavior is cooperative. Thought Content: Thought content normal. Judgment: Judgment normal. Assessment and Plan ASSESSMENT/PLAN: 1. Degeneration of intervertebral disc of lumbar region - ICD9: 722.52, ICD10: M51.36 (primary diagnosis) The OARRS report has been reviewed and is consistent with the patients medical history and medication intake. The patient's most recent urine drug screen has been reviewed and is appropriate and consistent with current therapy. Her percocet was negative but she is using this as needed and not filling it every 30 days. The patient will continue with methadone, Percocet, and gabapentin. Patient was previously offered naloxone. She will continue with core strengthening and range of motion exercises. Next EKG is due 05/2023 Follow-up in office in 6 weeks time. 2. Lumbar spondylosis - ICD9: 721.3, ICD10: M47.816 3. Degeneration of intervertebral disc of cervical region - ICD9: 722.4, ICD10: M50.30 4. Osteoarthritis, generalized - ICD9: 715.00, ICD10: M15.9 5. Myofascial pain syndrome - ICD9: 729.1, ICD10: M79.18 Tory Mares PA-C [facility] 08-21-2022 Instructions Tory Mares PA-C - 08/21/2022 9:57 AM EDT The OARRS report has been reviewed and is consistent with the patients medical history and medication intake. The patient's most recent urine drug screen has been reviewed and is appropriate and consistent with current therapy. Her percocet was negative but she is using this as needed and not filling it every 30 days. The patient will continue with methadone, Percocet, and gabapentin. Patient was previously offered naloxone. She will continue with core strengthening and range of motion exercises. Next EKG is due 05/2023 Follow-up in office in 6 weeks time. I will discuss the patient with Dr. Leal when he returns to the office. All of the above is to improve functionality and quality of life. No evidence of drug abuse or diversion is seen at this time. documented in this encounter [facility] 08-21-2022 History of Presen t illness Narrative This note was created using CrossLoop. Adryan Adan is a 77 year old female. The patient primarily being seen for generalized pain Patient was last seen on: 07/10/22 At that time, the treatment plan was: see notes Current Meds: Methadone last pm/ Percocet 2 days ago/ Gabapentin last pm Efficacy: helpful Side effects: denies TENS unit: How often used: Benefit: Physical Therapy: 2021 Last UDS: 07/10/22 Last injection: OARRS reviewed At the present time, the patient reports benefit with her present analgesic therapy. She denies any adverse effects. Since her previous visit, she denies any hospitalizations or ER visits. Otherwise, she has nothing further to discuss at this time. INTAKE PAIN ASSESSMENT 07/10/2022 08/21/2022 Are you having pain associated with your visit today? Yes, Provider notified Yes, Provider notified Pain Scales Verbal (Numeric Rating or Visual Analog Scale) Verbal (Numeric Rating or Visual Analog Scale) Pain Level 5 6 Pain Location Generalized Generalized Description Aching;Dull;Sharp Aching;Dull Duration Units Years - Frequency Intermittent Continuous Intervention/Comfort measure Medication;Heat Medication;Relaxation;Heat PAST MEDICAL HISTORY Diagnosis Date Ankle fracture 12/2018 right Anxiety state Bronchitis, chronic (HCC) Depression Hypothyroidism ALETHA (obstructive sleep apnea) PAST SURGICAL HISTORY Procedure Laterality Date FOOT SURGERY HX REMOVAL GALLBLADDER REMV CATARACT EXTRACAP,INSERT LENS 2019 TOTAL HIP REPLACEMENT Left 06/14/2021 Social History Tobacco Use Smoking status: Former Smokeless tobacco: Never Substance Use Topics Alcohol use: Not Currently Drug use: Never HPI Review of Systems Constitutional: Negative for fever and unexpected weight change. Musculoskeletal: +back pain, joint pain, muscles cramps/weakness, stiffness, arthritis, sciatica, and leg pain with exertion. Objective BP 139/65 (BP Site: Left Arm, BP Position: Sitting, BP Cuff Size: Large Adult) Pulse 71 Temp 36.6 C (97.8 F) (Temporal) Resp 18 SpO2 95% Physical Exam Vitals and nursing note reviewed. Constitutional: Appearance: Normal appearance. She is well-developed, well-groomed and normal weight. HENT: Head: Normocephalic and atraumatic. Right Ear: Hearing normal. Left Ear: Hearing normal. Eyes: Conjunctiva/sclera: Conjunctivae normal. Musculoskeletal: Comments: She is using a cane for assistance with her gait. She has tenderness to palpation in the cervical and lumbar region with spasms noted in the trapezius and paraspinal muscles. There is tenderness to palpation in the knees bilaterally with crepitus noted. Strength 5/5 throughout. Sensation is intact to light touch throughout. There is a brace on the right foot secondary to foot drop. SLR is negative. Neurological: Mental Status: She is alert and oriented to person, place, and time. Psychiatric: Attention and Perception: Attention and perception normal. Mood and Affect: Mood and affect normal. Behavior: Behavior normal. Behavior is cooperative. Thought Content: Thought content normal. Judgment: Judgment normal. Assessment and Plan ASSESSMENT/PLAN: 1. Degeneration of intervertebral disc of lumbar region - ICD9: 722.52, ICD10: M51.36 (primary diagnosis) The OARRS report has been reviewed and is consistent with the patients medical history and medication intake. The patient's most recent urine drug screen has been reviewed and is appropriate and consistent with current therapy. Her percocet was negative but she is using this as needed and not filling it every 30 days. The patient will continue with methadone, Percocet, and gabapentin. Patient was previously offered naloxone. She will continue with core strengthening and range of motion exercises. Next EKG is due 05/2023 Follow-up in office in 6 weeks time. 2. Lumbar spondylosis - ICD9: 721.3, ICD10: M47.816 3. Degeneration of intervertebral disc of cervical region - ICD9: 722.4, ICD10: M50.30 4. Osteoarthritis, generalized - ICD9: 715.00, ICD10: M15.9 5. Myofascial pain syndrome - ICD9: 729.1, ICD10: M79.18 Tory Mares PA-C documented in this encounter [facility] 08-14-2022 Miscellaneous Notes The following approved medication requests have been transmitted electronically. Requested Prescriptions Pending Prescriptions Disp Refills gabapentin (NEURONTIN) 300 mg capsule 180 capsule 1 Sig: Take 1 capsule by mouth twice daily for 180 days. Tory Mares PA-C Patient phones requesting refills as follows: Requested Prescriptions Pending Prescriptions Disp Refills gabapentin (NEURONTIN) 300 mg capsule 180 capsule 1 Sig: Take 1 capsule by mouth twice daily for 180 days. Please review and advise. Yenny Swnan RN documented in this encounter [facility] 07-10-2022 Note HNO ID: [id number] Author: Tory Mares PA-C Service: ? Author Type: Physician Director Marketing Communications Type: Progress Notes Filed: 07/10/2022 9:52 AM Note Text: This note was created using CrossLoop. Subjective Veronica Adan is a 76 year old female. The patient primarily being seen for generalized pain Patient was last seen on: 05/28/22 At that time, the treatment plan was: see notes Current Meds: Methadone - last dose last pm, Percocet - yesterday, Gabapentin - this am Efficacy: help Side effects: head itching TENS unit: no - never had one How often used: Benefit: Physical Therapy: 2021 - Last UDS: 07/10/22 Last injection: none OARRS reviewed At the present time, the patient reports benefit with her present analgesic therapy. She states the medications make her head itch. Since her previous visit, she denies any hospitalizations or ER visits. Otherwise, she has nothing further to discuss at this time. INTAKE PAIN ASSESSMENT 05/28/2022 07/10/2022 Are you having pain associated with your visit today? Yes, Provider notified Yes, Provider notified Pain Scales Verbal (Numeric Rating or Visual Analog Scale) Verbal (Numeric Rating or Visual Analog Scale) Pain Level 5 5 Pain Location Generalized Generalized Description Dull Aching;Dull;Sharp Duration Units - Years Frequency Continuous Intermittent Intervention/Comfort measure Medication;Relaxation;Heat Medication;Heat HPI PAST MEDICAL HISTORY Diagnosis Date Ankle fracture 12/2018 right Anxiety state Bronchitis, chronic (HCC) Depression Hypothyroidism ALETHA (obstructive sleep apnea) PAST SURGICAL HISTORY Procedure Laterality Date FOOT SURGERY HX REMOVAL GALLBLADDER REMV CATARACT EXTRACAP,INSERT LENS 2019 TOTAL HIP REPLACEMENT Left 06/14/2021 Social History Tobacco Use Smoking status: Former Smokeless tobacco: Never Substance Use Topics Alcohol use: Not Currently Drug use: Never Review of Systems Constitutional: Negative for fever and unexpected weight change. Musculoskeletal: +back pain, joint pain, muscles cramps/weakness, stiffness, arthritis, sciatica, and leg pain with exertion. Objective BP 134/62 (BP Site: Left Arm, BP Position: Sitting, BP Cuff Size: Large Adult) Pulse 76 Temp (!) 35.8 ?C (96.4 ?F) (Temporal) Resp 20 Ht 157.5 cm (5' 2 ) Wt 62.6 kg (138 lb) SpO2 94% BMI 25.24 kg/m? Physical Exam Vitals and nursing note reviewed. Constitutional: Appearance: Normal appearance. She is well-developed, well-groomed and normal weight. HENT: Head: Normocephalic and atraumatic. Right Ear: Hearing normal. Left Ear: Hearing normal. Eyes: Conjunctiva/sclera: Conjunctivae normal. Musculoskeletal: Comments: She is using a cane for assistance with her gait. She has tenderness to palpation in the cervical and lumbar region with spasms noted in the trapezius and paraspinal muscles. There is tenderness to palpation in the knees bilaterally with crepitus noted. Strength 5/5 throughout. Sensation is intact to light touch throughout. There is a brace on the right foot secondary to foot drop. SLR is negative. Neurological: Mental Status: She is alert and oriented to person, place, and time. Psychiatric: Attention and Perception: Attention and perception normal. Mood and Affect: Mood and affect normal. Behavior: Behavior normal. Behavior is cooperative. Thought Content: Thought content normal. Judgment: Judgment normal. Assessment and Plan ASSESSMENT/PLAN: 1. Degeneration of intervertebral disc of lumbar region - ICD9: 722.52, ICD10: M51.36 (primary diagnosis) The OARRS report has been reviewed and is consistent with the patients medical history and medication intake. The patient underwent a random UDS at today's office visit. The patient will continue with methadone, Percocet, and gabapentin. Patient was previously offered naloxone. She will continue with core strengthening and range of motion exercises. Get us a copy of the 2022 EKG report. The one we have is from 03/20/21. If they do not have a more up to date one, call us and we'll give you an order for a new one. Follow-up in office in 6 weeks time. - TOXASSURE? FLEX 23, URINE - METHADONE 5 MG TABLET - OXYCODONE-ACETAMINOPHEN 5 MG-325 MG TABLET (Two stable chronic illnesses/prescription drug management) 2. Lumbar spondylosis - ICD9: 721.3, ICD10: M47.816 3. Degeneration of intervertebral disc of cervical region - ICD9: 722.4, ICD10: M50.30 4. Osteoarthritis, generalized - ICD9: 715.00, ICD10: M15.9 5. 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 FLEX 23, URINE Tory Mares PA-C [facility] 07-10-2022 Instructions Tory Mares PA-C - 07/10/2022 9:43 AM EDT The OARRS report has been reviewed and is consistent with the patients medical history and medication intake. The patient underwent a random UDS at today's office visit. The patient will continue with methadone, Percocet, and gabapentin. Patient was previously offered naloxone. She will continue with core strengthening and range of motion exercises. Get us a copy of the 2022 EKG report. The one we have is from 03/20/21. If they do not have a more up to date one, call us and we'll give you an order for a new one. Follow-up in office in 6 weeks time. I discussed the patient with Dr. Leal who agrees with my assessment and plan. All of the above is to improve functionality and quality of life. No evidence of drug abuse or diversion is seen at this time. documented in this encounter [facility] 07-10-2022 History of Presen t illness Narrative This note was created using [employer]d [employer]. Subjective Veronica Adan is a 76 year old female. The patient primarily being seen for generalized pain Patient was last seen on: 05/28/22 At that time, the treatment plan was: see notes Current Meds: Methadone - last dose last pm, Percocet - yesterday, Gabapentin - this am Efficacy: help Side effects: head itching TENS unit: no - never had one How often used: Benefit: Physical Therapy: 2021 - [facility] Last UDS: 07/10/22 Last injection: none OARRS reviewed At the present time, the patient reports benefit with her present analgesic therapy. She states the medications make her head itch. Since her previous visit, she denies any hospitalizations or ER visits. Otherwise, she has nothing further to discuss at this time. INTAKE PAIN ASSESSMENT 05/28/2022 07/10/2022 Are you having pain associated with your visit today? Yes, Provider notified Yes, Provider notified Pain Scales Verbal (Numeric Rating or Visual Analog Scale) Verbal (Numeric Rating or Visual Analog Scale) Pain Level 5 5 Pain Location Generalized Generalized Description Dull Aching;Dull;Sharp Duration Units - Years Frequency Continuous Intermittent Intervention/Comfort measure Medication;Relaxation;Heat Medication;Heat HPI PAST MEDICAL HISTORY Diagnosis Date Ankle fracture 12/2018 right Anxiety state Bronchitis, chronic (HCC) Depression Hypothyroidism ALETHA (obstructive sleep apnea) PAST SURGICAL HISTORY Procedure Laterality Date FOOT SURGERY HX REMOVAL GALLBLADDER REMV CATARACT EXTRACAP,INSERT LENS 2019 TOTAL HIP REPLACEMENT Left 06/14/2021 Social History Tobacco Use Smoking status: Former Smokeless tobacco: Never Substance Use Topics Alcohol use: Not Currently Drug use: Never Review of Systems Constitutional: Negative for fever and unexpected weight change. Musculoskeletal: +back pain, joint pain, muscles cramps/weakness, stiffness, arthritis, sciatica, and leg pain with exertion. Objective BP 134/62 (BP Site: Left Arm, BP Position: Sitting, BP Cuff Size: Large Adult) Pulse 76 Temp (!) 35.8 C (96.4 F) (Temporal) Resp 20 Ht 157.5 cm (5' 2 ) Wt 62.6 kg (138 lb) SpO2 94% BMI 25.24 kg/m Physical Exam Vitals and nursing note reviewed. Constitutional: Appearance: Normal appearance. She is well-developed, well-groomed and normal weight. HENT: Head: Normocephalic and atraumatic. Right Ear: Hearing normal. Left Ear: Hearing normal. Eyes: Conjunctiva/sclera: Conjunctivae normal. Musculoskeletal: Comments: She is using a cane for assistance with her gait. She has tenderness to palpation in the cervical and lumbar region with spasms noted in the trapezius and paraspinal muscles. There is tenderness to palpation in the knees bilaterally with crepitus noted. Strength 5/5 throughout. Sensation is intact to light touch throughout. There is a brace on the right foot secondary to foot drop. SLR is negative. Neurological: Mental Status: She is alert and oriented to person, place, and time. Psychiatric: Attention and Perception: Attention and perception normal. Mood and Affect: Mood and affect normal. Behavior: Behavior normal. Behavior is cooperative. Thought Content: Thought content normal. Judgment: Judgment normal. Assessment and Plan ASSESSMENT/PLAN: 1. Degeneration of intervertebral disc of lumbar region - ICD9: 722.52, ICD10: M51.36 (primary diagnosis) The OARRS report has been reviewed and is consistent with the patients medical history and medication intake. The patient underwent a random UDS at today's office visit. The patient will continue with methadone, Percocet, and gabapentin. Patient was previously offered naloxone. She will continue with core strengthening and range of motion exercises. Get us a copy of the 2022 EKG report. The one we have is from 03/20/21. If they do not have a more up to date one, call us and we'll give you an order for a new one. Follow-up in office in 6 weeks time. - TOXASSURE FLEX 23, URINE - METHADONE 5 MG TABLET - OXYCODONE-ACETAMINOPHEN 5 MG-325 MG TABLET (Two stable chronic illnesses/prescription drug management) 2. Lumbar spondylosis - ICD9: 721.3, ICD10: M47.816 3. Degeneration of intervertebral disc of cervical region - ICD9: 722.4, ICD10: M50.30 4. Osteoarthritis, generalized - ICD9: 715.00, ICD10: M15.9 5. Myofascial pain syndrome - ICD9: 729.1, ICD10: M79.18 6. Other care home (current) drug therapy - ICD9: V58.69, ICD10: Z79.899 - TOXASSURE FLEX 23, URINE Tory Mares PA-C documented in this encounter [facility] 06-12-2022 Miscellaneous Notes The following approved medication requests have been transmitted electronically. Requested Prescriptions Pending Prescriptions Disp Refills methadone (DOLOPHINE) 5 mg tablet 60 tablet 0 Sig: Take 1 tablet by mouth every 12 hours as needed for pain for up to 30 days. Tory Mares PA-C Patient phones requesting refills as follows: Requested Prescriptions Pending Prescriptions Disp Refills methadone (DOLOPHINE) 5 mg tablet 60 tablet 0 Sig: Take 1 tablet by mouth every 12 hours as needed for pain for up to 30 days. Please review and advise. Yenny Swann RN documented in this encounter [facility] 05-28-2022 Note HNO ID: [id number] Author: Tory Mares PA-C Service: ? Author Type: Physician Director Marketing Communications Type: Progress Notes Filed: 05/28/2022 10:38 AM Note Text: This note was created using CrossLoop. Subjective Veronica Adan is a 76 year old female. The patient primarily being seen for generalized pain Patient was last seen on: 04/16/22 At that time, the treatment plan was: see notes Current Meds: Methadone last pm/ Percocet prn/ Gabapentin am Efficacy: help Side effects: denies TENS unit: no - never had one How often used: Benefit: Physical Therapy: 2021 - [facility] Dos Santos after hip replacement Last UDS: 01/16/22 Last injection: none OARRS reviewed At the present time, the patient reports benefit with her present analgesic therapy. She denies any adverse effects. Since her previous visit, she denies any hospitalizations or ER visits. Otherwise, she has nothing further to discuss at this time. INTAKE PAIN ASSESSMENT 04/16/2022 05/28/2022 Are you having pain associated with your visit today? Yes, Provider notified Yes, Provider notified Pain Scales Verbal (Numeric Rating or Visual Analog Scale) Verbal (Numeric Rating or Visual Analog Scale) Pain Level 6 5 Pain Location Generalized Generalized Description Aching;Dull;Throbbing Dull Duration Units Years - Frequency Intermittent Continuous Intervention/Comfort measure Medication;Heat Medication;Relaxation;Heat PAST MEDICAL HISTORY Diagnosis Date Ankle fracture 12/2018 right Anxiety state Bronchitis, chronic (HCC) Depression Hypothyroidism ALETHA (obstructive sleep apnea) PAST SURGICAL HISTORY Procedure Laterality Date FOOT SURGERY HX REMOVAL GALLBLADDER REMV CATARACT EXTRACAP,INSERT LENS 2019 TOTAL HIP REPLACEMENT Left 06/14/2021 Social History Tobacco Use Smoking status: Former Smokeless tobacco: Never Substance Use Topics Alcohol use: Not Currently Drug use: Never HPI Review of Systems Constitutional: Negative for fever and unexpected weight change. Musculoskeletal: +back pain, joint pain, muscles cramps/weakness, stiffness, arthritis, sciatica, and leg pain with exertion. Objective BP 127/77 (BP Site: Left Arm, BP Position: Sitting, BP Cuff Size: Regular Adult) Pulse 88 Temp 36.4 ?C (97.6 ?F) (Temporal) Resp 20 SpO2 95% Physical Exam Vitals and nursing note reviewed. Constitutional: Appearance: Normal appearance. She is well-developed, well-groomed and normal weight. HENT: Head: Normocephalic and atraumatic. Right Ear: Hearing normal. Left Ear: Hearing normal. Eyes: Conjunctiva/sclera: Conjunctivae normal. Musculoskeletal: Comments: She is using a cane for assistance with her gait. She has tenderness to palpation in the cervical and lumbar region with spasms noted in the trapezius and paraspinal muscles. There is tenderness to palpation in the knees bilaterally with crepitus noted. Strength 5/5 throughout. Sensation is intact to light touch throughout. There is a brace on the right foot secondary to foot drop. SLR is negative. Neurological: Mental Status: She is alert and oriented to person, place, and time. Psychiatric: Attention and Perception: Attention and perception normal. Mood and Affect: Mood and affect normal. Behavior: Behavior normal. Behavior is cooperative. Thought Content: Thought content normal. Judgment: Judgment normal. Assessment and Plan ASSESSMENT/PLAN: 1. Degeneration of intervertebral disc of lumbar region - ICD9: 722.52, ICD10: M51.36 (primary diagnosis) The OARRS report has been reviewed and is consistent with the patients medical history and medication intake. The patient will continue with methadone, Percocet, and gabapentin. Patient was previously offered naloxone. She will continue with core strengthening and range of motion exercises. Get us a copy of the 2022 EKG report. Follow-up in office in 6 weeks time. 2. Lumbar spondylosis - ICD9: 721.3, ICD10: M47.816 3. Degeneration of intervertebral disc of cervical region - ICD9: 722.4, ICD10: M50.30 4. Osteoarthritis, generalized - ICD9: 715.00, ICD10: M15.9 5. Myofascial pain syndrome - ICD9: 729.1, ICD10: M79.18 Tory Mares PA-C [facility] 05-28-2022 Instructions Tory Mares PA-C - 05/28/2022 10:27 AM EDT The OARRS report has been reviewed and is consistent with the patients medical history and medication intake. The patient will continue with methadone, Percocet, and gabapentin. Patient was previously offered naloxone. She will continue with core strengthening and range of motion exercises. Get us a copy of the 2022 EKG report. Follow-up in office in 6 weeks time. I discussed the patient with Dr. Leal who agrees with my assessment and plan. All of the above is to improve functionality and quality of life. No evidence of drug abuse or diversion is seen at this time. documented in this encounter [facility] 05-28-2022 History of Presen t illness Narrative This note was created using CrossLoop. Subjective Veronica Adan is a 76 year old female. The patient primarily being seen for generalized pain Patient was last seen on: 04/16/22 At that time, the treatment plan was: see notes Current Meds: Methadone last pm/ Percocet prn/ Gabapentin am Efficacy: help Side effects: denies TENS unit: no - never had one How often used: Benefit: Physical Therapy: 2021 - [facility] Dos Santos after hip replacement Last UDS: 01/16/22 Last injection: none OARRS reviewed At the present time, the patient reports benefit with her present analgesic therapy. She denies any adverse effects. Since her previous visit, she denies any hospitalizations or ER visits. Otherwise, she has nothing further to discuss at this time. INTAKE PAIN ASSESSMENT 04/16/2022 05/28/2022 Are you having pain associated with your visit today? Yes, Provider notified Yes, Provider notified Pain Scales Verbal (Numeric Rating or Visual Analog Scale) Verbal (Numeric Rating or Visual Analog Scale) Pain Level 6 5 Pain Location Generalized Generalized Description Aching;Dull;Throbbing Dull Duration Units Years - Frequency Intermittent Continuous Intervention/Comfort measure Medication;Heat Medication;Relaxation;Heat PAST MEDICAL HISTORY Diagnosis Date Ankle fracture 12/2018 right Anxiety state Bronchitis, chronic (HCC) Depression Hypothyroidism ALETHA (obstructive sleep apnea) PAST SURGICAL HISTORY Procedure Laterality Date FOOT SURGERY HX REMOVAL GALLBLADDER REMV CATARACT EXTRACAP,INSERT LENS 2019 TOTAL HIP REPLACEMENT Left 06/14/2021 Social History Tobacco Use Smoking status: Former Smokeless tobacco: Never Substance Use Topics Alcohol use: Not Currently Drug use: Never HPI Review of Systems Constitutional: Negative for fever and unexpected weight change. Musculoskeletal: +back pain, joint pain, muscles cramps/weakness, stiffness, arthritis, sciatica, and leg pain with exertion. Objective BP 127/77 (BP Site: Left Arm, BP Position: Sitting, BP Cuff Size: Regular Adult) Pulse 88 Temp 36.4 C (97.6 F) (Temporal) Resp 20 SpO2 95% Physical Exam Vitals and nursing note reviewed. Constitutional: Appearance: Normal appearance. She is well-developed, well-groomed and normal weight. HENT: Head: Normocephalic and atraumatic. Right Ear: Hearing normal. Left Ear: Hearing normal. Eyes: Conjunctiva/sclera: Conjunctivae normal. Musculoskeletal: Comments: She is using a cane for assistance with her gait. She has tenderness to palpation in the cervical and lumbar region with spasms noted in the trapezius and paraspinal muscles. There is tenderness to palpation in the knees bilaterally with crepitus noted. Strength 5/5 throughout. Sensation is intact to light touch throughout. There is a brace on the right foot secondary to foot drop. SLR is negative. Neurological: Mental Status: She is alert and oriented to person, place, and time. Psychiatric: Attention and Perception: Attention and perception normal. Mood and Affect: Mood and affect normal. Behavior: Behavior normal. Behavior is cooperative. Thought Content: Thought content normal. Judgment: Judgment normal. Assessment and Plan ASSESSMENT/PLAN: 1. Degeneration of intervertebral disc of lumbar region - ICD9: 722.52, ICD10: M51.36 (primary diagnosis) The OARRS report has been reviewed and is consistent with the patients medical history and medication intake. The patient will continue with methadone, Percocet, and gabapentin. Patient was previously offered naloxone. She will continue with core strengthening and range of motion exercises. Get us a copy of the 2022 EKG report. Follow-up in office in 6 weeks time. 2. Lumbar spondylosis - ICD9: 721.3, ICD10: M47.816 3. Degeneration of intervertebral disc of cervical region - ICD9: 722.4, ICD10: M50.30 4. Osteoarthritis, generalized - ICD9: 715.00, ICD10: M15.9 5. Myofascial pain syndrome - ICD9: 729.1, ICD10: M79.18 Tory Mares PA-C documented in this encounter [facility] 05-10-2022 Miscellaneous Notes The following approved medication requests have been transmitted electronically. Requested Prescriptions Pending Prescriptions Disp Refills methadone (DOLOPHINE) 5 mg tablet 60 tablet 0 Sig: Take 1 tablet by mouth every 12 hours as needed for pain for up to 30 days. Tory Mares PA-C Patient phones requesting refills as follows: Requested Prescriptions Pending Prescriptions Disp Refills methadone (DOLOPHINE) 5 mg tablet 60 tablet 0 Sig: Take 1 tablet by mouth every 12 hours as needed for pain for up to 30 days. Please review and advise. Yenny Swann RN documented in this encounter [facility] 04-16-2022 Note HNO ID: [id number] Author: Dorian Leal MD Service: ? Author Type: Physician Type: Progress Notes Filed: 04/17/2022 7:49 AM Note Text: This note was created using [employer]d Viar[employer]. Subjective Veronica Adan is a 76 year old female. The patient primarily being seen for generalized pain Patient was last seen on: 02/27/22 At that time, the treatment plan was: see notes Current Meds: Methadone - last dose this am, Percocet - this am, Gabapentin - last pm Efficacy: help Side effects: none TENS unit: no - never had one How often used: Benefit: Physical Therapy: 2021 - [facility] Dos Santos after hip replacement Last UDS: 01/16/22 Last injection: none OARRS reviewed INTAKE PAIN ASSESSMENT 02/27/2022 04/16/2022 Are you having pain associated with your visit today? Yes, Provider notified Yes, Provider notified Pain Scales Verbal (Numeric Rating or Visual Analog Scale) Verbal (Numeric Rating or Visual Analog Scale) Pain Level 5 6 Pain Location Generalized Generalized Description Aching;Dull Aching;Dull;Throbbing Duration Units Years Years Frequency Intermittent Intermittent Intervention/Comfort measure Medication;Heat Medication;Heat HPI Patient is getting adequate relief from the present regimen and denies any side effect from it. This has improved the patient?s level of functionality and has been able to perform activities of daily living. The patient exhibits no aberrant behavior. The PDMP report and last UDS are both consistent with prescribed medications and are unremarkable. We still have not received her EKG that was supposed to be done last May. Review of Systems Constitutional: Negative for fever and unexpected weight change. Musculoskeletal: +back pain, joint pain, muscles cramps/weakness, stiffness, arthritis, sciatica, and leg pain with exertion. Neurological: Positive for difficulty walking Objective BP 136/77 (BP Site: Left Arm, BP Position: Sitting, BP Cuff Size: Large Adult) Pulse 102 Temp 36.6 ?C (97.9 ?F) (Temporal) Resp 20 Ht 157.5 cm (5' 2 ) Wt 67.1 kg (148 lb) SpO2 96% BMI 27.07 kg/m? Physical Exam Vitals and nursing note reviewed. Constitutional: Appearance: Normal appearance. She is well-developed, well-groomed and normal weight. HENT: Head: Normocephalic and atraumatic. Right Ear: Hearing and external ear normal. Left Ear: Hearing and external ear normal. Nose: Nose normal. Eyes: General: No scleral icterus. Extraocular Movements: Extraocular movements intact. Conjunctiva/sclera: Conjunctivae normal. Comments: Wearing glasses Musculoskeletal: Comments: She is using a cane for assistance with her gait. She has tenderness to palpation in the cervical and lumbar region with spasms noted in the trapezius and paraspinal muscles, left greater than right. There is tenderness to palpation in the knees bilaterally with crepitus noted. Strength 5/5 throughout. Sensation is intact to light touch throughout. There is a brace on the right foot secondary to foot drop. SLR is negative. Skin: General: Skin is warm and dry. Neurological: Mental Status: She is alert and oriented to person, place, and time. Psychiatric: Attention and Perception: Attention and perception normal. Mood and Affect: Mood and affect normal. Behavior: Behavior normal. Behavior is cooperative. Thought Content: Thought content normal. Judgment: Judgment normal. Assessment and Plan ASSESSMENT/PLAN: 1. Degeneration of intervertebral disc of lumbar region - ICD9: 722.52, ICD10: M51.36 (primary diagnosis) The patient will continue with methadone, Percocet, and gabapentin. Patient was previously offered naloxone. She will continue with core strengthening and range of motion exercises. Patient was given an order to have EKG repeated. Follow-up in office in 6 weeks time. 2. Lumbar spondylosis - ICD9: 721.3, ICD10: M47.816 3. Degeneration of intervertebral disc of cervical region - ICD9: 722.4, ICD10: M50.30 4. Osteoarthritis, generalized - ICD9: 715.00, ICD10: M15.9 5. Myofascial pain syndrome - ICD9: 729.1, ICD10: M79.18 Greater than two stable chronic illness and prescription medication management. This document was transcribed using a voice recognition software and may contain minor errors. Dorian Leal MD [facility] 04-16-2022 Instructions Dorian Leal MD - 04/16/2022 10:26 AM EST The patient will continue with methadone, Percocet, and gabapentin. Patient was previously offered naloxone. She will continue with core strengthening and range of motion exercises. Patient was given an order to have EKG repeated. Follow-up in office in 6 weeks time. documented in this encounter [facility] 04-16-2022 History of Presen t illness Narrative This note was created using [employer]. Subjective Veronica Adan is a 76 year old female. The patient primarily being seen for generalized pain Patient was last seen on: 02/27/22 At that time, the treatment plan was: see notes Current Meds: Methadone - last dose this am, Percocet - this am, Gabapentin - last pm Efficacy: help Side effects: none TENS unit: no - never had one How often used: Benefit: Physical Therapy: 2021 - [facility] Dos Santos after hip replacement Last UDS: 01/16/22 Last injection: none OARRS reviewed INTAKE PAIN ASSESSMENT 02/27/2022 04/16/2022 Are you having pain associated with your visit today? Yes, Provider notified Yes, Provider notified Pain Scales Verbal (Numeric Rating or Visual Analog Scale) Verbal (Numeric Rating or Visual Analog Scale) Pain Level 5 6 Pain Location Generalized Generalized Description Aching;Dull Aching;Dull;Throbbing Duration Units Years Years Frequency Intermittent Intermittent Intervention/Comfort measure Medication;Heat Medication;Heat HPI Patient is getting adequate relief from the present regimen and denies any side effect from it. This has improved the patient s level of functionality and has been able to perform activities of daily living. The patient exhibits no aberrant behavior. The PDMP report and last UDS are both consistent with prescribed medications and are unremarkable. We still have not received her EKG that was supposed to be done last May. Review of Systems Constitutional: Negative for fever and unexpected weight change. Musculoskeletal: +back pain, joint pain, muscles cramps/weakness, stiffness, arthritis, sciatica, and leg pain with exertion. Neurological: Positive for difficulty walking Objective BP 136/77 (BP Site: Left Arm, BP Position: Sitting, BP Cuff Size: Large Adult) Pulse 102 Temp 36.6 C (97.9 F) (Temporal) Resp 20 Ht 157.5 cm (5' 2 ) Wt 67.1 kg (148 lb) SpO2 96% BMI 27.07 kg/m Physical Exam Vitals and nursing note reviewed. Constitutional: Appearance: Normal appearance. She is well-developed, well-groomed and normal weight. HENT: Head: Normocephalic and atraumatic. Right Ear: Hearing and external ear normal. Left Ear: Hearing and external ear normal. Nose: Nose normal. Eyes: General: No scleral icterus. Extraocular Movements: Extraocular movements intact. Conjunctiva/sclera: Conjunctivae normal. Comments: Wearing glasses Musculoskeletal: Comments: She is using a cane for assistance with her gait. She has tenderness to palpation in the cervical and lumbar region with spasms noted in the trapezius and paraspinal muscles, left greater than right. There is tenderness to palpation in the knees bilaterally with crepitus noted. Strength 5/5 throughout. Sensation is intact to light touch throughout. There is a brace on the right foot secondary to foot drop. SLR is negative. Skin: General: Skin is warm and dry. Neurological: Mental Status: She is alert and oriented to person, place, and time. Psychiatric: Attention and Perception: Attention and perception normal. Mood and Affect: Mood and affect normal. Behavior: Behavior normal. Behavior is cooperative. Thought Content: Thought content normal. Judgment: Judgment normal. Assessment and Plan ASSESSMENT/PLAN: 1. Degeneration of intervertebral disc of lumbar region - ICD9: 722.52, ICD10: M51.36 (primary diagnosis) The patient will continue with methadone, Percocet, and gabapentin. Patient was previously offered naloxone. She will continue with core strengthening and range of motion exercises. Patient was given an order to have EKG repeated. Follow-up in office in 6 weeks time. 2. Lumbar spondylosis - ICD9: 721.3, ICD10: M47.816 3. Degeneration of intervertebral disc of cervical region - ICD9: 722.4, ICD10: M50.30 4. Osteoarthritis, generalized - ICD9: 715.00, ICD10: M15.9 5. Myofascial pain syndrome - ICD9: 729.1, ICD10: M79.18 Greater than two stable chronic illness and prescription medication management. This document was transcribed using a voice recognition software and may contain minor errors. Dorian Leal MD documented in this encounter [facility] 04-09-2022 Miscellaneous Notes The following approved medication requests have been transmitted electronically. Requested Prescriptions Pending Prescriptions Disp Refills methadone (DOLOPHINE) 5 mg tablet 60 tablet 0 Sig: Take 1 tablet by mouth every 12 hours as needed for pain for up to 30 days. Tory Mares PA-C Patient phones requesting refills as follows: Requested Prescriptions Pending Prescriptions Disp Refills methadone (DOLOPHINE) 5 mg tablet 60 tablet 0 Sig: Take 1 tablet by mouth every 12 hours as needed for pain for up to 30 days. Nora Berry RN documented in this encounter [facility] 02-27-2022 Instructions Tory Mares PA-C - 02/27/2022 10:41 AM EST The OARRS report has been reviewed and is consistent with the patients medical history and medication intake. The patient's most recent urine drug screen has been reviewed and is appropriate and consistent with current therapy. Cotinue with methadone, percocet, and gabapentin The patient was previously offered naloxone but does not feel she needs this at this time. She will call us if she would like a script sent to her pharmacy. Continue with core strengthening and range of motion exercises Repeat EKG 03/2022 to check the QT interval. If she gets a copy of the more recent one done in May, we will go 12 months from that date. FU in the office in [address] Leal. I discussed the patient with Dr. Leal who agrees with my assessment and plan. All of the above is to improve functionality and quality of life. No evidence of drug abuse or diversion is seen at this time. documented in this encounter [facility] 02-27-2022 History of Presen t illness Narrative This note was created using [employer]iar[employer]. Subjective Veronica Adan is a 76 year old female. The patient primarily being seen for generalized pain Patient was last seen on: 01/16/22 At that time, the treatment plan was: see notes Current Meds: Methadone - last dose last pm, Percocet - this am, Gabapentin - last pm Efficacy: helps Side effects: none TENS unit: no - never had one How often used: Benefit: Physical Therapy: 2021 - [facility] Last UDS: 01/16/22 Last injection: none OARRS reviewed At the present time, the patient reports benefit with her present analgesic therapy. She denies any adverse effects. Since her previous visit, she denies any hospitalizations or ER visits. Otherwise, she has nothing further to discuss at this time. INTAKE PAIN ASSESSMENT 01/16/2022 02/27/2022 Are you having pain associated with your visit today? Yes, Provider notified Yes, Provider notified Pain Scales Verbal (Numeric Rating or Visual Analog Scale) Verbal (Numeric Rating or Visual Analog Scale) Pain Level 6 5 Pain Location Generalized Generalized Description Aching;Dull Aching;Dull Duration Units Years Years Frequency Intermittent Intermittent Intervention/Comfort measure Medication;Heat Medication;Heat PAST MEDICAL HISTORY Diagnosis Date Ankle fracture 12/2018 right Anxiety state Bronchitis, chronic (HCC) Depression Hypothyroidism ALETHA (obstructive sleep apnea) PAST SURGICAL HISTORY Procedure Laterality Date FOOT SURGERY HX REMOVAL GALLBLADDER REMV CATARACT EXTRACAP,INSERT LENS 2019 TOTAL HIP REPLACEMENT Left 06/14/2021 Social History Tobacco Use Smoking status: Former Smokeless tobacco: Never Substance Use Topics Alcohol use: Not Currently Drug use: Never HPI Review of Systems Constitutional: Negative for fever and unexpected weight change. Musculoskeletal: +back pain, joint pain, muscles cramps/weakness, stiffness, arthritis, sciatica, and leg pain with exertion. Objective BP 156/80 (BP Site: Left Arm, BP Position: Sitting, BP Cuff Size: Large Adult) Pulse 89 Temp 36.4 C (97.5 F) (Temporal) Resp 20 Ht 157.5 cm (5' 2 ) Wt 67.6 kg (149 lb) SpO2 96% BMI 27.25 kg/m Physical Exam Vitals and nursing note reviewed. Constitutional: Appearance: Normal appearance. She is well-developed, well-groomed and normal weight. HENT: Head: Normocephalic and atraumatic. Right Ear: Hearing normal. Left Ear: Hearing normal. Eyes: Conjunctiva/sclera: Conjunctivae normal. Comments: Wearing glasses Musculoskeletal: Comments: She is using a cane for assistance with her gait. She has tenderness to palpation in the cervical and lumbar region with spasms noted in the trapezius and paraspinal muscles, left greater than right. There is tenderness to palpation in the knees bilaterally with crepitus noted. Strength 5/5 throughout. Sensation is intact to light touch throughout. There is a brace on the right foot secondary to foot drop. SLR is negative. Neurological: Mental Status: She is alert and oriented to person, place, and time. Psychiatric: Attention and Perception: Attention and perception normal. Mood and Affect: Mood and affect normal. Behavior: Behavior normal. Behavior is cooperative. Thought Content: Thought content normal. Judgment: Judgment normal. Assessment and Plan ASSESSMENT/PLAN: 1. Degeneration of intervertebral disc of lumbar region - ICD9: 722.52, ICD10: M51.36 (primary diagnosis) The OARRS report has been reviewed and is consistent with the patients medical history and medication intake. The patient's most recent urine drug screen has been reviewed and is appropriate and consistent with current therapy. Cotinue with methadone, percocet, and gabapentin The patient was previously offered naloxone but does not feel she needs this at this time. She will call us if she would like a script sent to her pharmacy. Continue with core strengthening and range of motion exercises Repeat EKG 03/2022 to check the QT interval. If she gets a copy of the more recent one done in May, we will go 12 months from that date. FU in the office in [address] Leal. - METHADONE 5 MG TABLET - OXYCODONE-ACETAMINOPHEN 5 MG-325 MG TABLET (Two stable chronic illnesses/prescription drug management) 2. Lumbar spondylosis - ICD9: 721.3, ICD10: M47.816 3. Degeneration of intervertebral disc of cervical region - ICD9: 722.4, ICD10: M50.30 4. Osteoarthritis, generalized - ICD9: 715.00, ICD10: M15.9 5. Myofascial pain syndrome - ICD9: 729.1, ICD10: M79.18 Tory Mares PA-C documented in this encounter [facility] 02-21-2022 Miscellaneous Notes The following approved medication requests have been transmitted electronically. Requested Prescriptions Pending Prescriptions Disp Refills gabapentin (NEURONTIN) 300 mg capsule [Pharmacy Med Name: GABAPENTIN 300 MG CAPSULE] 180 capsule 1 Sig: TAKE 1 CAPSULE BY MOUTH TWICE DAILY FOR 180 DAYS. Tory Mares PA-C Requested Prescriptions Pending Prescriptions Disp Refills gabapentin (NEURONTIN) 300 mg capsule [Pharmacy Med Name: GABAPENTIN 300 MG CAPSULE] 180 capsule 1 Sig: TAKE 1 CAPSULE BY MOUTH TWICE DAILY FOR 180 DAYS. Please review and advise. Yenny Swann RN documented in this encounter [facility] 02-06-2022 Miscellaneous Notes The following approved medication requests have been transmitted electronically. Requested Prescriptions Pending Prescriptions Disp Refills methadone (DOLOPHINE) 5 mg tablet 60 tablet 0 Sig: Take 1 tablet by mouth every 12 hours as needed for pain for up to 30 days. Refused Prescriptions Disp Refills gabapentin (NEURONTIN) 300 mg capsule [Pharmacy Med Name: GABAPENTIN 300 MG CAPSULE] 180 capsule 1 Sig: TAKE 1 CAPSULE BY MOUTH TWICE DAILY FOR 180 DAYS. Refused By: YENNY SWANN Reason for Refusal: Patient has requested refill too soon Tory Mares PA-C Patient phones requesting refills as follows: Requested Prescriptions Pending Prescriptions Disp Refills methadone (DOLOPHINE) 5 mg tablet 60 tablet 0 Sig: Take 1 tablet by mouth every 12 hours as needed for pain for up to 30 days. Refused Prescriptions Disp Refills gabapentin (NEURONTIN) 300 mg capsule [Pharmacy Med Name: GABAPENTIN 300 MG CAPSULE] 180 capsule 1 Sig: TAKE 1 CAPSULE BY MOUTH TWICE DAILY FOR 180 DAYS. Refused By: YENNY SWANN Reason for Refusal: Patient has requested refill too soon Please review and advise. Yenny Swann RN documented in this encounter [facility] 01-16-2022 Instructions Tory Mares PA-C - 01/16/2022 10:24 AM EDT The OARRS report has been reviewed and is consistent with the patients medical history and medication intake. The patient underwent a random UDS at today's office visit. Cotinue with methadone, percocet, and gabapentin The patient was previously offered naloxone but does not feel she needs this at this time. She will call us if she would like a script sent to her pharmacy. Continue with core strengthening and range of motion exercises Repeat EKG 03/2022 to check the QT interval. If she gets a copy of the more recent one, we will go 12 months from that date. FU in the office in 6 weeks. FU with your hip surgeon regarding the left hip replacement earlier this year I discussed the patient with Dr. Leal who agrees with my assessment and plan. All of the above is to improve functionality and quality of life. No evidence of drug abuse or diversion is seen at this time. documented in this encounter [facility] 01-16-2022 History of Presen t illness Narrative This note was created using Cross[employer]. Subjective Veronica Adan is a 76 year old female. The patient primarily being seen for generalized pain Patient was last seen on: 12/05/21 At that time, the treatment plan was: see notes Current Meds: Methadone - last dose last pm, Percocet - yesterday, Gabapentin -last pm Efficacy: help Side effects: none TENS unit: no - never had one How often used: Benefit: Physical Therapy: 2021 - [facility] Last UDS: 01/16/22 Last injection: none OARRS reviewed At the present time, the patient reports benefit with her present analgesic therapy. She denies any adverse effects. Since her previous visit, she denies any hospitalizations or ER visits. Otherwise, she has nothing further to discuss at this time. INTAKE PAIN ASSESSMENT 12/05/2021 01/16/2022 Are you having pain associated with your visit today? Yes, Provider notified Yes, Provider notified Pain Scales Verbal (Numeric Rating or Visual Analog Scale) Verbal (Numeric Rating or Visual Analog Scale) Pain Level 6 6 Pain Location Generalized Generalized Description Aching;Dull Aching;Dull Duration Units Years Years Frequency Intermittent Intermittent Intervention/Comfort measure Medication;Relaxation Medication;Heat HPI Review of Systems Constitutional: Negative for fever and unexpected weight change. Musculoskeletal: +back pain, joint pain, muscles cramps/weakness, stiffness, arthritis, sciatica, and leg pain with exertion. PAST MEDICAL HISTORY Diagnosis Date Ankle fracture 12/2018 right Anxiety state Bronchitis, chronic (HCC) Depression Hypothyroidism ALETHA (obstructive sleep apnea) PAST SURGICAL HISTORY Procedure Laterality Date FOOT SURGERY HX REMOVAL GALLBLADDER REMV CATARACT EXTRACAP,INSERT LENS 2019 TOTAL HIP REPLACEMENT Left 06/14/2021 Social History Tobacco Use Smoking status: Former Smokeless tobacco: Never Substance Use Topics Alcohol use: Not Currently Drug use: Never Objective BP 134/52 (BP Site: Left Arm, BP Position: Sitting, BP Cuff Size: Large Adult) Pulse 70 Temp 36.3 C (97.3 F) (Temporal) Resp 20 Ht 157.5 cm (5' 2 ) Wt 63.5 kg (140 lb) SpO2 98% BMI 25.61 kg/m Physical Exam Vitals and nursing note reviewed. Constitutional: Appearance: Normal appearance. She is well-developed, well-groomed and normal weight. HENT: Head: Normocephalic and atraumatic. Right Ear: Hearing normal. Left Ear: Hearing normal. Eyes: Conjunctiva/sclera: Conjunctivae normal. Comments: Wearing glasses Musculoskeletal: Comments: She is using a cane for assistance with her gait. She has tenderness to palpation in the cervical and lumbar region with spasms noted in the trapezius and paraspinal muscles, left greater than right. There is tenderness to palpation in the knees bilaterally with crepitus noted. Strength 5/5 throughout. Sensation is intact to light touch throughout. There is a brace on the right foot secondary to foot drop. SLR is negative. Neurological: Mental Status: She is alert and oriented to person, place, and time. Psychiatric: Attention and Perception: Attention and perception normal. Mood and Affect: Mood and affect normal. Behavior: Behavior normal. Behavior is cooperative. Thought Content: Thought content normal. Judgment: Judgment normal. Assessment and Plan ASSESSMENT/PLAN: 1. Degeneration of intervertebral disc of lumbar region - ICD9: 722.52, ICD10: M51.36 (primary diagnosis) The OARRS report has been reviewed and is consistent with the patients medical history and medication intake. The patient underwent a random UDS at today's office visit. Cotinue with methadone, percocet, and gabapentin The patient was previously offered naloxone but does not feel she needs this at this time. She will call us if she would like a script sent to her pharmacy. Continue with core strengthening and range of motion exercises Repeat EKG 03/2022 to check the QT interval. If she gets a copy of the more recent one, we will go 12 months from that date. FU in the office in 6 weeks. FU with your hip surgeon regarding the left hip replacement earlier this year - DRUG SCR TOXASURE 2. Lumbar spondylosis - ICD9: 721.3, ICD10: M47.816 3. Degeneration of intervertebral disc of cervical region - ICD9: 722.4, ICD10: M50.30 4. Osteoarthritis, generalized - ICD9: 715.00, ICD10: M15.9 5. 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 Requested Prescriptions Pending Prescriptions Disp Refills methadone (DOLOPHINE) 5 mg tablet 60 tablet 0 Sig: Take 1 tablet by mouth every 12 hours as needed for up to 30 days. Tory Mares PA-C Patient phones requesting refills as follows: Requested Prescriptions Pending Prescriptions Disp Refills methadone (DOLOPHINE) 5 mg tablet 60 tablet 0 Sig: Take 1 tablet by mouth every 12 hours as needed for up to 30 days. Nora Berry RN documented in this encounter [facility] 12-05-2021 Instructions Tory Mares PA-C - 12/05/2021 10:22 AM EDT The OARRS report has been reviewed and is consistent with the patients medical history and medication intake. Cotinue with methadone, percocet, and gabapentin The patient was offered naloxone but does not feel she needs this at this time. She will call us if she would like a script sent to her pharmacy. Continue with core strengthening and range of motion exercises Repeat EKG 03/2022 to check the QT interval FU in the office in 6 weeks. FU with your hip surgeon regarding the left hip replacement earlier this year I discussed the patient with Dr. Leal who agrees with my assessment and plan. All of the above is to improve functionality and quality of life. No evidence of drug abuse or diversion is seen at this time. documented in this encounter [facility] 12-05-2021 History of Presen t illness Narrative This note was created using Cross[employer]. Subjective Veronica Adan is a 76 year old female. The patient primarily being seen for generalized pain Patient was last seen on: 10/24/21 At that time, the treatment plan was: see notes Current Meds: Methadone - last dose last pm, Percocet - yesterday, Gabapentin - last pm Efficacy: help Side effects: none TENS unit: no - never had one How often used: Benefit: Physical Therapy: this year at [facility] Last UDS: 06/20/21 Last injection: none OARRS reviewed At the present time, the patient reports benefit with his present analgesic therapy. He denies any adverse effects. Since his previous visit, he denies any hospitalizations or ER visits. Otherwise, he has nothing further to discuss at this time. PAST MEDICAL HISTORY Diagnosis Date Ankle fracture 12/2018 right Anxiety state Bronchitis, chronic (HCC) Depression Hypothyroidism ALETHA (obstructive sleep apnea) PAST SURGICAL HISTORY Procedure Laterality Date FOOT SURGERY HX REMOVAL GALLBLADDER REMV CATARACT EXTRACAP,INSERT LENS 2019 TOTAL HIP REPLACEMENT Left 06/14/2021 Social History Tobacco Use Smoking status: Former Smokeless tobacco: Never Substance Use Topics Alcohol use: Not Currently Drug use: Never INTAKE PAIN ASSESSMENT 10/24/2021 12/05/2021 Are you having pain associated with your visit today? Yes, Provider notified Yes, Provider notified Pain Scales Verbal (Numeric Rating or Visual Analog Scale) Verbal (Numeric Rating or Visual Analog Scale) Pain Level 2 6 Pain Location Back Generalized Description Aching;Dull;Sharp Aching;Dull Duration Units Years Years Frequency Intermittent Intermittent Intervention/Comfort measure Medication;Relaxation;Heat Medication;Relaxation HPI Review of Systems Constitutional: Negative for fever and unexpected weight change. Musculoskeletal: +back pain, joint pain, muscles cramps/weakness, stiffness, arthritis, sciatica, and leg pain with exertion. Objective BP 132/72 (BP Site: Left Arm, BP Position: Sitting, BP Cuff Size: Large Adult) Pulse 78 Temp 36.3 C (97.3 F) (Temporal) Resp 20 Ht 160 cm (5' 3 ) Wt 63 kg (139 lb) SpO2 96% BMI 24.62 kg/m Physical Exam Vitals and nursing note reviewed. Constitutional: Appearance: Normal appearance. She is well-developed, well-groomed and normal weight. HENT: Head: Normocephalic and atraumatic. Right Ear: Hearing normal. Left Ear: Hearing normal. Eyes: Conjunctiva/sclera: Conjunctivae normal. Comments: Wearing glasses Musculoskeletal: Comments: She is using a cane for assistance with her gait. She has tenderness to palpation in the cervical and lumbar region with spasms noted in the trapezius and paraspinal muscles, left greater than right. There is tenderness to palpation in the knees bilaterally with crepitus noted. Strength 5/5 throughout. Sensation is intact to light touch throughout. There is a brace on the right foot secondary to foot drop. SLR is negative. Neurological: Mental Status: She is alert and oriented to person, place, and time. Psychiatric: Attention and Perception: Attention and perception normal. Mood and Affect: Mood and affect normal. Behavior: Behavior normal. Behavior is cooperative. Thought Content: Thought content normal. Judgment: Judgment normal. Assessment and Plan ASSESSMENT/PLAN: 1. Degeneration of intervertebral disc of lumbar region - ICD9: 722.52, ICD10: M51.36 (primary diagnosis) The OARRS report has been reviewed and is consistent with the patients medical history and medication intake. Cotinue with methadone, percocet, and gabapentin The patient was offered naloxone but does not feel she needs this at this time. She will call us if she would like a script sent to her pharmacy. Continue with core strengthening and range of motion exercises Repeat EKG 03/2022 to check the QT interval FU in the office in 6 weeks. 2. Lumbar spondylosis - ICD9: 721.3, ICD10: M47.816 3. Degeneration of intervertebral disc of cervical region - ICD9: 722.4, ICD10: M50.30 4. Osteoarthritis, generalized - ICD9: 715.00, ICD10: M15.9 5. Myofascial pain syndrome - ICD9: 729.1, ICD10: M79.18 Tory Mares PA-C documented in this encounter [facility] 11-28-2021 Miscellaneous Notes The following approved medication requests have been transmitted electronically. Requested Prescriptions Pending Prescriptions Disp Refills methadone (DOLOPHINE) 5 mg tablet 60 tablet 0 Sig: Take 1 tablet by mouth every 12 hours as needed for up to 30 days. Do not start before November 29, 2021. Tory Mares PA-C Patient phones requesting refills as follows: Requested Prescriptions Pending Prescriptions Disp Refills methadone (DOLOPHINE) 5 mg tablet 60 tablet 0 Sig: Take 1 tablet by mouth every 12 hours as needed for up to 30 days. Do not start before November 29, 2021. Yenny Swann RN documented in this encounter [facility] 10-24-2021 Instructions Tory Mares PA-C - 10/24/2021 10:43 AM EDT The OARRS report has been reviewed and is consistent with the patients medical history and medication intake. Cotinue with methadone, percocet, and gabapentin Continue with core strengthening and range of motion exercises Repeat EKG 03/2022 to check the QT interval FU in the office in 6 weeks. FU with your hip surgeon regarding the left hip replacement earlier this year I discussed the patient with Dr. Leal who agrees with my assessment and plan. All of the above is to improve functionality and quality of life. No evidence of drug abuse or diversion is seen at this time. documented in this encounter [facility] 10-24-2021 History of Presen t illness Narrative This note was created using CrossLoop. Subjective Veronica Adan is a 76 year old female. The patient primarily being seen for back , hand pain Patient was last seen on: 09/12/21 At that time, the treatment plan was: see notes Current Meds: Methadone - last dose last pm, Percocet - yesterday, Gabapentin - last pm Efficacy: helping Side effects: none TENS unit: no - never had one How often used: Benefit: Physical Therapy: 2021 at [facility] Last UDS: 06/20/21 Last injection: none OARRS reviewed At the present time, the patient reports benefit with her present analgesic therapy. She denies any adverse effects. Since her previous visit, she denies any hospitalizations or ER visits. Otherwise, she has nothing further to discuss at this time. INTAKE PAIN ASSESSMENT 09/12/2021 10/24/2021 Are you having pain associated with your visit today? Yes, Provider notified Yes, Provider notified Pain Scales Verbal (Numeric Rating or Visual Analog Scale) Verbal (Numeric Rating or Visual Analog Scale) Pain Level 7 2 Pain Location Back-Lower Back Description Sharp;Dull Aching;Dull;Sharp Duration Units - Years Frequency Continuous Intermittent Intervention/Comfort measure Medication;Relaxation;Heat Medication;Relaxation;Heat HPI Review of Systems Constitutional: Negative for fever and unexpected weight change. Musculoskeletal: +back pain, joint pain, muscles cramps/weakness, stiffness, arthritis, sciatica, and leg pain with exertion. PAST MEDICAL HISTORY Diagnosis Date Ankle fracture 12/2018 right Anxiety state Bronchitis, chronic (HCC) Depression Hypothyroidism ALETHA (obstructive sleep apnea) PAST SURGICAL HISTORY Procedure Laterality Date FOOT SURGERY HX REMOVAL GALLBLADDER REMV CATARACT EXTRACAP,INSERT LENS 2019 TOTAL HIP REPLACEMENT Left 06/14/2021 Social History Tobacco Use Smoking status: Former Smokeless tobacco: Never Substance Use Topics Alcohol use: Not Currently Drug use: Never Objective BP 136/65 (BP Site: Left Arm, BP Position: Sitting, BP Cuff Size: Large Adult) Pulse 86 Temp 36.6 C (97.8 F) (Temporal) Resp 20 Ht 160 cm (5' 3 ) Wt 15 kg (33 lb) SpO2 96% BMI 5.85 kg/m Physical Exam Vitals and nursing note reviewed. Constitutional: Appearance: Normal appearance. She is well-developed, well-groomed and normal weight. HENT: Head: Normocephalic and atraumatic. Right Ear: Hearing normal. Left Ear: Hearing normal. Eyes: Conjunctiva/sclera: Conjunctivae normal. Comments: Wearing glasses Musculoskeletal: Comments: She is using a cane for assistance with her gait. She has tenderness to palpation in the cervical and lumbar region with spasms noted in the trapezius and paraspinal muscles, left greater than right. There is tenderness to palpation in the knees bilaterally with crepitus noted. Strength 5/5 throughout. Sensation is intact to light touch throughout. There is a brace on the right foot secondary to foot drop. SLR is negative. Neurological: Mental Status: She is alert and oriented to person, place, and time. Psychiatric: Attention and Perception: Attention and perception normal. Mood and Affect: Mood and affect normal. Behavior: Behavior normal. Behavior is cooperative. Thought Content: Thought content normal. Cognition and Memory: Cognition and memory normal. Judgment: Judgment normal. Assessment and Plan ASSESSMENT/PLAN: 1. Degeneration of intervertebral disc of lumbar region - ICD9: 722.52, ICD10: M51.36 (primary diagnosis) The OARRS report has been reviewed and is consistent with the patients medical history and medication intake. Cotinue with methadone, percocet, and gabapentin Continue with core strengthening and range of motion exercises Repeat EKG 03/2022 to check the QT interval FU in the office in 6 weeks. FU with your hip surgeon regarding the left hip replacement earlier this year - METHADONE 5 MG TABLET (Two stable chronic illnesses/prescription drug management) 2. Lumbar spondylosis - ICD9: 721.3, ICD10: M47.816 - PARKING FOR HANDICAPPED 3. Degeneration of intervertebral disc of cervical region - ICD9: 722.4, ICD10: M50.30 4. Osteoarthritis, generalized - ICD9: 715.00, ICD10: M15.9 5. Myofascial pain syndrome - ICD9: 729.1, ICD10: M79.18 Tory Mares PA-C documented in this encounter [facility] 09-12-2021 Instructions Tory Mares PA-C - 09/12/2021 10:19 AM EDT The OARRS report has been reviewed and is consistent with the patients medical history and medication intake. Cotinue with methadone, percocet, and gabapentin Continue with core strengthening and range of motion exercises Repeat EKG 03/2022 to check the QT interval FU in the office in 6 weeks. FU with your hip surgeon regarding the left hip replacement earlier this year I will discuss the patient with Dr. Leal when he returns to the office. All of the above is to improve functionality and quality of life. No evidence of drug abuse or diversion is seen at this time. documented in this encounter [facility] 09-12-2021 History of Presen t illness Narrative This note was created using Nuvyyoter. Subjective Veronica Adan is a 76 year old female. The patient primarily being seen for back pain Patient was last seen on: 08/01/21 At that time, the treatment plan was: see notes Current Meds: Methadone last pm/ Percocet am/Gabapentin last pm Efficacy: helpful Side effects: denies TENS unit: How often used: Benefit: Physical Therapy: Last UDS: 06/20/21 Last injection: OARRS reviewed At the present time, the patient reports benefit with her present analgesic therapy. She denies any adverse effects. Since her previous visit, she denies any hospitalizations or ER visits. She sees Dr. Mora about the left hip again in about 3 months to check her progress. She has finished the PT and is doing the exercises at home on her own. HPI Review of Systems Constitutional: Negative for fever and unexpected weight change. Musculoskeletal: +back pain, joint pain, muscles cramps/weakness, stiffness, arthritis, sciatica, and leg pain with exertion. PAST MEDICAL HISTORY Diagnosis Date Ankle fracture 12/2018 right Anxiety state Bronchitis, chronic (HCC) Depression Hypothyroidism ALETHA (obstructive sleep apnea) PAST SURGICAL HISTORY Procedure Laterality Date FOOT SURGERY HX REMOVAL GALLBLADDER REMV CATARACT EXTRACAP,INSERT LENS 2019 TOTAL HIP REPLACEMENT Left 06/14/2021 Social History Tobacco Use Smoking status: Former Smoker Smokeless tobacco: Never Used Substance Use Topics Alcohol use: Not Currently Drug use: Never Objective There were no vitals taken for this visit. Physical Exam Vitals and nursing note reviewed. Constitutional: Appearance: Normal appearance. She is well-developed, well-groomed and normal weight. HENT: Head: Normocephalic and atraumatic. Right Ear: Hearing normal. Left Ear: Hearing normal. Eyes: Conjunctiva/sclera: Conjunctivae normal. Comments: Wearing glasses Musculoskeletal: Comments: She is using a cane for assistance with her gait. She has tenderness to palpation in the cervical and lumbar region with spasms noted in the trapezius and paraspinal muscles, left greater than right. There is tenderness to palpation in the knees bilaterally with crepitus noted. Strength 5/5 throughout. Sensation is intact to light touch throughout. There is a brace on the right foot secondary to foot drop. SLR is negative. She has gloves on her hands bilaterally with the fingers cut off. Neurological: Mental Status: She is alert and oriented to person, place, and time. Psychiatric: Attention and Perception: Attention and perception normal. Mood and Affect: Mood and affect normal. Behavior: Behavior normal. Behavior is cooperative. Thought Content: Thought content normal. Cognition and Memory: Cognition and memory normal. Judgment: Judgment normal. Assessment and Plan ASSESSMENT/PLAN: 1. Degeneration of intervertebral disc of lumbar region - ICD9: 722.52, ICD10: M51.36 (primary diagnosis) The OARRS report has been reviewed and is consistent with the patients medical history and medication intake. Cotinue with methadone, percocet, and gabapentin Continue with core strengthening and range of motion exercises Repeat EKG 03/2022 to check the QT interval FU in the office in 6 weeks. FU with your hip surgeon regarding the left hip replacement earlier this year - GABAPENTIN 300 MG CAPSULE - METHADONE 5 MG TABLET 2. Lumbar spondylosis - ICD9: 721.3, ICD10: M47.816 3. Degeneration of intervertebral disc of cervical region - ICD9: 722.4, ICD10: M50.30 4. Osteoarthritis, generalized - ICD9: 715.00, ICD10: M15.9 5. Fibromyositis - ICD9: 729.1, ICD10: M79.7 Tory Mares PA-C documented in this encounter [facility] Evaluation + Plan note No data available for this section [facility] Degeneration of intervertebral disc of lumbar region- Primary Lumbar spondylosis Lumbosacral spondylosis without myelopathy Degeneration of intervertebral disc of cervical region Osteoarthritis, generalized Generalized osteoarthrosis, unspecified site Myofascial pain syndrome Mylagia and myositis, unspecified [facility] Degeneration of intervertebral disc of lumbar region [facility] Diagnosis Degeneration of intervertebral disc of lumbar region- Primary Lumbar spondylosis Lumbosacral spondylosis without myelopathy Degeneration of intervertebral disc of cervical region Osteoarthritis, generalized Generalized osteoarthrosis, unspecified site Myofascial pain syndrome Mylagia and myositis, unspecified [facility] Degeneration of intervertebral disc of lumbar region [facility] Diagnosis Degeneration of intervertebral disc of lumbar region- Primary Lumbar spondylosis Lumbosacral spondylosis without myelopathy Degeneration of intervertebral disc of cervical region Osteoarthritis, generalized Generalized osteoarthrosis, unspecified site Myofascial pain syndrome Mylagia and myositis, unspecified Other care home (current) drug therapy [facility] Degeneration of intervertebral disc of lumbar region [facility] Degeneration of intervertebral disc of lumbar region- Primary Lumbar spondylosis Lumbosacral spondylosis without myelopathy Degeneration of intervertebral disc of cervical region Osteoarthritis, generalized Generalized osteoarthrosis, unspecified site Myofascial pain syndrome Mylagia and myositis, unspecified [facility] Diagnosis Degeneration of intervertebral disc of lumbar region [facility] Diagnosis Degeneration of intervertebral disc of lumbar region- Primary Lumbar spondylosis Lumbosacral spondylosis without myelopathy Degeneration of intervertebral disc of cervical region Osteoarthritis, generalized Generalized osteoarthrosis, unspecified site Myofascial pain syndrome Mylagia and myositis, unspecified Other terminal gauger supervisor (current) drug therapy documented in this [facility]* Diagnosis Degeneration of intervertebral disc of lumbar region documented in [facility]* Diagnosis Degeneration of intervertebral disc of lumbar region- Primary Lumbar spondylosis Lumbosacral spondylosis without myelopathy Degeneration of intervertebral disc of cervical region Osteoarthritis, generalized Generalized osteoarthrosis, unspecified site Myofascial pain syndrome Mylagia and myositis, unspecified [facility] Diagnosis Degeneration of intervertebral disc of lumbar region- Primary Lumbar spondylosis Lumbosacral spondylosis without myelopathy Degeneration of intervertebral disc of cervical region Osteoarthritis, generalized Generalized osteoarthrosis, unspecified site Myofascial pain syndrome Mylagia and myositis, unspecified [facility] Diagnosis Degeneration of intervertebral disc of lumbar region [facility] Diagnosis Degeneration of intervertebral disc of lumbar region- Primary Lumbar spondylosis Lumbosacral spondylosis without myelopathy Degeneration of intervertebral disc of cervical region Osteoarthritis, generalized Generalized osteoarthrosis, unspecified site Myofascial pain syndrome Mylagia and myositis, unspecified Other terminal gauger supervisor (current) drug therapy documented in this encounter [facility] note* Diagnosis Degeneration of intervertebral disc of lumbar region documented in this encounter [facility] Discharge instructions No data available for this section [facility] Progress note No data available for this section [facility] Summary Purpose Family History No Family History Records FoundNo Family History Records FoundNo Family History Records Found Advance Directives No Advanced Directives Records FoundNo Advanced Directives Records FoundNo Advanced Directives Records Found Reason for Referral Specialty Diagnoses / Procedures Referred By Contac t Referred To Contact Diagnoses Degeneration of intervertebral disc of lumbar region Tory Mares PA-C [address] [place] [address] Referral ID Status Reason Start Date Expiration Date Visits Re quested Visits Authorized [id number] Closed 1 1 Additional Source Comments INFORMATION SOURCE (unrecogn ized section and content) DATE CREATED AUTHOR AUTHOR'S ORGANIZ ATION 10/20/[address] [facility] ([place]) DATE CREATED AUTHOR AUTHOR'S ORGANIZ ATION 03/27/2023 [facility] Source Comments (unrecognize d section and content) In the event this informatio n is protected by the Federal Confidentiality of Alcohol and Drug Abuse Patient Records regulations: The Federal rules restrict any use of the information to criminally investigate or prosecute any alcohol or drug abuse patient.[facility] the event this information is protected by the Federal Confidentiality of Alcohol and Drug Abuse Patient Records regulations: The Federal rules restrict any use of the information to criminally investigate or prosecute any alcohol or drug abuse patient.[facility] the event this information is protected by the Federal Confidentiality of Alcohol and Drug Abuse Patient Records regulations: The Federal rules restrict any use of the information to criminally investigate or prosecute any alcohol or drug abuse patient.[facility] the event this information is protected by the Federal Confidentiality of Alcohol and Drug Abuse Patient Records regulations: The Federal rules restrict any use of the information to criminally investigate or prosecute any alcohol or drug abuse patient.[facility] the event this information is protected by the Federal Confidentiality of Alcohol and Drug Abuse Patient Records regulations: The Federal rules restrict any use of the information to criminally investigate or prosecute any alcohol or drug abuse patient.[facility] the event this information is protected by the Federal Confidentiality of Alcohol and Drug Abuse Patient Records regulations: The Federal rules restrict any use of the information to criminally investigate or prosecute any alcohol or drug abuse patient.[facility] the event this information is protected by the Federal Confidentiality of Alcohol and Drug Abuse Patient Records regulations: The Federal rules restrict any use of the information to criminally investigate or prosecute any alcohol or drug abuse patient.[facility] the event this information is protected by the Federal Confidentiality of Alcohol and Drug Abuse Patient Records regulations: The Federal rules restrict any use of the information to criminally investigate or prosecute any alcohol or drug abuse patient.[facility] the event this information is protected by the Federal Confidentiality of Alcohol and Drug Abuse Patient Records regulations: The Federal rules restrict any use of the information to criminally investigate or prosecute any alcohol or drug abuse patient.[facility] the event this information is protected by the Federal Confidentiality of Alcohol and Drug Abuse Patient Records regulations: The Federal rules restrict any use of the information to criminally investigate or prosecute any alcohol or drug abuse patient.[facility] the event this information is protected by the Federal Confidentiality of Alcohol and Drug Abuse Patient Records regulations: The Federal rules restrict any use of the information to criminally investigate or prosecute any alcohol or drug abuse patient.[facility] the event this information is protected by the Federal Confidentiality of Alcohol and Drug Abuse Patient Records regulations: The Federal rules restrict any use of the information to criminally investigate or prosecute any alcohol or drug abuse patient.[facility] the event this information is protected by the Federal Confidentiality of Alcohol and Drug Abuse Patient Records regulations: The Federal rules restrict any use of the information to criminally investigate or prosecute any alcohol or drug abuse patient.[facility] the event this information is protected by the Federal Confidentiality of Alcohol and Drug Abuse Patient Records regulations: The Federal rules restrict any use of the information to criminally investigate or prosecute any alcohol or drug abuse patient.[facility] the event this information is protected by the Federal Confidentiality of Alcohol and Drug Abuse Patient Records regulations: The Federal rules restrict any use of the information to criminally investigate or prosecute any alcohol or drug abuse patient.[facility] the event this information is protected by the Federal Confidentiality of Alcohol and Drug Abuse Patient Records regulations: The Federal rules restrict any use of the information to criminally investigate or prosecute any alcohol or drug abuse patient.[facility] the event this information is protected by the Federal Confidentiality of Alcohol and Drug Abuse Patient Records regulations: The Federal rules restrict any use of the information to criminally investigate or prosecute any alcohol or drug abuse patient.[facility] the event this information is protected by the Federal Confidentiality of Alcohol and Drug Abuse Patient Records regulations: The Federal rules restrict any use of the information to criminally investigate or prosecute any alcohol or drug abuse patient.[facility] the event this information is protected by the Federal Confidentiality of Alcohol and Drug Abuse Patient Records regulations: The Federal rules restrict any use of the information to criminally investigate or prosecute any alcohol or drug abuse patient.[facility] the event this information is protected by the Federal Confidentiality of Alcohol and Drug Abuse Patient Records regulations: The Federal rules restrict any use of the information to criminally investigate or prosecute any alcohol or drug abuse patient.[facility] the event this information is protected by the Federal Confidentiality of Alcohol and Drug Abuse Patient Records regulations: The Federal rules restrict any use of the information to criminally investigate or prosecute any alcohol or drug abuse patient.[facility] the event this information is protected by the Federal Confidentiality of Alcohol and Drug Abuse Patient Records regulations: The Federal rules restrict any use of the information to criminally investigate or prosecute any alcohol or drug abuse patient.[facility] the event this information is protected by the Federal Confidentiality of Alcohol and Drug Abuse Patient Records regulations: The Federal rules restrict any use of the information to criminally investigate or prosecute any alcohol or drug abuse patient.[facility] the event this information is protected by the Federal Confidentiality of Alcohol and Drug Abuse Patient Records regulations: The Federal rules restrict any use of the information to criminally investigate or prosecute any alcohol or drug abuse patient.[facility] the event this information is protected by the Federal Confidentiality of Alcohol and Drug Abuse Patient Records regulations: The Federal rules restrict any use of the information to criminally investigate or prosecute any alcohol or drug abuse patient.[facility] Center[facility] the event this information is protected by the Federal Confidentiality of Alcohol and Drug Abuse Patient Records regulations: The Federal rules restrict any use of the information to criminally investigate or prosecute any alcohol or drug abuse patient.[facility] the event this information is protected by the Federal Confidentiality of Alcohol and Drug Abuse Patient Records regulations: The Federal rules restrict any use of the information to criminally investigate or prosecute any alcohol or drug abuse patient.[facility] the event this information is protected by the Federal Confidentiality of Alcohol and Drug Abuse Patient Records regulations: The Federal rules restrict any use of the information to criminally investigate or prosecute any alcohol or drug abuse patient.[facility] CenterIn the event this information is protected by the Federal Confidentiality of Alcohol and Drug Abuse Patient Records regulations: The Federal rules restrict any use of the information to criminally investigate or prosecute any alcohol or drug abuse patient.[facility] Care Team (unrecognized sect ion and content) Personnel Name: CARL HERNÁNDEZ JR, MD Address: [address] [place] [address] Reason for Visit (unrecogniz ed section and content) Reason Comments Pain Reason Onset Date Comments Refill Request 11/28/2021 Reason Onset Date Comments Refill Request 01/02/2022 Reason Onset Date Comments Refill Request Refill Request 02/06/2022 Reason Comments Refill Request Reason Onset Date Comments Refill Request 04/09/2022 Reason Onset Date Comments Refill Request 05/10/2022 Reason Onset Date Comments Refill Request 06/12/2022 Reason Onset Date Comments Refill Request 08/14/2022 Reason Onset Date Comments Refill Request 09/19/2022 Reason Onset Date Comments Refill Request 10/17/2022 Reason Onset Date Comments Refill Request 01/25/2023 Reason Onset Date Comments Refill Request 02/26/2023 Care Team (unrecognized sect ion and content) Care Team Personnel Name: CARL HERNÁNDEZ JR, MD Member Role: Primary Care Physician Address: Address: [address] [place] [id number] Care Team Related Persons Name: NAT ADAN Address: Home [address] FOR RECORDS PERTAINING TO PATIENTS WHO ARE OR HAVE BEEN ENROLLED IN A CHEMICAL DEPENDENCY/SUBSTANCEABUSE PROGRAM, SOME INFORMATION MAY BE OMITTED. This clinical summary was aggregated from multiple sources. Caution should be exercised in using it in the provision of clinical care. This summary normalizes information from multiple sources, and as a consequence, information in this document may materially change the coding, format and clinical context of patient data. In addition, data may be omitted in some cases. CLINICAL DECISIONS SHOULD BE BASED ON THE PRIMARY CLINICAL RECORDS. [facility]. provides no warranty or guarantee of the accuracy or completeness of information in this document.
[2023-05-01 15:21] LABS: T4 Free Direct 0.94 ng/dL (0.76-1.46); Thyroid Stim Hormone (TSH) 4.42 uIU/mL (0.358-3.74)
[2023-05-03 04:07] LABS: Thyroid Peroxidase AB 18 IU/mL (0-34)
== END | disposition home or self-care (01) ==
LOC: LAB 13:27
PROVIDERS: PCP Family Medicine; Referring Provider Internal Medicine Endocrinology, Diabetes & Metabolism; Visit Provider Internal Medicine Endocrinology, Diabetes & Metabolism
DX: E03.9 Hypothyroidism, unspecified (principal); E04.1 Nontoxic single thyroid nodule
CPT/HCPCS: 36415; 84439; 84443; 86376

== ENCOUNTER → 2023-05-31 | Outpatient (CLI) | payer MEDICARE, OTHER, SELFPAY | END | disposition home or self-care (01) | LOC: PSN 08:59 | PROVIDERS: PCP Family Medicine | DX: M51.36 Other intervertebral disc degeneration, lumbar region (principal); Z79.899 Other long term (current) drug therapy | CPT/HCPCS: 93005 ==

== ENCOUNTER → 2023-08-07 | Outpatient (CLI) | payer MEDICARE, OTHER, SELFPAY ==
--- NOTE | 2023-08-07 07:48 | CT_ITS ---
EXAM: CT CERVICAL SPINE WITHOUT INTRAVENOUS CONTRAST CLINICAL INDICATION: NECK PAIN TECHNIQUE: Helically acquired images were obtained of the cervical spine without intravenous contrast. 2D reformatted images were reviewed. This CT exam was performed using one or more of the following dose reduction techniques: automated exposure control, adjustment of the mA and/or kV according to patient size, and/or use of iterative reconstruction technique. COMPARISON: CT Cervical Spine dated 05/14/2019 FINDINGS: VERTEBRAE: Loss of the normal cervical lordosis which may be due to muscle spasm or head positioning. No acute fracture or subluxation. DISCS/SPINAL CANAL/NEURAL FORAMINA: Progressive arthrosis involving the C1-2 articulation. Multilevel disc space narrowing and vertebral body hypertrophy not significantly changed from prior exam. Stable multilevel facet arthropathy. Narrowing of the C3-4 and right C5-6 neural foramina again noted related to bony hypertrophy. SOFT TISSUES: Normal. No prevertebral soft tissue swelling. LYMPH NODES: Normal. No cervical adenopathy. LUNG APICES: Unremarkable as visualized. CT/Spine Cervical without Contras IMPRESSION: 1. No acute fracture or subluxation. 2. Prominent diffuse spondylosis with advancing degenerative change of the C1-2 articulation. Electronically Signed: Jose Francisco Quigley MD at 14:45 EDT ,
== END | disposition home or self-care (01) ==
LOC: CT 07:42
PROVIDERS: PCP Family Medicine; Referring Provider Family Medicine; Visit Provider Family Medicine
DX: M54.81 Occipital neuralgia (principal)
CPT/HCPCS: 72125

== ENCOUNTER → 2023-12-20 | Outpatient (CLI) | payer MEDICARE, OTHER, SELFPAY ==
--- NOTE | 2023-12-20 09:01 | VDLE_ITS ---
Reason For Study: Bilateral leg edema RIGHT LEFT CFV is compressible, spontaneous, phasic, CFV is compressible, spontaneous, phasic, competent and demonstrates normal competent, and demonstrates normal augmentation. augmentation. FV is compressible, spontaneous, phasic, FV is compressible, spontaneous, phasic, competent and demonstrates normal competent and demonstrates normal augmentation. augmentation. POP V is compressible, spontaneous, phasic, POP V is compressible, spontaneous, phasic, competent and demonstrates normal competent and demonstrates normal augmentation. augmentation. T/P Trunk is compressible. T/P Trunk is compressible. PTV is compressible. PTV is compressible. RT PerV is compressible. LT PerV is compressible. SFJ is competent and measures 0.41 cm. SFJ is competent and measures 0.53 cm. GSV proximal thigh measures 0.18 x 0.18 cm. GSV proximal thigh measures 0.27 x 0.25 cm. GSV at knee measures 0.08 x 0.09 cm. GSV at knee measures 0.24 x 0.25 cm. GSV is competent throughout. GSV is competent throughout. SSV proximal calf is competent and measures SSV proximal calf is competent and measures 0.15 x 0.15 cm. 0.15 x 0.15 cm. Procedure This is a venous duplex using B-mode, color flow and spectral Doppler. Exam performed in department. Patient was scanned in reverse Trendelenburg position during reflux assessment. VL/Venous Duplex US - Diogo Extrem Interpretation Summary Deep veins of the bilateral lower extremities are patent and compressible segme ntally. There is no evidence of bilateral lower extremity deep vein thrombosis. The bilateral great saphenous veins appear patent and compressible segmentally. Negative for reflux bilateral Ordering Physician: Norma Contreras Referring Physician: Norma Contreras Performed By: Rocio Orona RVT
== END | disposition home or self-care (01) ==
LOC: CVS 08:58
PROVIDERS: PCP Family Medicine; Referring Provider Family Medicine; Visit Provider Family Medicine
DX: I73.9 Peripheral vascular disease, unspecified (principal); I87.2 Venous insufficiency (chronic) (peripheral); M79.89 Other specified soft tissue disorders
CPT/HCPCS: 93970

== ENCOUNTER → 2024-02-03 | Outpatient (CLI) | payer MEDICARE, OTHER, SELFPAY ==
[2024-02-03 16:22] LABS: Free T3 1.3 pg/mL (2.18-3.98); T4 Free Direct 0.81 ng/dL (0.76-1.46)
== END | disposition home or self-care (01) ==
LOC: BFHLAB 13:32
PROVIDERS: PCP Family Medicine; Referring Provider Family Medicine; Visit Provider Family Medicine
DX: E03.9 Hypothyroidism, unspecified (principal)
CPT/HCPCS: 36415; 84439; 84443; 84481

== ENCOUNTER → 2024-05-07 | Outpatient (CLI) | payer MEDICARE, OTHER, SELFPAY ==
[2024-05-07 17:53] LABS: Absolute Lymphocyte Count 1.35 X10^3/uL (0.83-4.51); Absolute Neutrophil Count 3.2 X10^3/uL (2.0-7.7); Basophil# 0.03 X10^3/uL; Basophil% 0.6 % (0-1); Eosinophil# 0.27 X10^3/uL; Eosinophils% 5.2 % (0-5); Hematocrit 38.3 % (37-47); Hemoglobin 11.4 g/dL (12.0-15.0); Lymphocyte # 1.35 X10^3/ul (0.83-4.51); Lymphocyte % 26.1 % (19-41); Mean Corp Hgb Conc 29.8 g/dL (32-36); Mean Corpuscular Hgb 25.3 pg (27.0-32.0); Mean Corpuscular Volume 85.1 fL (81-99); Mean Platelet Vol. 11.2 fl (6.2-12.0); Monocyte# 0.27 X10^3/uL; Monocyte% 5.2 % (0-10); NRBC Flagged by Analyzer 0 % (0-5); Neutrophil # 3.23 X10^3/uL (2.7-7.7); Neutrophil % 62.5 % (47-70); Platelet Count 133 K/mm3 (150-450); RBC Distribution Width CV 15.5 % (11.6-14.6); RBC Distribution Width SD 47.8 fl (35.1-43.9); White Blood Count 5.2 K/mm3 (4.4-11.0)
[2024-05-07 18:21] LABS: ALB/GLOB Ratio 0.8 RATIO (0.9-2.4); AST(SGOT) 27 U/L (15-37); Alanine Aminotransfer ALT/SGPT 18 U/L (13-56); Albumin, Serum 3.5 g/dL (3.2-5.0); Alkaline Phosphatase 104 U/L (45-117); Anion Gap 9 (5-15); BUN 15 mg/dL (7-18); BUN/Creat Ratio 11.7 RATIO (10-20); Calcium,Total 9.1 mg/dL (8.5-10.1); Chloride 108 mmol/L (98-107); Cholesterol 126 mg/dL (200); Creatinine, Serum 1.28 mg/dL (0.55-1.02); EST Glomerular Filtration Rate 43 mL/min (>60); Est Glom Filt Rate - Afr Amer 52 mL/min (>60); Free T3 1.5 pg/mL (2.18-3.98); Globulin 4.6 g/dL (2.2-4.2); Glucose 92 mg/dL (74-106); High Density Lipoprotein 38 mg/dL; Potassium 4.1 mmol/L (3.5-5.1); Protein, Total 8.1 g/dL (6.4-8.2); Sodium Level 139 mmol/L (136-145); T4 Free Direct 0.91 ng/dL (0.76-1.46); Triglycerides 157 mg/dL; Very Low Density Lipoprotein 31 mg/dL (5-40)
== END | disposition home or self-care (01) ==
LOC: BFHLAB 14:21
PROVIDERS: PCP Family Medicine; Visit Provider Family Medicine
DX: E03.9 Hypothyroidism, unspecified (principal); E78.5 Hyperlipidemia, unspecified; Z51.81 Encounter for therapeutic drug level monitoring
CPT/HCPCS: 36415; 80053; 80061; 84439; 84443; 84481; 85025

== ENCOUNTER → 2024-06-30 | Outpatient (CLI) | payer MEDICARE, OTHER, SELFPAY ==
--- NOTE | 2024-06-30 09:22 | EKG12_ITS ---
Test Reason : MEDS Blood Pressure : */* mmHG Vent. Rate : 69 BPM Atrial Rate : 69 BPM P-R Int : 160 ms QRS Dur : 78 ms QT Int : 392 ms P-R-T Axes : * -55 4 degrees QTcB Int : 420 ms Normal sinus rhythm Left anterior fascicular block Possible Anterior infarct , age undetermined Abnormal ECG Confirmed by Lamont Beebe ([id number]), supervising editor news reel MILI MARTELL ([id number]) on 07/01/2024 10:04:28 AM Referred By: Lamont Mares Confirmed By: Lamont Beebe
== END | disposition home or self-care (01) ==
LOC: PSN 09:10
PROVIDERS: PCP Family Medicine; Referring Provider Physician Assistant; Visit Provider Physician Assistant
DX: M51.362 Other intervertebral disc degeneration, lumbar region with discogenic back pain and lower extremity pain (principal); Z79.899 Other long term (current) drug therapy
CPT/HCPCS: 93005

== ENCOUNTER → 2024-07-17 | Outpatient (CLI) | payer MEDICARE, OTHER, SELFPAY ==
--- NOTE | 2024-07-17 09:12 | ECHOD_ITS ---
ECHO/Echo Complete Interpretation Summary Normal LV size. Left ventricular systolic function is normal. The left ventricular ejection fraction is 55 %. The study was technically difficult. The study was technically limited. Ordering Physician: Fausto Michel V Referring Physician: Fausto Michel V Performed By: Kiet Hinojosa RCS
== END | disposition home or self-care (01) ==
LOC: CVS 09:06
PROVIDERS: PCP Family Medicine; Referring Provider Internal Medicine Pulmonary Disease; Visit Provider Internal Medicine Pulmonary Disease
DX: G47.33 Obstructive sleep apnea (adult) (pediatric) (principal); J44.9 Chronic obstructive pulmonary disease, unspecified; G47.37 Central sleep apnea in conditions classified elsewhere
CPT/HCPCS: 93306

== ENCOUNTER → 2024-07-27 | Outpatient (CLI) | payer MEDICARE, OTHER, SELFPAY ==
--- NOTE | 2024-07-27 17:37 | CT_ITS ---
PROCEDURE: SINUS/FACIAL BONE REASON FOR EXAM: CHRONIC SINUSITIS TECHNIQUE: CT of the paranasal sinuses without contrast. Coronal and Sagittal reconstruction series were provided. One or more dose reduction techniques were used (e.g., Automated exposure control, adjustment of the mA and/or kV according to patient size, use of iterative reconstruction technique). COMPARISON: None. FINDINGS: The paranasal sinuses appear well formed without wall thickening or sclerosis. The paranasal sinuses and ethmoid air cells are clear. No air-fluid levels. The right and left ostiomeatal complexes, frontoethmoidal and sphenoethmoidal recesses are clear. There appears to be small bilateral maxillary medial wall defects for example axial 75 and 76 which appear patent. Mild rightward deviation of the nasal septum and small nasal spur. The turbinates appear within limits. The orbits appear within limits. Infratemporal fossa fat appears preserved. Pterygopalatine foramen appear within limits. Right and left fossa of Rosenmuller appears symmetric. [place] artifact from dental amalgam. Periapical lucency associated with the left maxillary canine for example axial 53. Bilateral lhie-[id number]-qscj-right TMJ degenerative changes. The mastoids, middle ears and internal auditory canals appear within limits. Marked degenerative changes at C1-2 with apparent osseous fusions of the C1 lateral masses and occipital condyles. Marked degenerative changes and pannus about the dens and degenerative changes of the lateral masses and C2 articulation. Marked bilateral C2-3 facet degenerative changes. There is associated anterior translation of C1 in relation to C2 with offset of the spinal laminar line and apparent central canal narrowing for example sagittal 34 and axial 43. Left carotid calcific plaque formation. CT/Sinus/Facial Bone IMPRESSION: Paranasal sinuses appear within limits as above. Marked skull base C1-2 degenerative changes as described above with offset of t he C1-2 spinal laminar line and appearance of associated central canal narrowing. Reading Location: [id number]
== END | disposition home or self-care (01) ==
LOC: CT 17:34
PROVIDERS: PCP Family Medicine; Referring Provider Otolaryngology; Visit Provider Otolaryngology
DX: J32.8 Other chronic sinusitis (principal); G50.1 Atypical facial pain
CPT/HCPCS: 70486

== ENCOUNTER → 2024-08-25 | Outpatient (CLI) | payer MEDICARE, OTHER, SELFPAY ==
[2024-08-25 10:47] LABS: Absolute Lymphocyte Count 1.29 X10^3/uL (0.83-4.51); Absolute Neutrophil Count 3.5 X10^3/uL (2.0-7.7); Basophil# 0.03 X10^3/uL; Basophil% 0.5 % (0-1); Eosinophils% 7.1 % (0-5); Hemoglobin 12.2 g/dL (12.0-15.0); Lymphocyte # 1.29 X10^3/ul (0.83-4.51); Mean Corp Hgb Conc 31.3 g/dL (32-36); Mean Corpuscular Hgb 26.9 pg (27.0-32.0); Mean Corpuscular Volume 85.9 fL (81-99); Mean Platelet Vol. 9.6 fl (6.2-12.0); Monocyte# 0.36 X10^3/uL; Monocyte% 6.4 % (0-10); NRBC Flagged by Analyzer 0 % (0-5); Neutrophil % 62.6 % (47-70); Platelet Count 142 K/mm3 (150-450); RBC Distribution Width CV 14.8 % (11.6-14.6); RBC Distribution Width SD 46.6 fl (35.1-43.9); Red Blood Count 4.54 M/mm3 (4.2-5.4); White Blood Count 5.6 K/mm3 (4.4-11.0)
[2024-08-25 11:37] LABS: ALB/GLOB Ratio 1.2 RATIO (0.9-2.4); AST(SGOT) 28 U/L (<=31); Alanine Aminotransfer ALT/SGPT 14 U/L (<=34); Alkaline Phosphatase 90 U/L (35-104); Anion Gap 10 (5-15); BUN 14 mg/dL (4-19); BUN/Creat Ratio 12.4 RATIO (10-20); Calcium,Total 9.6 mg/dL (7.6-11.0); Chloride 106 mmol/L (98-108); Creatinine, Serum 1.12 mg/dL (0.70-1.20); EST Glomerular Filtration Rate 51 (>60); Free T3 4.1 pg/mL (2.18-3.98); Globulin 3.5 g/dL (2.2-4.2); Glucose 82 mg/dL (70-99); Potassium 4.7 mmol/L (3.3-5.1); Protein, Total 7.5 g/dL (5.9-8.4); Sodium Level 139 mmol/L (133-145); Total Bilirubin 0.23 mg/dL (0.00-1.30)
== END | disposition home or self-care (01) ==
PROVIDERS: PCP Family Medicine; Referring Provider Family Medicine; Visit Provider Family Medicine
DX: E03.9 Hypothyroidism, unspecified (principal); N18.31 Chronic kidney disease, stage 3a; Z51.81 Encounter for therapeutic drug level monitoring
CPT/HCPCS: 36415; 80053; 84439; 84443; 84481; 85025

== ENCOUNTER → 2025-01-01 | Outpatient (CLI) | payer MEDICARE, OTHER, SELFPAY ==
[2025-01-01 18:32] LABS: Hematocrit 37.8 % (37-47); Hemoglobin 11.8 g/dL (12.0-15.0); Immature Granulocytes Count 0.030 X10^3/uL (0.0-0.0); Mean Corp Hgb Conc 31.2 g/dL (32-36); Mean Corpuscular Volume 88.3 fL (81-99); Mean Platelet Vol. 10.3 fl (6.2-12.0); NRBC Flagged by Analyzer 0 % (0-5); Platelet Count 151 K/mm3 (150-450); RBC Distribution Width CV 14.9 % (11.6-14.6); RBC Distribution Width SD 48.5 fl (35.1-43.9); Red Blood Count 4.28 M/mm3 (4.2-5.4); White Blood Count 6.6 K/mm3 (4.4-11.0)
== END | disposition home or self-care (01) ==
LOC: MTLAB 14:06
PROVIDERS: PCP Family Medicine; Referring Provider Internal Medicine Pulmonary Disease; Visit Provider Internal Medicine Pulmonary Disease
DX: J44.9 Chronic obstructive pulmonary disease, unspecified (principal); R05.9 Cough, unspecified
CPT/HCPCS: 36415; 85025

== ENCOUNTER → 2025-02-25 | Outpatient (CLI) | payer MEDICARE, OTHER, SELFPAY ==
--- NOTE | 2025-02-25 09:40 | MRI_ITS ---
PROCEDURE: BRAIN W/WO CONTRAST 02/25/2025 REASON FOR EXAM: COGNITIVE CHANGES, DOUBLE VISION, DIZZINESS TECHNIQUE: Procedure Code: [id number] Modality: MR Procedure: BRAIN W/WO CONTRAST Multiplanar and multisequence images were obtained. CONTRAST: Clariscan VOLUME: 15 mL COMPARISON: CTs dated 07/27/2024 and 05/14/2019. FINDINGS: Mild motion artifact limits evaluation on the postcontrast sequences. Bilateral cataract surgery is noted. Otherwise the orbits and their contents appear unremarkable. No abnormal signal nor abnormal enhancement within the orbits. The bilateral globes demonstrate normal morphology. The bilateral extra-ocular muscles are symmetric and unremarkable. The bilateral optic nerves appear unremarkable. The bilateral lacrimal glands appear unremarkable. The optic chiasm is unremarkable. Several small scattered nonspecific, nonenhancing FLAIR hyperintense foci are noted within the bilateral cerebral white matter. The stevens-white matter differentiation is appropriate. The ventricles are normal in size and configuration. No midline shift. The midline structures are intact, specifically the corpus callosum, septum pellucidum, pituitary gland, and cerebellar vermis. The cervicomedullary junction appears unremarkable. The paranasal sinuses and mastoid air cells are clear. Diffusion-weighted images demonstrate no restricted diffusion. No abnormal enhancement pattern. MRI/Brain W/WO Contrast IMPRESSION: Unremarkable MRI of the orbits. Nonspecific, nonenhancing scattered FLAIR hyperintense foci within the bilatera l cerebral white matter. These probably represent mild chronic microvascular ischemic changes. Reading Location: [id number]
== END | disposition home or self-care (01) ==
LOC: MRI 09:35
PROVIDERS: PCP Family Medicine; Referring Provider Family Medicine; Visit Provider Family Medicine
DX: R41.89 Other symptoms and signs involving cognitive functions and awareness (principal); R46.89 Other symptoms and signs involving appearance and behavior; R42 Dizziness and giddiness; H53.2 Diplopia
CPT/HCPCS: 70553; A9575

== ENCOUNTER → 2025-03-16 | Outpatient (CLI) | payer MEDICARE, OTHER, SELFPAY ==
[2025-03-16 17:49] LABS: Hematocrit 35.1 % (37-47); Hemoglobin 10.6 g/dL (12.0-15.0); Immature Granulocytes Count 0.020 X10^3/uL (0.0-0.0); Mean Corp Hgb Conc 30.2 g/dL (32-36); Mean Corpuscular Volume 87.3 fL (81-99); Mean Platelet Vol. 10.0 fl (6.2-12.0); NRBC Flagged by Analyzer 0 % (0-5); Platelet Count 157 K/mm3 (150-450); RBC Distribution Width CV 14.2 % (11.6-14.6); RBC Distribution Width SD 45.4 fl (35.1-43.9); Red Blood Count 4.02 M/mm3 (4.2-5.4); White Blood Count 6.0 K/mm3 (4.4-11.0)
[2025-03-16 18:36] LABS: AST(SGOT) 30 U/L (<=31); Alanine Aminotransfer ALT/SGPT 15 U/L (<=34); Albumin, Serum 3.8 g/dL (3.4-4.8); Alkaline Phosphatase 80 U/L (35-104); Anion Gap 10 (7-18); BUN 13 mg/dL (4-19); BUN/Creat Ratio 13.3 RATIO (10-20); Calcium,Total 9.3 mg/dL (7.6-11.0); Carbon Dioxide 23.7 mmol/L (20.0-29.0); Chloride 107 mmol/L (96-106); Free T3 4.3 pg/mL (2.18-3.98); Globulin 3.2 g/dL (2.2-4.2); Glucose 83 mg/dL (70-99); Magnesium 2.1 mg/dL (1.5-2.2); Potassium 4.0 mmol/L (3.5-5.1); Vitamin B12 801 pg/mL (180-914); Vitamin D,25 Hydroxy 48.3 ng/mL (30-100)
[2025-03-16 19:13] LABS: Color, Urine Yellow (Yellow); Glucose, Dipstick Normal (Normal); Ketone-Dipstick 5 mg/dl (Negative); Leukocyte Esterase-Dipstick 100 /ul (Negative); Nitrite-Dipstick Negative (Negative); Occult Blood-Urine 25 /ul (Negative); Protein-Dipstick 30 mg/dl (Negative); Specific Gravity, Urine 1.020 (1.002-1.030)
[2025-03-16 19:15] LABS: Urine Bilirubin Dipstick 1 mg/dL (Negative)
== END | disposition home or self-care (01) ==
LOC: BFHLAB 13:53
PROVIDERS: PCP Family Medicine; Visit Provider Family Medicine
DX: E03.9 Hypothyroidism, unspecified (principal); R05.9 Cough, unspecified; R42 Dizziness and giddiness; E55.9 Vitamin D deficiency, unspecified; R41.89 Other symptoms and signs involving cognitive functions and awareness; R46.89 Other symptoms and signs involving appearance and behavior; R30.0 Dysuria; Z51.81 Encounter for therapeutic drug level monitoring
CPT/HCPCS: 36415; 80053; 81002; 82306; 82607; 83735; 84439; 84443; 84481; 85025; 87086; 87088